=== PATIENT | male | born 1950 | race Caucasian/White ===

== ENCOUNTER 2024-05-26 15:54 | Inpatient (IN) | payer OTHER, MEDICARE, SELFPAY ==
[2024-05-26] VITALS (13 sets, daily range): BP systolic 56–168; BP diastolic 46–93; BMI 25.7; BMI 25.4
--- NOTE | 2024-05-26 10:53 | ED.GENMED ---
History of Present Illness
General
Chief Complaint: Catheter/Tube Problem
Source: patient
Exam Limitations: none
Time Seen by Provider: 05/26/24 10:39
Nursing documentation reviewed up to this point in time: agreed with
History of Present Illness
History of Present Illness:
The patient is a 73-year-old man with a past medical history of end-stage renal disease who receives hemodialysis on Wednesdays and Fridays. Patient was sent by ambulance directly from dialysis today after his left upper extremity dialysis
fistula did not give blood properly. Patient reports that when they tried to stick a needle into the fistula, the blood seemed really dark and clotted. Patient reports that 2 days ago while doing dialysis, they did have some difficulty but were
able to access the fistula. Patient has no other complaints. He denies any increased pain in his left arm or fever.
Past History
Past History
ED Past Medical History: GERD, HTN, Hypercholesterolemia, Renal failure and Other (Gout, kidney transplant, ADHD, neuropathy, diverticulitis, colon polyps, alcohol abuse, cognitive deficiency, kidney stones)
ED Past Surgical History: Orthopedic and Other (AV shunt)
Social History
Tobacco: Former smoker
Alcohol: Occasional
Drug: None
Personal:
Living: with family
Employment: Retired
Family History
Family History: Other (Noncontributory)
Review of Systems
Review of Systems
Allergies reviewed?: Yes
All Other Systems: ROS reviewed and negative except as documented in HPI and ROS
Constitutional: Reports no symptoms
EENT: Reports no symptoms
Respiratory: Reports no symptoms
Cardiac: Reports no symptoms
ABD/GI: Reports no symptoms
: Reports no symptoms
Musculoskeletal: Reports edema
Skin: Reports no symptoms
Neurological: Reports no symptoms
Endocrine: Reports no symptoms
Hematologic/Lymphatic: Reports no symptoms
Psychiatric: Reports no symptoms
Phy Exam
Physical Exam
Physical Exam:
Physical Exam
General: no apparent distress, not acutely ill
Neck: supple. no meningeal signs. normal psoterior pharynx
Heart: s1/s2 regular rate and rhythm,
Lungs: no acute respiratory distress. clear bilaterally
Abdomen: Soft, nontender
Neuro: alert and oriented. no focal neurological deficits
Skin: no rash
Psychiatric: well kept. interactive and cooperative
Extremities: 2+ pitting edema bilateral lower extremities. Edematous left upper extremity with strong thrill of left upper arm fistula.
Course
Orders/Labs/Results
Orders:
Orders
05/26/24 10:50
US Hemodialysis Graft Urgent
Comment:
Reason For Exam: MALFUNCTIONED LEFT UPPER ARM HD FISTULA
05/26/24 12:43
Vascular Surgery Consult Urgent
Consulting Provider: Aditya Lowery
Was physician already notified: Yes
Reason for consult: malfunctioned left arm dialysis fistula
05/26/24 14:29
Complete Blood Count/With Diff Urgent
Comprehensive Metabolic Panel Urgent
Vital Signs
Initial and Last Documented VS:
Initial Vital Signs
Temp Pulse Resp BP Pulse Ox
98.5 F 57 16 149/62 98
05/26/24 10:37 05/26/24 10:37 05/26/24 10:37 05/26/24 10:37 05/26/24 10:37
Last Documented Vital Signs
Temp Pulse Resp BP Pulse Ox
98.5 F 50 16 120/54 98
05/26/24 10:37 05/26/24 13:45 05/26/24 13:45 05/26/24 13:03 05/26/24 10:45
MDM/Problems Addressed
Differential Diagnosis Includes:
Venous thrombosis of left upper extremity, arterial thrombosis of left upper extremity, pseudoaneurysm of fistula
MDM/Problems Addressed:
Patient presents with acute malfunction of left upper extremity fistula
Chronic conditions affecting care:
End-stage renal disease
Acute Exacerbation and/or Progression of Chronic Illness:
Patient may have acute fluid overload due to progression of end-stage renal disease and not getting dialysis today
*Radiology
Radiology exam reviewed: radiology read reviewed
*Pulse Oximetry
Patient hypoxic: no
*EKG
Interpreted by ED Provider?: NA
*Chocolate Maker Interpretation
Rate: Chocolate Maker- N/A
*Critical Care Note
Total Time (30-74mins, 75-104mins- exclusive of procedures): Not Applicable
Data Reviewed
Review of Other/Old Records Reveals: Operative Reports (Left upper extremity fistula surgery performed by Dr. Lowery in 2020. Operative note reviewed by me)
Source: patient
Patient Management
Discussion with other providers: Hospitalist and Other (Case discussed with vascular surgery who recommended starting with a hemodialysis ultrasound, nephrology and interventional radiology also notified)
Update Note
Update Note:
2:20 PM patient evaluated by Dr. Lowery. He will follow-up with the patient in the next few weeks. In the meantime, he suggested that interventional radiology should place a short-term access for dialysis
ED Attending Note
-
Portions of this chart may have been created with voice recognition software.� Occasional wrong word or��sound alike� substitutions may have occurred due to the inherent limitations of voice recognition software.
Discharge Plan
Departure
Patient Disposition: Admit
Date of Disposition: 05/26/24
Time of Disposition: 14:18
Admit to: Med/Surg
Presentation/result/management discussed w/ accepting MD/DO: Hospitalist
Patient with high blood pressure during this ER visit?: No
Condition: Good
Covid-19: Not Applicable
Discharge Problem:
Thrombosis of arteriovenous dialysis fistula
Prescriptions:
No Action
atorvastatin 40 MG tablet
40 mg PO HS
febuxostat 40 MG tablet
40 mg PO DAILY
magnesium oxide 400 mg magnesium Tablet
400 mg PO BID
epoetin erika 2,000 unit/mL Solution
1,000 unit SC MOWEFR
acetaminophen [Tylenol] 325 mg Tablet
650 mg PO Q6HPRN PRN (Reason: mild pain)
melatonin 3 mg Tablet
3 mg PO HS
aspirin 81 mg Tablet,Delayed Release (Dr/Ec)
81 mg PO DAILY
magnesium hydroxide [Milk of Magnesia] 400 mg/5 mL Suspension
2,400 mg PO DAILYPRN PRN (Reason: if no bm by 3rd day)
bisacodyl [Dulcolax (bisacodyl)] 10 mg Suppository
10 mg VA DAILYPRN PRN (Reason: if no bm aftr mom)
Fleet Enema 19-7 gram/118 mL Enema
118 ml VA DAILYPRN PRN (Reason: if bm aftr dulcalax)
gabapentin 100 mg Capsule
100 mg PO HS
tacrolimus [Prograf] 1 mg Capsule
2 mg PO DAILY
metoprolol tartrate 25 mg Tablet
25 mg PO BID
prednisone 20 mg Tablet
20 mg PO DAILY
Referrals:
Forrest Mora DO [Family Provider] -
Interventions
Interventions:
*Risk Screen - Suicide Last Done: 05/26/24 10:37
*General Assessment Last Done: 05/26/24 10:37
*Neglect/Abuse Screening Last Done: 05/26/24 10:37
*ED- Fall Risk Assessment Last Done: 05/26/24 10:37
*ED COVID-19 Vaccine History Last Done: 05/26/24 10:37
LC-Aejidk-Cyfrbjlyix Assessment Last Done: 05/26/24 10:51
ED-Male Genitourinary Assessment Last Done: 05/26/24 10:51
Discharge Date and Time
Print Language: SRI LANKAN
--- NOTE | 2024-05-26 14:19 | CON.VAS ---
Consultation
Consultation Request
Date/Time Consultation Requested: 05/26/24
Date/Time Consultation Performed: 05/26/24
Requesting Provider: ER
Performing Provider: Sebastián
Reason for Consultation: LUE AV fistula issues
Medical History
-
Chief Complaint: Unable to access fistula/complete dialysis.
History of Present Illness:
73-year-old male known to me status post left upper extremity brachiobasilic arteriovenous fistula creation with single-stage basilic vein transposition performed 02/07/2021. Presents to the emergency room with issues on dialysis. [place] were
used to access the fistula and the dark blood or clot was returned. Patient notes that they had some difficulty the last couple times before as well but were able to complete dialysis. Today were unable to complete dialysis. Therefore he was
referred to the emergency room. He is on Friday/Friday/Friday hemodialysis patient.
Past Medical History
Past Medical History: GERD, HTN and Renal Failure
Past Surgical History: Orthopedic and Other (Hernia, AV fistua/basilic vein transposition (see HPI). Renal transplantation ([facility]))
Social History
Tobacco: Former Smoker
Allergies / Home Medications
Allergy/AdvReac Type Severity Reaction Status Date / Time
allopurinol Allergy Anaphylaxis Verified 12/17/22 11:26
- DRESS
syndrome
pollen extracts Allergy Sneezing, Verified 12/17/22 11:26
watery
eyes -
seasonal
�Medication �Instructions �Recorded �Confirmed �Type
gabapentin 300 mg capsule 300 mg PO DAILY Neurological 06/26/17 12/18/22 History
Condition
atorvastatin 40 mg tablet 40 mg PO QPM High cholesterol 10/03/17 12/17/22 History
febuxostat 40 mg tablet 40 mg PO DAILY Gout 02/01/21 12/17/22 History
atovaquone 750 mg/5 mL oral 1,500 mg PO DAILY Prophylaxis 12/17/22 12/17/22 History
suspension
leflunomide 10 mg tablet 10 mg PO DAILY Autoimmune Disorder 12/17/22 12/17/22 History
magnesium oxide 400 mg PO BID Electrolyte Repletion 12/17/22 12/17/22 History
tacrolimus 1 mg capsule, 3 mg PO DAILY Transplant 12/17/22 12/17/22 History
immediate-release
sildenafil 25 mg tablet (Viagra) 25 mg PO DAILY PRN erectile 12/18/22 12/18/22 History
disfunction
valganciclovir 450 mg tablet 900 mg PO DAILY prophylaxis 12/18/22 12/18/22 History
amlodipine 5 mg tablet 5 mg PO HS Blood pressure #0 tabs 12/22/22 Rx
cyanocobalamin (vitamin B-12) 1,000 mcg PO DAILY Supplement #0 12/22/22 Rx
1,000 mcg tablet tabs
dextroamphetamine-amphetamine 15 15 mg PO BID PRN add #0 tabs 12/22/22 Rx
mg tablet (Adderall)
hydrocortisone 1 % topical cream 1 applic topical BID PRN rash to 12/22/22 Rx
back /chest #28.35 grams
labetalol 100 mg tablet 100 mg PO BID Blood pressure #0 12/22/22 Rx
tabs
tacrolimus 1 mg capsule, 3 mg (3 x 1 mg) PO QPM Transplant 12/22/22 Rx
immediate-release #0 caps
Physical Exam
Vital Signs
Temp Pulse Resp BP Pulse Ox
98.5 F 50 16 120/54 98
05/26/24 10:37 05/26/24 13:45 05/26/24 13:45 05/26/24 13:03 05/26/24 10:45
Physical Exam
General: Well Developed, Well Nourished, No Apparent Distress and Comfortable; Negative Respiratory Distress
HEENT: Normocephalic, Anicteric and Atraumatic
Respiratory: Non Labored Respirations
Musculoskeletal: Edema (Left upper extremity fistula with good thrill, however there is hematoma subcutaneous as palpable. Infiltration of the fistula site from recent needle attempt. Mildly pulsatile fullness in the hematoma, but no overtly large
pseudoaneurysm. No tenderness. No skin changes. Hand is pink and warm.)
Skin: Warm
Assessment / Plan
-
End-stage renal disease on hemodialysis.
� His fistula is functional. I reviewed his ultrasound that demonstrates good flow volumes. There is a pseudoaneurysmal component with mostly thrombosed pseudoaneurysm. This is consistent with his exam and that I can palpate hematoma/infiltration
of the fistula. Based on this, there is not much I can do acutely for this fistula as the site is infiltrated. Need to rest that site to allow hematoma to reabsorb and then we can reassess fistula for possible fistulogram if needed. The
ultrasound demonstrates a potential outflow stenosis based on velocity but based on color/grayscale imaging it does not appear to be severely stenotic. Regardless may benefit from fistulogram eventually, but not at this time with infiltration of
the site. I would recommend resting of the fistula for few weeks. Tunneled dialysis catheter placement for now. Discussed with emergency room staff.
Data Reviewed
-
Ultrasound: Image Personally Visualized and interpreted and Report Reviewed by me
Total Time Spent with Patient (in minutes): 25
--- NOTE | 2024-05-26 14:48 | HPS.HSE ---
Addendum entered and electronically signed by Lilian Montaño MD 05/26/24 16:09:
HPI: 73-year-old male with PMH of GERD, HTN, HLD, ESRD on dialysis, ADHD, neuropathy; presented 2/2 AV fistula dysfunction, hence unable to continue with outpatient hemodialysis.
A/P:
# Thrombosis/pseudoaneurysm of left upper arm AV fistula
Vascular recommended not to use fistula for 2 weeks to allow hematoma to reabsorb
IR consulted for Tunneled dialysis
# ESRD on dialysis MWF
Nephrology consult for HD
Prograf and prednisone continued
# Hypertension
metoprolol
# Insomnia
melatonin
# Hyperlipidemia
continue statin
# Gout
continue Febuxostat
# neuropathy
Cont gabapentin
FULL CODE
DVT ppx: SC heparin
Original Note:
Family Physician
-
Family Physician: Forrest Mora, DO
Chief Complaint
-
`unable to access fistular
History of Present Illness
73-year-old male with PMH for GERD, HTN, HLD, ESRD on dialysis, ADHD neuropathy presented to us with fistula dysfunction. the breeder service technician were getting dark blood or clots in return. patient has left upper extremity brachiobasilic arteriovenous
fistula creation with single-stage basilic vein transposition performed 02/07/2021. patient stated left UE swelling for past one month. Patient denied any fever, chills, redness at the site. Patient denied any congestion or cough. Patient denied
any headache, dizziness syncope. Patient denied chest pain or short of breath. Patient denied any abdominal pain, nausea, vomiting or diarrhea. Patient denied dysuria hematuria. Patient has chronic lower extremities edema. Patient was not able
to get full dialysis session today.
Admitted for further management
Medical History
Past Medical History
Past Medical History: Reports Other
Additional Past Medical History:
Alcohol abuse
CKD
Hyperlipidemia
Osteoarthritis
Hyperparathyroidism
Gout
Anemia
Hypertension
Anxiety
Iron deficiency anemia
ADHD
Past Surgical History: Reports Other
Additional Past Surgical History:
Left hip ORIF
Left inguinal hernia
Left knee meniscal surgery
Septoplasty
Cataract surgery
Colonic polypectomy
Left TKA
Right cells, silk sling cancer
Social History
Tobacco: Non-smoker
Alcohol: Former
Drug: None
Personal: Single
Living: Alone
Family History
Family History: Not pertinent
Allergies / Home Medications
Allergies reflects when Allergies were last updated in [facility].
Home Medications with original date entered in [facility]
Allergy/Medication List:
Allergies
Allergy/AdvReac Type Severity Reaction Status Date / Time
allopurinol Allergy Anaphylaxis Verified 12/17/22 11:26
- DRESS
syndrome
pollen extracts Allergy Sneezing, Verified 12/17/22 11:26
watery
eyes -
seasonal
Home Medications
atorvastatin 40 mg tablet 40 mg PO HS High cholesterol 10/03/17
febuxostat 40 mg tablet 40 mg PO DAILY Gout 02/01/21
magnesium oxide 400 mg PO BID Electrolyte Repletion 12/17/22
acetaminophen 325 mg tablet (Tylenol) 650 mg PO Q6HPRN PRN mild pain 05/26/24
aspirin 81 mg tablet,delayed release 81 mg PO DAILY 05/26/24
bisacodyl 10 mg rectal suppository (Dulcolax (bisacodyl)) 10 mg SC DAILYPRN PRN if no bm aftr mom 05/26/24
epoetin erika 2,000 unit/mL injection solution 1,000 unit SC MOWEFR during dialysis 05/26/24
gabapentin 100 mg capsule 100 mg PO HS 05/26/24
magnesium hydroxide 400 mg/5 mL oral suspension (Milk of Magnesia) 2,400 mg PO DAILYPRN PRN if no bm by 3rd day 05/26/24
melatonin 3 mg tablet 3 mg PO HS 05/26/24
metoprolol tartrate 25 mg tablet 25 mg PO BID 05/26/24
prednisone 20 mg tablet 20 mg PO DAILY 05/26/24
sodium phosphates 19 gram-7 gram/118 mL enema (Fleet Enema) 118 ml SC DAILYPRN PRN if bm aftr dulcalax 05/26/24
tacrolimus 1 mg capsule, immediate-release (Prograf) 2 mg PO DAILY daily 05/26/24
Review of Systems
-
Constitutional: Reports No Symptoms
EENT: Reports No Symptoms
Respiratory: Reports No Symptoms
Cardiac: Reports No Symptoms
Abdomen/GI: Reports No Symptoms
: Reports No Symptoms
Musculoskeletal: Reports Edema (Bilateral lower extremities edema, left upper extremity edema)
Skin: Reports No Symptoms
Neurological: Reports No Symptoms
Endocrine: Reports No Symptoms
Hematologic/Lymphatic: Reports No Symptoms
Psych: Reports No Symptoms
Physical Exam
Vital Signs
Vital Signs
Temp Pulse Resp BP Pulse Ox
98.5 F 50 16 120/54 98
05/26/24 10:37 05/26/24 13:45 05/26/24 13:45 05/26/24 13:03 05/26/24 10:45
Physical Exam
General: Well Developed, Well Nourished and No Apparent Distress
HEENT: NormoCephalic, Moist mucous membranes and Atraumatic
Respiratory: Clear
Cardiac: S1/S2 and Regular Rhythm; No Murmur or Rub
GI: Soft, Non Tender, Non Distended and Normal Bowel Sounds; No Organomegaly
Rectal: Deferred by Provider
Musculoskeletal: No Clubbing, No Cyanosis, No Edema and Other (Upper extremity edema, lower extremities edema)
Skin: No Rash
Neuro: AO x 3 and Nonfocal/grossly intact
Psych: Calm
Data Reviewed
-
Diagnostic Radiology: Report Reviewed by me
Lab Data: Labs Reviewed by me
Impression/Plan
-
# Thrombosis/pseudoaneurysm of left upper arm fistula
-Vascular recommended not to use fistula for 2 weeks for that site to allow hematoma to reabsorb
-IR consulted for Tunneled dialysis
-hemodialysis US with upper extremity arteriovenous fistula with velocities and flow volumes as above. Distal outflow vein stenosis with velocity up to 575 cm/s. There is associated somewhat greater than expected pulsatility of the outflow vein
waveforms.
2. Pseudoaneurysm arising from the proximal outflow vein as above, up to 3.7 cm in diameter. This shows only a small amount of color Doppler flow immediately adjacent to the outflow vein, with clot within the majority of the pseudoaneurysm sac.
#ESRD on dialysis
-MWF
-epoetin on dialysis daily
-nephrology consulted
-Prograf and prednisone continued
#Hypertension
-metoprolol continued
#Insomnia
-melatonin
#Hyperlipidemia-continue statin
#Gout-continue Febuxostat
#neuropathy-gabapentin continued
#Diverticulosis
FULL CODE
SC heparin
--- NOTE | 2024-05-26 15:01 | W.CON.NEPH ---
Consultation
-
Date/Time Consultation Requested: 05/26/2024 2:45 PM
Date/Time Consultation Performed: 05/26/2024 3:00
Requesting Provider: Dr. De Santiago
Performing Provider: Dr. De La Vega
Reason for Consultation: End-stage renal disease
Medical History
-
Chief Complaint: End-stage renal disease
History of Present Illness:
The patient is a 73-year-old male with a past medical history of end-stage renal disease who dialyzes Wednesdays and Fridays via his left upper extremity AV fistula. He is a former renal transplant and is maintained chronically on prednisone
and tacrolimus in October of 2021 with now failed transplant. He is maintained on SONJA for his anemia of chronic kidney disease and metoprolol for his history of hypertension. He presented to the hospital with infiltration and hematoma of his
access in his left upper extremity AV fistula. Follow-up arterial duplex of the fistula revealed pseudoaneurysm. He is now going to be admitted as he missed his regularly scheduled dialysis today and currently has no access. He was seen by
vascular surgery who wishes to pursue resting the fistula at this time.
Past Medical History
ESRD Friday
Failed renal transplant from 2021
Hypertension
BK viremia
ADD-takes Adderall
Hyperlipidemia
Gout
GERD
Diverticulosis
Cognitive dysfunction per chart
ED
spinal stenosis
OA
post op Afib 10/2021
PAST SURGICAL HISTORY:
1. Left hip ORIF.
2. Left inguinal hernia.
3. Left knee meniscal surgery.
4. Septoplasty.
5. Cataract surgery.
6. Shoulder arthroscopy.
7. Kidney biopsy 2017.
8. Colonic polypectomy.
9. Left total knee replacement 2018.
10. Reports kidney biopsy arteriogram with coil embolization June
2017.
11. Right leg squamous cell skin cancer.
12. Left upper extremity AV fistula creation January 2021.
13. Kidney transplant October 2021.
14. History of transplant kidney biopsies November 2021April
2022.
15. Transplant original stents removed October 2021.
Social History
Tobacco: Former Smoker
Alcohol: Former
Family History
No CKD
Allergies / Home Medications
Allergy/AdvReac Type Severity Reaction Status Date / Time
allopurinol Allergy Anaphylaxis Verified 12/17/22 11:26
- DRESS
syndrome
pollen extracts Allergy Sneezing, Verified 12/17/22 11:
watery
eyes -
seasonal
�Medication �Instructions �Recorded �Confirmed �Type
atorvastatin 40 mg tablet 40 mg PO HS High cholesterol 10/03/17 05/26/24 History
febuxostat 40 mg tablet 40 mg PO DAILY Gout 02/01/21 05/26/24 History
magnesium oxide 400 mg PO BID Electrolyte Repletion 12/17/22 05/26/24 History
acetaminophen 325 mg tablet 650 mg PO Q6HPRN PRN mild pain 05/26/24 05/26/24 History
(Tylenol)
aspirin 81 mg tablet,delayed 81 mg PO DAILY 05/26/24 05/26/24 History
release
bisacodyl 10 mg rectal suppository 10 mg HI DAILYPRN PRN if no bm 05/26/24 05/26/24 History
(Dulcolax (bisacodyl)) aftr mom
epoetin erika 2,000 unit/mL 1,000 unit SC MOWEFR during 05/26/24 05/26/24 History
injection solution dialysis
gabapentin 100 mg capsule 100 mg PO HS 05/26/24 05/26/24 History
magnesium hydroxide 400 mg/5 mL 2,400 mg PO DAILYPRN PRN if no bm 05/26/24 05/26/24 History
oral suspension (Milk of Magnesia) by 3rd day
melatonin 3 mg tablet 3 mg PO HS 05/26/24 05/26/24 History
metoprolol tartrate 25 mg tablet 25 mg PO BID 05/26/24 05/26/24 History
prednisone 20 mg tablet 20 mg PO DAILY 05/26/24 05/26/24 History
sodium phosphates 19 gram-7 118 ml HI DAILYPRN PRN if bm aftr 05/26/24 05/26/24 History
gram/118 mL enema (Fleet Enema) dulcalax
tacrolimus 1 mg capsule, 2 mg PO DAILY daily 05/26/24 05/26/24 History
immediate-release (Prograf)
Review of Systems
-
History Source: Patient
All other systems: Negative unless noted
Cardiac: No Symptoms
Abdomen/GI: No Symptoms
: Other (Essentially an uric)
Musculoskeletal: Edema and Other (Gait dysfunction weakness in lower extremities)
Physical Exam
Vital Signs
Vital Signs
Temp Pulse Resp BP Pulse Ox
98.5 F 50 16 120/54 98
05/26/24 10:37 05/26/24 13:45 05/26/24 13:45 05/26/24 13:03 05/26/24 10:45
Physical Exam
General: AOx2, Nontoxic , NAD, obese, patient is confused was unable to give me consistent answers
HEENT: PERRL, EOMI, Anicteric, Conjunctivae Clear, Ear/Nose Intact, Hearing Normal, Oropharynx Clear/Moist, Dentition Intact, Facial Symmetry, Neck Supple, Neck: Trachea Midline, No JVD and No Thyromegaly, no Bruits
Respiratory: Coarse to auscultation decreased breath sounds towards the bases and with with normal lung exersion
Cardiac: S1/S2 and Regular Rate/Rhythm
Breast: Deferred by me
Abdomen: Soft, Nontender, Nondistended, Normal Bowel Sounds and No Hepatosplenomegaly
Rectal: Deferred by Provider
Genito-urinary: No Costovertebral Tenderness
Extremities: No Clubbing, No Cyanosis and 2+ pitting edema of all 4 extremities
Skin: No Rash or open lesions
Neuro: Nonfocal/Grossly Intact, CN II-XII (Intact) and Strength (Musculoskeletal exam 5 out of 5 both upper and lower extremities)
Hematologic/Lymphatic: No Cervical Lymphadenopathy, No Submandibular Lymphadenopathy and No Supraclavicular Lymphadenopathy
Psych: Mood/afflect pleasant, Insight/judgement good and Appropriate
Vascular: plus 1 pedal and radial pulses
Vascular Access: AVF (Left upper extremity with thrill and bruit)
Data Reviewed
-
Ultrasound: Report Reviewed by me (Reviewed AV fistula duplex performed today with noted pseudoaneurysm formation by report) and Other
Labs: Labs Reviewed by me (BMP CBC)
Old Records: Reviewed (Reviewed previous nephrology consult from date 12/20/2022 for acute renal failure)
Assessment/Plan
-
Impression:
ESRD MWF ([facility])
Left upper extremity AV fistula with infiltration and pseudoaneurysm
Hypertension
History of failed renal transplant from 2021
Plan:
Patient will require tunneled catheter to let AV fistula heal
IR has been consulted
Dialysis will be provided tomorrow
Orders provided
Appropriate dietary and fluid guidelines to be placed
Patient is massively volume overloaded but does not require acute dialysis today he is not hypoxic
[2024-05-26 15:33] LABS: % Basophils 0.1 % (0-2); % Immature Granulocytes 0.4 % (0-0.5); % Lymphocytes 14.4 % (20.5-51.1); % Monocytes 2.1 % (1.7-9.3); Absolute Lymphocytes 1.2 10^3/uL (1.2-3.4); Absolute Monocytes 0.2 10^3/uL (0.1-0.6); Absolute Neutrophils 6.7 10^3/uL (1.4-6.5); Hematocrit 30.7 % (39.0-52.0); Hemoglobin 9.7 g/dL (13.0-18.0); Mean Corp Hgb Conc. 31.6 g/dL (33.0-37.0); Mean Corpuscular Hgb 31.6 pg (27.0-31.0); Nucleated Red Blood Cells % 0 % (-); Platelet Count 230 10^3/uL (130-400); Red Blood Cell Count 3.07 10^6/uL (4.70-6.10); Red Cell Dist. Width 17.2 % (11.5-14.5); White Blood Cell Count 8.1 10^3/uL (4.8-10.8)
[2024-05-26 15:47] LABS: ALT (SGPT) 40 U/L (0-50); AST (SGOT) 43 U/L (17-59); Albumin 2.2 g/dl (3.5-5.0); Alkaline Phosphatase 115 U/L (38-126); Blood Urea Nitrogen 70 mg/dl (9-20); Calcium 7.7 mg/dl (8.4-10.2); Carbon Dioxide 30 mmol/L (22-30); Chloride 97 mmol/L (98-107); Estimated Creatinine Clearance 10 ml/min; Glucose 107 mg/dl (70-99); Potassium 5.6 mmol/L (3.5-5.1); Sodium 132 mmol/L (135-145); Total Bilirubin 0.4 mg/dl (0.2-1.3); Total Protein 4.6 g/dl (6.3-8.2); eGFR 7.73
[2024-05-26] MEDS: ANCEF 10 IV (16:28)
[2024-05-26] MEDS: LOPRESSOR PO (20:36)
[2024-05-26] MEDS: HEPARIN 5000 UNITS SC (20:39)
[2024-05-26] MEDS: MAG-TAB SR 84 MG PO (20:39)
[2024-05-26] MEDS: LIPITOR 40 MG PO (22:07)
[2024-05-26] MEDS: MELATONIN 3 MG PO (22:07)
[2024-05-26] MEDS: NEURONTIN 100 MG PO (22:07)
[2024-05-27] MEDS: TYLENOL 650 MG PO (05:31)
[2024-05-27 05:41] VITALS: BMI 25.4
[2024-05-27 07:55] VITALS: BP 148/54
[2024-05-27] MEDS: DELTASONE 20 MG PO (07:57)
[2024-05-27] MEDS: MAG-TAB SR 84 MG PO ×2 (07:58→21:45)
[2024-05-27] MEDS: SENOKOT-S 1 TABLET PO (07:58)
[2024-05-27] MEDS: ASPIR LOW (ENTERIC COATED) 81 MG PO (07:58)
[2024-05-27] MEDS: LOPRESSOR PO (07:58)
[2024-05-27] MEDS: HEPARIN SC ×2 (07:59→21:53)
[2024-05-27] MEDS: FLEXBUMIN 25% FOR HEMODIALYSIS 12.5 GRAMS IV ×2 (08:35→10:50)
[2024-05-27] MEDS: MANNITOL 25% 12.5 GRAMS IV ×2 (08:40→10:51)
[2024-05-27 08:51] LABS: Hematocrit 31.1 % (39.0-52.0); Hemoglobin 9.6 g/dL (13.0-18.0)
[2024-05-27 09:09] LABS: Blood Urea Nitrogen 77 mg/dl (9-20); Calcium 7.5 mg/dl (8.4-10.2); Carbon Dioxide 29 mmol/L (22-30); Chloride 96 mmol/L (98-107); Estimated Creatinine Clearance 9 ml/min; Glucose 125 mg/dl (70-99); Potassium 4.8 mmol/L (3.5-5.1); Sodium 132 mmol/L (135-145); eGFR 6.38
[2024-05-27] MEDS: RETACRIT 6000 UNITS IV (09:37)
--- NOTE | 2024-05-27 10:09 | W.PN.HOSP.TC ---
Today's Communication/Plan
-
see A/P
Assessment / Plan
Assessment / Plan
HPI: 73-year-old male with PMH of GERD, HTN, HLD, ESRD on dialysis, ADHD, neuropathy; presented 2/2 AV fistula dysfunction, hence unable to continue with outpatient hemodialysis.
A/P:
# Thrombosis/pseudoaneurysm of left upper arm AV fistula
Vascular recommended to not use fistula for 2 weeks to allow hematoma to reabsorb
s/p Tunneled dialysis placement by IR 05/26/2024
# ESRD on dialysis MWF
Nephrology on board for HD
Prograf and prednisone continued
# Hypertension
metoprolol
# Insomnia
melatonin
# Hyperlipidemia
continue statin
# Gout
continue Febuxostat
# neuropathy
Cont gabapentin
FULL CODE
DVT ppx: SC heparin
Dispo: Pt requesting a different NH. Consulted CM to assist
Anticipated Discharge: 24 - 48 hours
Subjective/Interval History
-
Date of Service: May 27, 2024
Objective Data
-
Labs:
Laboratory Results
05/27/24
07:48
Hgb 9.6 L
Hct 31.1 L
Sodium 132 L
Potassium 4.8
Chloride 96 L
Carbon Dioxide 29
BUN 77 H
Creatinine 8.1 H*
Glucose 125 H
Calcium 7.5 L
Vital Signs:
Vital Signs
Temp Pulse Resp BP Pulse Ox
36.4 C 49 16 148/54 97
05/27/24 07:55 05/27/24 07:58 05/27/24 07:55 05/27/24 07:58 05/27/24 07:55
I&O
05/26/24 05/27/24 05/28/24
06:59 06:59 06:59
Intake Total 240 / 240
Balance 240 / 240
Review of Systems
-
All other systems: Reviewed and negative
Physical Exam
-
General: Well Developed, Well Nourished, No Apparent Distress, Comfortable and Conversant; Negative Respiratory Distress
HEENT: Normocephalic, Atraumatic, Nose Appears Normal and Ears Appear Normal; Negative Oxygen
Respiratory: Clear to Auscultation and Non Labored Respirations; Negative Accessory Resp Muscle Use
Cardiac: Regular Rhythm and S1/S2
GI: Soft, Nontender, Nondistended and Normal Bowel Sounds
Skin: Warm, Dry and IV Access / Catheter Site (R chest wall tunneled catheter )
Neuro: Awake, Alert, Oriented and AO x 3
Psych: Calm and Intact Judgement/Insight
Data Reviewed
-
Labs: Labs Reviewed by me
--- NOTE | 2024-05-27 10:21 | W.PN.NEPH.HD ---
Assessment
-
Patient seen on dialysis
No new complaint
Systolic blood pressure stable at 118 at current UF
Tunneled catheter with good function
Patient should be discharged after dialysis
Next dialysis will be at home unit tomorrow
Progress Note - Hemodialysis
-
Date of Service: May 27, 2024
Duration: 45 minutes and 3 hours
Potassium Bath: 2
Calcium Bath: 2.5
Opti-Dialyzer: 160
Ultrafiltration: Other (4 kg as hemodynamically tolerated)
Blood Flow: 400
Dialysate Flow: 600
Heparin: none
EPO: 6000
--- NOTE | 2024-05-27 11:09 | CM ---
Reviewed the chart notes and spoke with the patient and his ex- Maura at the bedside. Patient currently being dialyzed. The patient was recently at [facility] and transferred to [facility] 10 days ago for short term rehab. The
patient previously resided in a two story home with six steps to enter. The patient prior used a rolling walker with ambulation. The patient was receiving HD at [place] . The patient does not want to return to [facility]. CM explain to the
patient that being on HD is a barrier to placement. CM explained that once PT/OT sees patient referrals can be sent out to other facilities to see if able to accept a person on HD whether on site or be able to transport to original outpatient HD
site. Precert will be required. CM continues to be available to patient/family and is monitoring medical plan for needs at discharge.
Plan: Discharge to SNF/rehab that can accommodate HD. Precert will be required.
[2024-05-27] MEDS: HEPARIN 4300 UNITS INTRACATH (12:08)
[2024-05-27] MEDS: PROGRAF 2 MG PO (13:21)
[2024-05-27] MEDS: ULORIC 40 MG PO (13:21)
[2024-05-27 14:59] VITALS: BMI 25.4
[2024-05-27 15:25] VITALS: BP 138/53
--- NOTE | 2024-05-27 15:40 | WOUNDNOTE ---
[facility] RN note: Patient admitted with thrombosis. Patient lives at home.
See H&P for complete history.
PMH: ESRD on HD, failed renal transplant (prednisone, Tacrolimus), HTN, gout, cognitive dysfunction, former smoker, spinal stenosis, L hip ORIF, L TKR, R leg squamous cell skin cancer.
Wound Location and type/assessment: Patient admitted with: Coccyx/L buttocks stage 3 pressure injury vs deep dermal stage 2 with discolored skin around it. L dorsal foot dry linear abrasion. L upper arm bruises. Blanchable mild red heels.
Appetite: very good.
Pressure redistribution devices in place: [employer]. Air chair cushion. Patient can move self in bed and he lays on his side on his home bed at night.
Plan: Waffle air overlay applied after discussing with ZAFAR Mna. Silicone border foam changed on coccyx/buttocks. Instructed pressure injury prevention measures, suggested he follow up at [facility] and suggested he request VN with production planner scheduler
if goes home when discharged.
Will confirm orders with Dr. Montaño and discussed with ZAFAR Man.
Care plan to be updated and will follow as needed.
Note to case management requested for discharge: VN if goes home.
Recommend follow up at wound care center upon discharge.
[2024-05-27 19:33] LABS: Hepatitis B Surface Antigen Negative (Negative)
[2024-05-27] MEDS: NEURONTIN 100 MG PO (21:45)
[2024-05-27] MEDS: LIPITOR 40 MG PO (21:45)
[2024-05-27] MEDS: MELATONIN 3 MG PO (21:46)
[2024-05-27] MEDS: LOPRESSOR 25 MG PO (21:46)
[2024-05-27 23:01] VITALS: BP 132/53
[2024-05-28 04:49] VITALS: BMI 25.5
[2024-05-28 08:10] VITALS: BP 115/63
--- NOTE | 2024-05-28 08:18 | PN.CDI ---
CDI
- -
CDI:
Physician Documentation Request
Admit Date: 05/26/24 15:54
Dear Doctor Sabra,
Please review the following and provide your response in the progress notes.
Clinical Indicators:
- RN Skin assessments indicate Stage 3 coccyx pressure injury, POA
Physician documentation of the type and location of wounds is required for compliant documentation. Based on the above clinical findings and your assessment, please provide the following in your progress note:
1. Location of the ulcer/wound, including laterality.
2. Type (etiology) of ulcer/wound:
- Diabetic ulcer
- Arterial (ischemic) ulcer
- Venous stasis ulcer
- Pressure (decubitus) ulcer
- Other
Use of terms such as suspected, likely, concern for, or probable (associated with a specific diagnosis that is being evaluated, monitored, or treated as if it exists) are acceptable and can be coded in the inpatient setting, when documented at the
time of discharge.
Thank you,
Jordan Wahl RN
CDI Specialist
Please use your independent medical judgment in providing your response.
*Source: National Pressure Ulcer Advisory Panel (NPUAP)
[2024-05-28] MEDS: HEPARIN 5000 UNITS SC (08:54)
[2024-05-28] MEDS: DELTASONE 20 MG PO (08:55)
[2024-05-28] MEDS: ASPIR LOW (ENTERIC COATED) 81 MG PO (08:55)
[2024-05-28] MEDS: ULORIC 40 MG PO (08:55)
[2024-05-28] MEDS: MAG-TAB SR 84 MG PO ×2 (08:55→21:28)
[2024-05-28] MEDS: LOPRESSOR 25 MG PO ×2 (08:56→21:29)
[2024-05-28] MEDS: PROGRAF 2 MG PO (08:57)
[2024-05-28 11:15] VITALS: BP 127/67
[2024-05-28 11:35] VITALS: BP 129/63; PULSE 68; O2SAT 98
--- NOTE | 2024-05-28 12:11 | W.PN.HOSP.TC ---
Addendum entered and electronically signed by Lilian Montaño MD 05/28/24 12:55:
# Stage 3 coccyx pressure injury, POA
Original Note:
Today's Communication/Plan
-
see A/P
Assessment / Plan
Assessment / Plan
HPI: 73-year-old male with PMH of GERD, HTN, HLD, ESRD on dialysis, ADHD, neuropathy; presented 2/2 AV fistula dysfunction, hence unable to continue with outpatient hemodialysis.
A/P:
# Thrombosis/pseudoaneurysm of left upper arm AV fistula
Vascular recommended to not use fistula for 2 weeks to allow hematoma to reabsorb
s/p Tunneled dialysis placement by IR 05/26/2024
# ESRD on dialysis MWF
Nephrology on board for HD need
Prograf and prednisone continued
# Hypertension
metoprolol
# Insomnia
melatonin
# Hyperlipidemia
continue statin
# Gout
continue Febuxostat
# neuropathy
Cont gabapentin
FULL CODE
DVT ppx: SC heparin
Dispo: Pt requesting a different NH. CM on board to facilitate
Anticipated Discharge: > 48 hours
Subjective/Interval History
-
Date of Service: May 28, 2024
Objective Data
-
Vital Signs:
Vital Signs
Temp Pulse Resp BP Pulse Ox
36.7 C 67 17 115/63 98
05/28/24 08:10 05/28/24 08:56 05/28/24 08:10 05/28/24 08:56 05/28/24 11:16
I&O
05/27/24 05/28/24 05/29/24
06:59 06:59 06:59
Intake Total 240 / 240 960 / 960
Output Total 0 / 0
Balance 240 / 240 960 / 960
Review of Systems
-
All other systems: Reviewed and negative
Physical Exam
-
General: Well Developed, Well Nourished, No Apparent Distress, Comfortable and Conversant; Negative Respiratory Distress
HEENT: Normocephalic, Atraumatic, Nose Appears Normal and Ears Appear Normal; Negative Oxygen
Respiratory: Clear to Auscultation and Non Labored Respirations; Negative Accessory Resp Muscle Use
Cardiac: Regular Rhythm and S1/S2
GI: Soft, Nontender, Nondistended and Normal Bowel Sounds
Musculoskeletal: Edema, Right Lower Extrem and Edema, Left Lower Extrem
Skin: Warm, Dry and IV Access / Catheter Site (R chest wall tunneled catheter )
Neuro: Awake, Alert, Oriented and AO x 3
Psych: Calm and Intact Judgement/Insight
Data Reviewed
-
Labs: Labs Reviewed by me
[2024-05-28 14:02] LABS: Blood Urea Nitrogen 53 mg/dl (9-20); Calcium 7.5 mg/dl (8.4-10.2); Carbon Dioxide 30 mmol/L (22-30); Chloride 95 mmol/L (98-107); Estimated Creatinine Clearance 13 ml/min; Glucose 153 mg/dl (70-99); Potassium 4.3 mmol/L (3.5-5.1); Sodium 131 mmol/L (135-145); eGFR 9.93
[2024-05-28] MEDS: RETACRIT 4000 UNITS IV (14:11)
[2024-05-28] MEDS: MANNITOL 25% 12.5 GRAMS IV (15:03)
--- NOTE | 2024-05-28 15:05 | CM ---
Reviewed the chart notes. Patient received HD today. [facility] and [place] are looking into cost of transportation from SNF to patient's home HD center [facility]. CM continues to be available to patient/family and is
monitoring medical plan for needs at discharge.
Plan: Discharge to SNF/rehab. Precert will be required.
[2024-05-28 15:10] VITALS: BP 102/53
[2024-05-28] MEDS: FLEXBUMIN 25% FOR HEMODIALYSIS 12.5 GRAMS IV (15:10)
--- NOTE | 2024-05-28 15:21 | W.PN.NEPH.HD ---
Assessment
-
pt seen during HD
vital stable
SBP 106, decreasing, UF lowered
likely extra UF tomorrow
CVC functions well
Progress Note - Hemodialysis
-
Date of Service: May 28, 2024
Duration: 30 minutes and 3 hours
Potassium Bath: 2
Calcium Bath: 2.5
Opti-Dialyzer: 160
Ultrafiltration: Other (3-3.5kg)
Blood Flow: 400
Dialysate Flow: 600
Heparin: no
EPO: 4000
[2024-05-28 16:42] VITALS: BP 140/60
[2024-05-28] MEDS: LIPITOR 40 MG PO (21:29)
[2024-05-28] MEDS: NEURONTIN 100 MG PO (21:29)
[2024-05-28] MEDS: MELATONIN 3 MG PO (21:29)
[2024-05-28] MEDS: HEPARIN SC (21:30)
[2024-05-28 23:15] VITALS: BP 127/67
[2024-05-29 00:22] VITALS: BP 127/67
[2024-05-29 02:56] LABS: Glucose - Point of Care 95 mg/dl (70-99)
[2024-05-29 03:13] VITALS: BP 143/68
--- NOTE | 2024-05-29 03:34 | PTCARENOTE ---
Pt on the call gilmore; states he woke from a sleep 'feeling funny'. Pt is unable to elaborate on his symptoms, just reiterates he feels 'weird'. AAOx3, no confusion noted, able to tell RN why he is in the hospital and the POC discussed at the
beginning of the shift, denies feeling confused, speech is clear and precise, denies having issues finding his words. Pt denies CP/palpitations/SOB/weakness. BP 143/68, HR 58. Accuchek 95. After a few minutes without intervention, pt reports he
feels fine, offers no complaints and states the 'funny feeling' has passed. Pt states he has received extra dialysis the last few days after missing a session and was extra tired this evening, he suspects he feel into a deep sleep and woke up
unexpectedly and wasn't fully awake. Covering SPEECH TEACHER notified, no new orders at this time. Pt resting comfortably in bed, call gilmore within reach.
[2024-05-29] MEDS: TYLENOL 650 MG PO (04:47)
[2024-05-29] MEDS: SENOKOT-S 1 TABLET PO ×2 (06:04→21:32)
[2024-05-29 07:50] VITALS: BP 155/61
[2024-05-29] MEDS: ULORIC 40 MG PO (08:58)
[2024-05-29] MEDS: ASPIR LOW (ENTERIC COATED) 81 MG PO (08:58)
[2024-05-29] MEDS: DELTASONE 20 MG PO (09:01)
[2024-05-29] MEDS: LOPRESSOR PO ×2 (09:01→20:38)
[2024-05-29] MEDS: MAG-TAB SR 84 MG PO ×2 (09:02→20:40)
[2024-05-29] MEDS: PROGRAF 2 MG PO (09:02)
[2024-05-29] MEDS: HEPARIN 5000 UNITS SC (09:03)
--- NOTE | 2024-05-29 10:41 | W.PN.HOSP.TC ---
Today's Communication/Plan
-
Doing well. Continue to work on getting appropriate bed.
Assessment / Plan
Assessment / Plan
73-year-old male with PMH of:
GERD,
essential HTN,
HLD,
ESRD on dialysis,
ADHD,
neuropathy
presented 2/2 AV fistula dysfunction, hence unable to continue with outpatient hemodialysis.
A/P:
1. Thrombosis/pseudoaneurysm of left upper arm AV fistula
Vascular recommended to not use fistula for 2 weeks to allow hematoma to reabsorb
s/p Tunneled dialysis placement by IR 05/26/2024
Further Management per surgical team
Ready to be discharged when appropriate bed found
2. ESRD on dialysis MWF
Nephrology on board for HD need
Prograf and prednisone continued
Ready to be discharged when appropriate bed found
3. Essential Hypertension - stable, Continue metoprolol
4. Insomnia - chronic, continue melatonin
5. Hyperlipidemia - Chronic - continue statin
6. Gout - chronic - continue Febuxostat
7. neuropathy - chronic - Cont gabapentin
FULL CODE
DVT ppx: SC heparin
Dispo: Pt requesting a different NH. CM on board to facilitate
Anticipated Discharge: 24 - 48 hours
Subjective/Interval History
-
Date of Service: May 29, 2024
Feels tired, but otherwise ok.
Objective Data
-
Labs:
Laboratory Results
05/29/24
06:00
Sodium Pending
Potassium Pending
Chloride Pending
Carbon Dioxide Pending
BUN Pending
Creatinine Pending
Glucose Pending
Calcium Pending
Vital Signs:
Vital Signs
Temp Pulse Resp BP Pulse Ox
98.4 F 54 16 155/61 99
05/29/24 07:50 05/29/24 09:01 05/29/24 07:50 05/29/24 09:01 05/29/24 07:50
I&O
05/28/24 05/29/24 05/30/24
06:59 06:59 07:59
Intake Total 960 / 960 930 / 930
Output Total 0 / 0 300 / 300
Balance 960 / 960 630 / 630
Review of Systems
-
History Source: Patient
All other systems: Reviewed and negative
Constitutional: Reports Fatigue
Physical Exam
-
General: Well Developed, Well Nourished, No Apparent Distress, Comfortable and Conversant
HEENT: Nose Appears Normal and Ears Appear Normal
Respiratory: Clear to Auscultation
Cardiac: Regular Rhythm and S1/S2
GI: Soft, Nontender and Nondistended
Musculoskeletal: Edema, Right Lower Extrem and Edema, Left Lower Extrem
Skin: Warm and Dry
Neuro: Awake, Alert and Oriented
Psych: Calm
Data Reviewed
-
Labs: Labs Reviewed by me
[2024-05-29] MEDS: FLEXBUMIN 25% FOR HEMODIALYSIS 12.5 GRAMS IV ×2 (13:45→14:40)
[2024-05-29] MEDS: MANNITOL 25% 12.5 GRAMS IV ×2 (13:51→14:44)
[2024-05-29 13:55] LABS: Blood Urea Nitrogen 42 mg/dl (9-20); Calcium 7.6 mg/dl (8.4-10.2); Carbon Dioxide 32 mmol/L (22-30); Chloride 92 mmol/L (98-107); Estimated Creatinine Clearance 16 ml/min; Glucose 170 mg/dl (70-99); Potassium 4.2 mmol/L (3.5-5.1); Sodium 131 mmol/L (135-145); eGFR 13.26
--- NOTE | 2024-05-29 14:54 | W.PN.NEPH.HD ---
Assessment
-
pt seen during HD
vitals stable
UF as much tolerates
edema improving
AVF +thrill, resting
CVC functioning
await placecment
Progress Note - Hemodialysis
-
Date of Service: May 29, 2024
Duration: 30 minutes and 2 hours
Opti-Dialyzer: 160
Ultrafiltration: Other (3.5-4kg)
Blood Flow: 350
Dialysate Flow: 600
Heparin: no
EPO: no
[2024-05-29] MEDS: HEPARIN 4300 UNITS INTRACATH (15:26)
[2024-05-29 15:35] VITALS: BP 124/50
[2024-05-29] MEDS: HEPARIN SC (20:39)
[2024-05-29] MEDS: NEURONTIN 100 MG PO (21:30)
[2024-05-29] MEDS: MELATONIN 3 MG PO (21:30)
[2024-05-29] MEDS: LIPITOR 40 MG PO (21:30)
[2024-05-30 06:00] VITALS: BMI 23.4
[2024-05-30 07:11] LABS: Blood Urea Nitrogen 56 mg/dl (9-20); Calcium 8.2 mg/dl (8.4-10.2); Carbon Dioxide 30 mmol/L (22-30); Chloride 95 mmol/L (98-107); Estimated Creatinine Clearance 13 ml/min; Glucose 86 mg/dl (70-99); Potassium 4.4 mmol/L (3.5-5.1); Sodium 132 mmol/L (135-145); eGFR 10.15
[2024-05-30 07:40] VITALS: BP 143/57
[2024-05-30] MEDS: ASPIR LOW (ENTERIC COATED) 81 MG PO (08:13)
[2024-05-30] MEDS: PROGRAF 2 MG PO (08:13)
[2024-05-30] MEDS: MAG-TAB SR 84 MG PO ×2 (08:13→21:32)
[2024-05-30] MEDS: ULORIC 40 MG PO (08:13)
[2024-05-30] MEDS: DELTASONE 20 MG PO (08:15)
[2024-05-30] MEDS: LOPRESSOR 25 MG PO (08:15)
[2024-05-30] MEDS: HEPARIN 5000 UNITS SC (08:20)
--- NOTE | 2024-05-30 14:57 | W.PN.HOSP.TC ---
Today's Communication/Plan
-
Patient requesting more sodium and potassium in his diet. Nephrology, please review if request is possible.
Assessment / Plan
Assessment / Plan
73-year-old male with PMH of:
GERD,
essential HTN,
HLD,
ESRD on dialysis,
ADHD,
neuropathy
presented 2/2 AV fistula dysfunction, hence unable to continue with outpatient hemodialysis.
A/P:
1. Thrombosis/pseudoaneurysm of left upper arm AV fistula
Vascular recommended to not use fistula for 2 weeks to allow hematoma to reabsorb
s/p Tunneled dialysis placement by IR 05/26/2024
Further Management per surgical team
Ready to be discharged when appropriate bed found
2. ESRD on dialysis MWF
Nephrology on board for HD need
Prograf and prednisone continued
Ready to be discharged when appropriate bed found
3. Essential Hypertension - stable, Continue metoprolol
4. Insomnia - chronic, continue melatonin
5. Hyperlipidemia - Chronic - continue statin
6. Gout - chronic - continue Febuxostat
7. neuropathy - chronic - Cont gabapentin
FULL CODE
DVT ppx: SC heparin
Dispo: Pt requesting a different NH. CM on board to facilitate
Anticipated Discharge: 24 - 48 hours
Subjective/Interval History
-
Date of Service: May 30, 2024
Feels well, wants sodium and potassium restrictions liberated.
Objective Data
-
Labs:
Laboratory Results
05/30/24
06:29
Sodium 132 L
Potassium 4.4
Chloride 95 L
Carbon Dioxide 30
BUN 56 H
Creatinine 5.5 H*
Glucose 86
Calcium 8.2 L
Vital Signs:
Vital Signs
Temp Pulse Resp BP Pulse Ox
98.0 F 65 16 143/57 98
05/30/24 07:40 05/30/24 08:15 05/30/24 07:40 05/30/24 08:15 05/30/24 08:11
I&O
05/29/24 05/30/24 05/31/24
05:59 06:59 06:59
Intake Total
Output Total
Balance
Review of Systems
-
History Source: Patient
All other systems: Reviewed and negative
Physical Exam
-
General: Well Developed, Well Nourished, No Apparent Distress and Comfortable
HEENT: Normocephalic, Atraumatic, Moist Mucous Membranes, Nose Appears Normal and Ears Appear Normal
Respiratory: Clear to Auscultation and Decreased Breath Sounds
Cardiac: Regular Rhythm, S1/S2 and Murmur
GI: Soft, Nontender and Nondistended
Musculoskeletal: No Clubbing and No Cyanosis
Skin: Warm and Dry
Neuro: Awake, Alert and Oriented
Psych: Calm
Data Reviewed
-
Labs: Labs Reviewed by me
[2024-05-30 15:35] VITALS: BP 150/63
--- NOTE | 2024-05-30 15:43 | W.PN.NEPH.PH ---
Today's Communication / Plan
-
HD tomorrow
Assessment/Plan
-
Impression:
ESRD MWF ([facility] ?)
Left upper extremity AV fistula with infiltration and pseudoaneurysm
Hypertension
History of failed renal transplant from 2021
Plan:
HD tomorrow
AVF still resting, CVC functioning
UF as tolerates as he still has edema
renal diet and FR
-
-
Date of Service: May 30, 2024
CC / HPI / ROS
-
Chief Complaint:
ESRD, failed KTP
History of Present Illness:
wt si down
no fever
BP stable
sodoum 132
Review of Systems:
no cp or sob at rest
no n/v
Labs
-
Labs:
WBC 8.1 10^3/uL (4.8-10.8) 05/26/24 15:10
RBC 3.07 10^6/uL (4.70-6.10) L 05/26/24 15:10
Hgb 9.6 g/dL (13.0-18.0) L 05/27/24 07:48
Hct 31.1 % (39.0-52.0) L 05/27/24 07:48
Plt Count 230 10^3/uL (130-400) 05/26/24 15:10
Sodium 132 mmol/L (135-145) L 05/30/24 06:29
Potassium 4.4 mmol/L (3.5-5.1) 05/30/24 06:29
Chloride 95 mmol/L (98-107) L 05/30/24 06:29
Carbon Dioxide 30 mmol/L (22-30) 05/30/24 06:29
BUN 56 mg/dl (9-20) H 05/30/24 06:29
Creatinine 5.5 mg/dL (0.7-1.3) H* 05/30/24 06:29
eGFR 10.15 05/30/24 06:29
Glucose 86 mg/dl (70-99) 05/30/24 06:29
Calcium 8.2 mg/dl (8.4-10.2) L 05/30/24 06:29
Albumin 2.2 g/dl (3.5-5.0) L 05/26/24 15:10
Physical Exam
-
Vital Signs:
Vital Signs
Temp Pulse Resp BP Pulse Ox
98.0 F 65 16 143/57 98
05/30/24 07:40 05/30/24 08:15 05/30/24 07:40 05/30/24 08:15 05/30/24 08:11
Cardiovascular:: Regular rate and rhythm
Respiratory:: Bilateral: CTA
Lung Excursion:: Normal
Abdomen:: Nontender and Soft
Bowel Sounds:: Normal
Extremity Edema:: +2: Bilateral:
Jacob Catheter: No
Other Findings::
left UE AVF +thrill
[2024-05-30] MEDS: HEPARIN SC (20:57)
[2024-05-30] MEDS: LOPRESSOR PO (20:57)
[2024-05-30] MEDS: LIPITOR 40 MG PO (21:32)
[2024-05-30] MEDS: MELATONIN 3 MG PO (21:32)
[2024-05-30] MEDS: NEURONTIN 100 MG PO (21:32)
[2024-05-30 23:32] VITALS: BP 139/54
[2024-05-31 06:00] VITALS: BMI 23.8
[2024-05-31 07:45] VITALS: BP 154/59
[2024-05-31] MEDS: ULORIC 40 MG PO (08:53)
[2024-05-31] MEDS: PROGRAF 2 MG PO (08:53)
[2024-05-31] MEDS: DELTASONE 20 MG PO (08:53)
[2024-05-31] MEDS: MAG-TAB SR 84 MG PO ×2 (08:53→22:40)
[2024-05-31] MEDS: ASPIR LOW (ENTERIC COATED) 81 MG PO (08:53)
[2024-05-31] MEDS: LOPRESSOR PO (08:53)
[2024-05-31] MEDS: HEPARIN 5000 UNITS SC (08:54)
[2024-05-31 13:03] LABS: Hematocrit 28.4 % (39.0-52.0); Hemoglobin 8.8 g/dL (13.0-18.0); Mean Platelet Volume 9.4 fL (7.4-10.4); Platelet Count 207 10^3/uL (130-400); Red Blood Cell Count 2.84 10^6/uL (4.70-6.10); Red Cell Dist. Width 17.2 % (11.5-14.5); White Blood Cell Count 7.2 10^3/uL (4.8-10.8)
[2024-05-31 13:20] LABS: Blood Urea Nitrogen 86 mg/dl (9-20); Calcium 7.9 mg/dl (8.4-10.2); Carbon Dioxide 29 mmol/L (22-30); Chloride 94 mmol/L (98-107); Estimated Creatinine Clearance 10 ml/min; Glucose 164 mg/dl (70-99); Potassium 4.8 mmol/L (3.5-5.1); Sodium 128 mmol/L (135-145); eGFR 8.01
--- NOTE | 2024-05-31 13:35 | W.PN.NEPH.HD ---
Assessment
-
Seen on HD. no complaints. VSS, access ok
dc planning
Progress Note - Hemodialysis
-
Date of Service: May 31, 2024
Duration: 45 minutes and 3 hours
Potassium Bath: 2
Calcium Bath: 2.5
Opti-Dialyzer: 160
Ultrafiltration: Other (4kg)
Blood Flow: 400
Dialysate Flow: 600
Heparin: no
EPO: 4000 units
[2024-05-31] MEDS: RETACRIT 4000 UNITS IV (13:59)
--- NOTE | 2024-05-31 14:50 | CM ---
Reviewed the chart notes and spoke with the patient at the bedside on HD. The patient is now adamant about discharging to home with outpatient HD at [facility]. HD worksheet and clinicals faxed to [facility]. CM questioned the patient on his
plans for transportation to HD. Per patient, his son, ex-, or [id number] will provide. CM continues to be available to patient/family and is monitoring medical plan for needs at discharge.
Plan: Discharge plans now seem home with outpatient HD pending acceptance by [facility].
--- NOTE | 2024-05-31 14:51 | W.PN.HOSP.TC ---
Today's Communication/Plan
-
Assessment / Plan
Assessment / Plan
Gen-AAOx3, NAD
HEENT-NC, AT, anicteric, clear oral mm
Neck-supple
CV-reg, no M, +S1/S2
Lungs-clear B/L
Abd-soft, NT, ND
Musculoskeletal-no edema, no deformity
Skin-warm and dry, right chest PermCath
Neuro-grossly non-focal
Psych-calm, cooperative
73-year-old male with PMH of:
GERD,
essential HTN,
HLD,
ESRD on dialysis,
ADHD,
neuropathy
presented 2/2 AV fistula dysfunction, hence unable to continue with outpatient hemodialysis.
A/P:
1. Thrombosis/pseudoaneurysm of left upper arm AV fistula
Vascular recommended to not use fistula for 2 weeks to allow hematoma to reabsorb
s/p Tunneled dialysis placement by IR 05/26/2024
Further Management per surgical team
Ready to be discharged, patient does not want SNF placement preferring home with outpatient therapy
2. ESRD on dialysis MWF
Nephrology on board for HD need
Prograf and prednisone continued
-Needs outpatient dialysis chair arranged
3. Essential Hypertension - stable, Continue metoprolol
4. Insomnia - chronic, continue melatonin
5. Hyperlipidemia - Chronic - continue statin
6. Gout - chronic - continue Febuxostat
7. neuropathy - chronic - Cont gabapentin
FULL CODE
DVT ppx: SC heparin
Dispo: Pt requesting a different NH. CM on board to facilitate
Anticipated Discharge: 24 - 48 hours
Subjective/Interval History
-
Date of Service: May 31, 2024
Patient was seen and examined at bedside this morning. Feeling well. Does not want SNF placement. Wants to go home with outpatient physical therapy. Will need outpatient dialysis chair arranged.
Objective Data
-
Labs:
Laboratory Results
05/31/24
12:38
WBC 7.2
Hgb 8.8 L
Hct 28.4 L
Plt Count 207
Sodium 128 L
Potassium 4.8
Chloride 94 L
Carbon Dioxide 29
BUN 86 H
Creatinine 6.7 H*
Glucose 164 H
Calcium 7.9 L
Vital Signs:
Vital Signs
Temp Pulse Resp BP Pulse Ox
97.7 F 51 16 154/59 99
05/31/24 07:45 05/31/24 08:53 05/31/24 07:45 05/31/24 08:53 05/31/24 07:45
I&O
05/30/24 05/31/24 06/01/24
06:59 06:59 06:59
Intake Total 1140 / 1140
Output Total 200 / 200
Balance 940 / 940
Review of Systems
-
History Source: Patient
All other systems: Reviewed and negative
Physical Exam
-
General: No Apparent Distress
[2024-05-31 15:00] VITALS: BP 118/47
[2024-05-31] MEDS: LIPITOR 40 MG PO (22:40)
[2024-05-31] MEDS: NEURONTIN 100 MG PO (22:40)
[2024-05-31] MEDS: MELATONIN 3 MG PO (22:40)
[2024-05-31] MEDS: HEPARIN SC (23:13)
[2024-05-31] MEDS: LOPRESSOR 25 MG PO (23:23)
[2024-06-01 06:33] VITALS: BMI 23.4
[2024-06-01 07:48] VITALS: BP 95/49
[2024-06-01] MEDS: DELTASONE 20 MG PO (08:40)
[2024-06-01] MEDS: ULORIC 40 MG PO (08:41)
[2024-06-01] MEDS: ASPIR LOW (ENTERIC COATED) 81 MG PO (08:41)
[2024-06-01] MEDS: LOPRESSOR PO ×2 (08:41→20:50)
[2024-06-01] MEDS: MAG-TAB SR 84 MG PO ×2 (08:41→20:49)
[2024-06-01] MEDS: PROGRAF 2 MG PO (08:42)
[2024-06-01] MEDS: HEPARIN SC (08:49)
--- NOTE | 2024-06-01 10:14 | PTCARENOTE ---
BP this AM was 95/49, Lopressor held per protocol, made aware. No new orders at this time.
--- NOTE | 2024-06-01 11:04 | CM ---
Addendum entered by Esha Hampton RN 06/01/24 16:22:
Received call from Sheryl with [employer]. Patient's chair time is @ 5:45a.m. Waiting on confirmation sheet. [facility] application provided to the patient with explanation that the earliest they start is 6:00a.m. M-F. Patient continues to
insist that he can manage transportation. When asked who will provide transportation, he states 'my younger son and his are going to have to step up and help'. CM expressed her concerns that this does not sound like a solid plan. Patient
stated 'you people need to take it down a notch'.
Plan: HD -Sat at [facility]. Awaiting confirmation form.
Addendum entered by Esha Hampton RN 06/01/24 11:10:
CM spoke with the patient at the bedside who reports family will provide transportation to HD. left voice message for patient's ex-spouse Chelsea to confirm that family will be providing transportation.
Original Note:
CM left voice message for Sheryl with [employer] ([phone], ext [phone]) regarding referral that was faxed yesterday. CM continues to be available to patient/family and is monitoring medical plan for needs at discharge.
Plan: Discharge to home with outpatient HD.
--- NOTE | 2024-06-01 12:18 | W.PN.NEPH.PH ---
Today's Communication / Plan
-
HD tomorrow
Assessment/Plan
-
Impression:
ESRD MWF ([facility] ?)
Left upper extremity AV fistula with infiltration and pseudoaneurysm
Hypertension
History of failed renal transplant from 2021
Plan:
HD tomorrow
AVF still resting, CVC functioning
renal diet and FR
I told him he could not leave until HD arrangements made. He did not care.
-
-
Date of Service: June 01, 2024
CC / HPI / ROS
-
Chief Complaint:
ESRD, failed KTP
History of Present Illness:
tolerated HD yesterday
no fever
BP stable
Review of Systems:
no cp or sob at rest
no n/v
says he is leaving tomorrow no matter what
Labs
-
Labs:
WBC 7.2 10^3/uL (4.8-10.8) 05/31/24 12:38
RBC 2.84 10^6/uL (4.70-6.10) L 05/31/24 12:38
Hgb 8.8 g/dL (13.0-18.0) L 05/31/24 12:38
Hct 28.4 % (39.0-52.0) L 05/31/24 12:38
Plt Count 207 10^3/uL (130-400) 05/31/24 12:38
Sodium 128 mmol/L (135-145) L 05/31/24 12:38
Potassium 4.8 mmol/L (3.5-5.1) 05/31/24 12:38
Chloride 94 mmol/L (98-107) L 05/31/24 12:38
Carbon Dioxide 29 mmol/L (22-30) 05/31/24 12:38
BUN 86 mg/dl (9-20) H 05/31/24 12:38
Creatinine 6.7 mg/dL (0.7-1.3) H* 05/31/24 12:38
eGFR 8.01 05/31/24 12:38
Glucose 164 mg/dl (70-99) H 05/31/24 12:38
Calcium 7.9 mg/dl (8.4-10.2) L 05/31/24 12:38
Albumin 2.2 g/dl (3.5-5.0) L 05/26/24 15:10
Physical Exam
-
Vital Signs:
Vital Signs
Temp Pulse Resp BP Pulse Ox
97.7 F 62 17 95/49 93
06/01/24 07:48 06/01/24 07:48 06/01/24 07:48 06/01/24 08:41 06/01/24 11:57
Cardiovascular:: Regular rate and rhythm
Respiratory:: Bilateral: Coarse
Lung Excursion:: Normal
Abdomen:: Nontender and Soft
Bowel Sounds:: Normal
Extremity Edema:: +3: Bilateral:
[2024-06-01 12:37] VITALS: BP 144/70; PULSE 63; O2SAT 99
--- NOTE | 2024-06-01 14:14 | W.PN.HOSP.TC ---
Today's Communication/Plan
-
Assessment / Plan
Assessment / Plan
Gen-AAOx3, NAD
HEENT-NC, AT, anicteric, clear oral mm
Neck-supple
CV-reg, no M, +S1/S2
Lungs-clear B/L
Abd-soft, NT, ND
Musculoskeletal-no edema, no deformity
Skin-warm and dry, right chest PermCath
Neuro-grossly non-focal
Psych-calm, cooperative
73-year-old male with PMH of:
GERD,
essential HTN,
HLD,
ESRD on dialysis,
ADHD,
neuropathy
presented 2/2 AV fistula dysfunction, hence unable to continue with outpatient hemodialysis.
A/P:
1. Thrombosis/pseudoaneurysm of left upper arm AV fistula
Vascular recommended to not use fistula for 2 weeks to allow hematoma to reabsorb
s/p Tunneled dialysis placement by IR 05/26/2024
Further Management per surgical team
Ready to be discharged, patient does not want SNF placement preferring home with outpatient dialysis which is being arranged
2. ESRD on dialysis MWF
Nephrology on board for HD need
Prograf and prednisone continued
-Needs outpatient dialysis chair arranged
3. Essential Hypertension - stable, Continue metoprolol
4. Insomnia - chronic, continue melatonin
5. Hyperlipidemia - Chronic - continue statin
6. Gout - chronic - continue Febuxostat
7. neuropathy - chronic - Cont gabapentin
FULL CODE
DVT ppx: SC heparin
Dispo: Pt requesting a different NH. CM on board to facilitate
Anticipated Discharge: 24 - 48 hours
Subjective/Interval History
-
Date of Service: June 01, 2024
Patient seen and examined at bedside this morning. Resting comfortably. Awaiting set up of outpatient dialysis.
Objective Data
-
Vital Signs:
Vital Signs
Temp Pulse Resp BP Pulse Ox
97.7 F 62 17 95/49 93
06/01/24 07:48 06/01/24 07:48 06/01/24 07:48 06/01/24 08:41 06/01/24 11:57
I&O
05/31/24 06/01/24 06/02/24
06:59 06:59 06:59
Intake Total 1140 / 1140 600 / 600 420 / 420
Output Total 200 / 200 0 / 0
Balance 940 / 940 600 / 600 420 / 420
Review of Systems
-
History Source: Patient
All other systems: Reviewed and negative
Physical Exam
-
General: No Apparent Distress
[2024-06-01] MEDS: TYLENOL 650 MG PO (14:42)
[2024-06-01 15:26] VITALS: BP 130/51
[2024-06-01] MEDS: HEPARIN 5000 UNITS SC (20:49)
[2024-06-01] MEDS: MIRALAX 17 GRAMS PO (20:56)
[2024-06-01] MEDS: LIPITOR 40 MG PO (21:38)
[2024-06-01] MEDS: NEURONTIN 100 MG PO (21:39)
[2024-06-01] MEDS: MELATONIN 3 MG PO (21:39)
[2024-06-01 23:19] VITALS: BP 146/56
[2024-06-02 06:00] VITALS: BMI 23.9
[2024-06-02 07:40] VITALS: BP 156/67
[2024-06-02] MEDS: DELTASONE 20 MG PO (08:28)
[2024-06-02] MEDS: PROGRAF 2 MG PO (08:28)
[2024-06-02] MEDS: MAG-TAB SR 84 MG PO ×2 (08:28→20:21)
[2024-06-02] MEDS: ULORIC 40 MG PO (08:28)
[2024-06-02] MEDS: LOPRESSOR PO (08:28)
[2024-06-02] MEDS: ASPIR LOW (ENTERIC COATED) 81 MG PO (08:28)
[2024-06-02] MEDS: HEPARIN 5000 UNITS SC (08:28)
--- NOTE | 2024-06-02 09:12 | WOUNDNOTE ---
WOC RN note: Javier Portillo Re: recommend VN if patient goes home. He has a coccyx pressure injury.
--- NOTE | 2024-06-02 11:25 | CM ---
Addendum entered by Gala Portillo 06/02/24 15:01:
Spoke with Fito at [facility] and stated they have a chair time now for [id number] at 6:45pm - CM called [facility] and left message for the confirmation of this.
CM called [facility] and they do not transport on Friday's - they cannot start until next week - they will have Anyi call CM back.
Called patient son Johnson who stated he cannot transport patient to dialysis. had let message with Chelsea ex-
Original Note:
Patient seen at bedside.
Await confirmation for OP dialysis from [facility]
CM continues to confirm transportation for patient to and from dialysis
tt from [facility] rec VN as patient with wound on coccyx
Prefers [facility] - notified liaision - referral placed in careport
PLAN: Home with [facility], HD -Sat at [facility]. Awaiting confirmation form.
[2024-06-02] MEDS: TYLENOL 650 MG PO (11:35)
--- NOTE | 2024-06-02 12:06 | VNURNOTE ---
Home Health Liaison met with patient at bedside to discuss [facility] nurse/therapy, visits, schedule and homebound status. Patient refusing to return to [facility]. He has also been to [facility]. He wants to go home to 'an empty house.' He does
not want [facility] to contact his ex Chelsea. Patient stated he no longer has a cell phone but the previous # was [phone]. He denied having a landline. Explained to patient that VN needs to be able to contact him or someone prior to visits to
set up time. He gave [facility] permission to contact his son Johnson Bhat at [phone]. Explained to patient there are concerns for him to safely be able to care for himself at home. Explained to pt that VN is short term, intermittent,
skilled care. Patient is aware that [facility] will contact them for start of care in 1-2 days after discharge from . Patient seems willing to investigate private caregivers/companions. He wanted someone at the hospital to set that up for him. This
author explained how to dial out and that pt needs to choose a few and reach out to them to ask about fees, start date, etc. Liaison explained this several times as pt expected it to be done for him. Patient is agreeable to [facility] and understands
that visits at home will be 2-3 x per week to assess and teach medical management. [facility] liaison confirmed with [facility] that PT can provide pt a RW upon DC. VN referral completed in Care Port.
[2024-06-02] MEDS: RETACRIT 4000 UNITS IV (12:57)
[2024-06-02] MEDS: SENOKOT-S 1 TABLET PO (13:05)
[2024-06-02 13:17] LABS: Hemoglobin 9.8 g/dL (13.0-18.0)
[2024-06-02 13:26] LABS: Carbon Dioxide 28 mmol/L (22-30); Chloride 92 mmol/L (98-107); Potassium 4.7 mmol/L (3.5-5.1); Sodium 128 mmol/L (135-145)
--- NOTE | 2024-06-02 14:29 | W.PN.NEPH.HD ---
Assessment
-
pt seen during HD
vitals stable
CVC functions fine
await HD unit confirmation, likely TTS at [facility]
Progress Note - Hemodialysis
-
Date of Service: June 02, 2024
Duration: 45 minutes and 3 hours
Potassium Bath: 2
Calcium Bath: 2.5
Opti-Dialyzer: 160
Ultrafiltration: Other (3.5kg)
Blood Flow: 400
Dialysate Flow: 600
Heparin: no
EPO: 4000
[2024-06-02 15:35] VITALS: BP 125/50
[2024-06-02] MEDS: HEPARIN 4000 UNITS INTRACATH (16:09)
--- NOTE | 2024-06-02 16:28 | W.PN.HOSP.TC ---
Today's Communication/Plan
-
Assessment / Plan
Assessment / Plan
Gen-AAOx3, NAD
HEENT-NC, AT, anicteric, clear oral mm
Neck-supple
CV-reg, no M, +S1/S2
Lungs-clear B/L
Abd-soft, NT, ND
Musculoskeletal-no edema, no deformity
Skin-warm and dry, right chest PermCath
Neuro-grossly non-focal
Psych-calm, cooperative
73-year-old male with PMH of:
GERD,
essential HTN,
HLD,
ESRD on dialysis,
ADHD,
neuropathy
presented 2/2 AV fistula dysfunction, hence unable to continue with outpatient hemodialysis.
A/P:
1. Thrombosis/pseudoaneurysm of left upper arm AV fistula
Vascular recommended to not use fistula for 2 weeks to allow hematoma to reabsorb
s/p Tunneled dialysis placement by IR 05/26/2024
Ready to be discharged, patient does not want SNF placement preferring home with outpatient dialysis which is being arranged
2. ESRD on dialysis MWF
Nephrology on board for HD need
Prograf and prednisone continued
-Needs outpatient dialysis chair arranged, pending confirmation of dialysis chair and transportation
3. Essential Hypertension - stable, Continue metoprolol
4. Insomnia - chronic, continue melatonin
5. Hyperlipidemia - Chronic - continue statin
6. Gout - chronic - continue Febuxostat
7. neuropathy - chronic - Cont gabapentin
FULL CODE
DVT ppx: SC heparin
Dispo: Pending finalization of outpatient dialysis chair arrangements
Anticipated Discharge: 24 - 48 hours
Subjective/Interval History
-
Date of Service: June 02, 2024
Patient was seen and examined at bedside. Receiving dialysis in his room. Awaiting finalization of outpatient dialysis arrangements. Medically stable for discharge.
Objective Data
-
Labs:
Laboratory Results
06/02/24
13:04
Hgb 9.8 L
Hct 31.0 L
Sodium 128 L
Potassium 4.7
Chloride 92 L
Carbon Dioxide 28
Vital Signs:
Vital Signs
Temp Pulse Resp BP Pulse Ox
98.3 F 59 15 125/50 98
06/02/24 15:35 06/02/24 15:35 06/02/24 15:35 06/02/24 15:35 06/02/24 15:35
I&O
06/01/24 06/02/24 06/03/24
06:59 06:59 06:59
Intake Total 600 / 600 1360 / 1360
Output Total 0 / 0 90 / 90
Balance 600 / 600 1270 / 1270
Review of Systems
-
History Source: Patient
All other systems: Reviewed and negative
Physical Exam
-
General: No Apparent Distress
[2024-06-02] MEDS: LOPRESSOR 25 MG PO (20:21)
[2024-06-02] MEDS: HEPARIN SC (20:21)
[2024-06-02] MEDS: LIPITOR 40 MG PO (21:42)
[2024-06-02] MEDS: NEURONTIN 100 MG PO (21:43)
[2024-06-02] MEDS: MELATONIN 3 MG PO (21:43)
[2024-06-02] MEDS: MIRALAX 17 GRAMS PO (21:48)
[2024-06-02 23:29] VITALS: BP 135/50
[2024-06-03 06:00] VITALS: BMI 23.5
[2024-06-03 07:45] VITALS: BP 131/57
[2024-06-03] MEDS: DELTASONE 20 MG PO (08:40)
[2024-06-03] MEDS: SENOKOT-S 1 TABLET PO ×2 (08:40→16:06)
[2024-06-03] MEDS: ASPIR LOW (ENTERIC COATED) 81 MG PO (08:40)
[2024-06-03] MEDS: ULORIC 40 MG PO (08:40)
[2024-06-03] MEDS: MAG-TAB SR 84 MG PO ×2 (08:40→19:54)
[2024-06-03] MEDS: PROGRAF 2 MG PO (08:40)
[2024-06-03] MEDS: HEPARIN 5000 UNITS SC (08:43)
[2024-06-03] MEDS: LOPRESSOR PO ×2 (08:43→19:54)
[2024-06-03] MEDS: TYLENOL 650 MG PO (08:49)
--- NOTE | 2024-06-03 13:51 | CM ---
Addendum entered by Esha Hampton RN 06/03/24 15:25:
After speaking with the patient, it was determined that the patient's son is the person who was originally with [facility] due to needing transportation to a methadone clinic. The have the same name and same date, different year. Application for
[facility] was faxed to ([phone]). They also require ID indicating date of prior to being able to complete application. Asked patient if his son would be able to take a picture and text it to him.
Original Note:
Reviewed the chart notes and spoke with the patient's spouse Chelsea via telephone. Per Chelsea, she lives [id number] and the patient's son is not able to assist with transportation due to new baby and working full-time. LIBORIO spoke with [facility]
sales representative livestock. The person (Gaye) who handles the intact is out for the day and I was instructed to call back tomorrow morning. CM provided the information on the patient for review in their system. Received confirmation that the patient's new
start time is 6:45a.m on Friday. Confirmation letter received, given to the patient, and a copy placed on the chart. LIBORIO continues to be available to patient/family and is monitoring medical plan for needs at discharge.
Plan: Discharge to home with outpatient at [facility] and with [facility] services.
[2024-06-03 15:50] VITALS: BP 147/62
--- NOTE | 2024-06-03 17:07 | W.PN.HOSP.TC ---
Today's Communication/Plan
-
Assessment / Plan
Assessment / Plan
Gen-AAOx3, NAD
HEENT-NC, AT, anicteric, clear oral mm
Neck-supple
CV-reg, no M, +S1/S2
Lungs-clear B/L
Abd-soft, NT, ND
Musculoskeletal-no edema, no deformity
Skin-warm and dry, right chest PermCath
Neuro-grossly non-focal
Psych-calm, cooperative
73-year-old male with PMH of:
GERD,
essential HTN,
HLD,
ESRD on dialysis,
ADHD,
neuropathy
presented 2/2 AV fistula dysfunction, hence unable to continue with outpatient hemodialysis.
A/P:
1. Thrombosis/pseudoaneurysm of left upper arm AV fistula
Vascular recommended to not use fistula for 2 weeks to allow hematoma to reabsorb
s/p Tunneled dialysis placement by IR 05/26/2024
Ready to be discharged, patient does not want SNF placement preferring home with outpatient dialysis which is being arranged
2. ESRD on dialysis MWF
Nephrology on board for HD need
Prograf and prednisone continued
-Needs outpatient dialysis chair arranged, pending confirmation of dialysis chair and transportation
3. Essential Hypertension - stable, Continue metoprolol
4. Insomnia - chronic, continue melatonin
5. Hyperlipidemia - Chronic - continue statin
6. Gout - chronic - continue Febuxostat
7. neuropathy - chronic - Cont gabapentin
8. Dark urine-patient reports this has been intermittent and chronic, makes very little urine but sometimes makes a small amount which is very dark, reports that it has been tested previously and noted to be benign, we discussed the importance of
monitoring this and following up in the outpatient setting considering his significant smoking history and subsequent increased risk of bladder cancer, patient agrees with the plan
FULL CODE
DVT ppx: SC heparin
Dispo: Pending finalization of outpatient dialysis chair arrangements
Anticipated Discharge: 24 - 48 hours
Subjective/Interval History
-
Date of Service: June 03, 2024
Patient was seen and examined at bedside. No discomfort. Awaiting finalization of outpatient dialysis arrangements.
Objective Data
-
Vital Signs:
Vital Signs
Temp Pulse Resp BP Pulse Ox
97.9 F 58 17 147/62 98
06/03/24 15:50 06/03/24 15:50 06/03/24 15:50 06/03/24 15:50 06/03/24 15:50
I&O
06/02/24 06/03/24 06/04/24
06:59 06:59 06:59
Intake Total 1360 / 1360 1140 / 1140
Output Total 90 / 90 0 / 0
Balance 1270 / 1270 1140 / 1140
Review of Systems
-
History Source: Patient
All other systems: Reviewed and negative
Physical Exam
-
General: No Apparent Distress
--- NOTE | 2024-06-03 17:29 | W.PN.NEPH.PH ---
Today's Communication / Plan
-
HD friday
Assessment/Plan
-
Impression:
ESRD MWF ([facility] ?)
Left upper extremity AV fistula with infiltration and pseudoaneurysm
Hypertension
History of failed renal transplant from 2021
Plan:
HD on Friday
AVF still resting, CVC functioning
renal diet and FR
he is setting up TTS at [facility]
-
-
Date of Service: June 03, 2024
CC / HPI / ROS
-
Chief Complaint:
ESRD, failed KTP
History of Present Illness:
tolerated HD yesterday
no fever
BP stable
Review of Systems:
no cp or sob at rest
no n/v
Labs
-
Labs:
WBC 7.2 10^3/uL (4.8-10.8) 05/31/24 12:38
RBC 2.84 10^6/uL (4.70-6.10) L 05/31/24 12:38
Hgb 9.8 g/dL (13.0-18.0) L 06/02/24 13:04
Hct 31.0 % (39.0-52.0) L 06/02/24 13:04
Plt Count 207 10^3/uL (130-400) 05/31/24 12:38
Sodium 128 mmol/L (135-145) L 06/02/24 13:04
Potassium 4.7 mmol/L (3.5-5.1) 06/02/24 13:04
Chloride 92 mmol/L (98-107) L 06/02/24 13:04
Carbon Dioxide 28 mmol/L (22-30) 06/02/24 13:04
BUN 86 mg/dl (9-20) H 05/31/24 12:38
Creatinine 6.7 mg/dL (0.7-1.3) H* 05/31/24 12:38
eGFR 8.01 05/31/24 12:38
Glucose 164 mg/dl (70-99) H 05/31/24 12:38
Calcium 7.9 mg/dl (8.4-10.2) L 05/31/24 12:38
Albumin 2.2 g/dl (3.5-5.0) L 05/26/24 15:10
Physical Exam
-
Vital Signs:
Vital Signs
Temp Pulse Resp BP Pulse Ox
97.9 F 58 17 147/62 98
06/03/24 15:50 06/03/24 15:50 06/03/24 15:50 06/03/24 15:50 06/03/24 15:50
Cardiovascular:: Regular rate and rhythm
Respiratory:: Bilateral: CTA
Lung Excursion:: Normal
Abdomen:: Nontender and Soft
Bowel Sounds:: Normal
Extremity Edema:: +2: Bilateral:
Jacob Catheter: No
[2024-06-03] MEDS: HEPARIN SC (19:52)
[2024-06-03] MEDS: MELATONIN 3 MG PO (22:06)
[2024-06-03] MEDS: LIPITOR 40 MG PO (22:06)
[2024-06-03] MEDS: NEURONTIN 100 MG PO (22:06)
[2024-06-03] MEDS: MIRALAX 17 GRAMS PO (22:10)
[2024-06-03 23:16] VITALS: BP 167/68
[2024-06-04 05:52] VITALS: BMI 24.0
[2024-06-04 08:10] VITALS: BP 131/61
[2024-06-04] MEDS: ULORIC 40 MG PO (08:54)
[2024-06-04] MEDS: PROGRAF 2 MG PO (08:54)
[2024-06-04] MEDS: HEPARIN 5000 UNITS SC (08:55)
[2024-06-04] MEDS: ASPIR LOW (ENTERIC COATED) 81 MG PO (08:55)
[2024-06-04] MEDS: DELTASONE 20 MG PO (08:55)
[2024-06-04] MEDS: LOPRESSOR 25 MG PO (08:56)
[2024-06-04] MEDS: MAG-TAB SR 84 MG PO ×2 (08:56→20:47)
--- NOTE | 2024-06-04 09:12 | WOUNDNOTE ---
WOC RN note: Patient's sacral/coccyx deep dermal stage 2 pressure injury improved, much smaller. Patient has a Waffle air overlay and air chair cushion. Appetite very good. He moves self in bed.
--- NOTE | 2024-06-04 09:25 | WOUNDNOTE ---
[facility] RN note: Patient's sacral/coccyx deep dermal stage 2 pressure injury improved, much smaller. Patient has a Waffle air overlay and air chair cushion. Appetite very good. He moves self in bed. +1 LE edema remains. +Palpable pedal pulses. Patient
denies calf pain. Dr. Rock approved knee high Tubigrip as tolerated, remove q hs. Care plan to be updated. t/c SPD and ordered size F Tubigrip. Will follow as needed. Plan is home with VN.
[2024-06-04] MEDS: SENOKOT-S 1 TABLET PO ×2 (10:51→20:56)
--- NOTE | 2024-06-04 12:02 | W.PN.NEPH.PH ---
Today's Communication / Plan
-
HD tomorrow
Assessment/Plan
-
Impression:
ESRD MWF ([facility] ?)
Left upper extremity AV fistula with infiltration and pseudoaneurysm
Hypertension
History of failed renal transplant from 2021
Plan:
HD on Friday
AVF still resting, CVC functioning
renal diet and FR
TTS 1st shift, [place]
-
-
Date of Service: June 04, 2024
CC / HPI / ROS
-
Chief Complaint:
ESRD, failed KTP
History of Present Illness:
tolerated HD yesterday
no fever
BP stable
Review of Systems:
no cp or sob at rest
no n/v
Labs
-
Labs:
WBC 7.2 10^3/uL (4.8-10.8) 05/31/24 12:38
RBC 2.84 10^6/uL (4.70-6.10) L 05/31/24 12:38
Hgb 9.8 g/dL (13.0-18.0) L 06/02/24 13:04
Hct 31.0 % (39.0-52.0) L 06/02/24 13:04
Plt Count 207 10^3/uL (130-400) 05/31/24 12:38
Sodium 128 mmol/L (135-145) L 06/02/24 13:04
Potassium 4.7 mmol/L (3.5-5.1) 06/02/24 13:04
Chloride 92 mmol/L (98-107) L 06/02/24 13:04
Carbon Dioxide 28 mmol/L (22-30) 06/02/24 13:04
BUN 86 mg/dl (9-20) H 05/31/24 12:38
Creatinine 6.7 mg/dL (0.7-1.3) H* 05/31/24 12:38
eGFR 8.01 05/31/24 12:38
Glucose 164 mg/dl (70-99) H 05/31/24 12:38
Calcium 7.9 mg/dl (8.4-10.2) L 05/31/24 12:38
Albumin 2.2 g/dl (3.5-5.0) L 05/26/24 15:10
Physical Exam
-
Vital Signs:
Vital Signs
Temp Pulse Resp BP Pulse Ox
97.9 F 69 18 131/61 99
06/04/24 08:10 06/04/24 08:56 06/04/24 08:10 06/04/24 08:56 06/04/24 08:10
Cardiovascular:: Regular rate and rhythm
Respiratory:: Bilateral: Coarse
Lung Excursion:: Normal
Abdomen:: Nontender and Soft
Bowel Sounds:: Normal
Extremity Edema:: None: Bilateral:
[2024-06-04 15:07] VITALS: BP 131/60; PULSE 58
--- NOTE | 2024-06-04 15:09 | CM ---
Reviewed the chart notes and spoke with the patient at the bedside. Per patient, no one has returned his calls. CM called his ex-spouse Mikala ([phone]) and left a voice message for call back regarding needing photo id for [facility]
application. CM continues to be available to patient/family and is monitoring medical plan for needs at discharge.
Plan: Discharge to home with VN and outpatient HD once transportation has been arranged. Patient will need to schedule transportation on Saturdays as transit does not operate on Saturdays.
[2024-06-04 15:22] VITALS: BP 144/71
--- NOTE | 2024-06-04 17:24 | W.PN.HOSP.TC ---
Today's Communication/Plan
-
Assessment / Plan
Assessment / Plan
Gen-AAOx3, NAD
HEENT-NC, AT, anicteric, clear oral mm
Neck-supple
CV-reg, no M, +S1/S2
Lungs-clear B/L
Abd-soft, NT, ND
Musculoskeletal-no edema, no deformity
Skin-warm and dry, right chest PermCath
Neuro-grossly non-focal
Psych-calm, cooperative
73-year-old male with PMH of:
GERD,
essential HTN,
HLD,
ESRD on dialysis,
ADHD,
neuropathy
presented 2/2 AV fistula dysfunction, hence unable to continue with outpatient hemodialysis.
A/P:
1. Thrombosis/pseudoaneurysm of left upper arm AV fistula
Vascular recommended to not use fistula for 2 weeks to allow hematoma to reabsorb
s/p Tunneled dialysis placement by IR 05/26/2024
Ready to be discharged, patient does not want SNF placement preferring home with outpatient dialysis which is being arranged
2. ESRD on dialysis MWF
Nephrology on board for HD need
Prograf and prednisone continued
-Needs outpatient dialysis chair arranged, pending confirmation of dialysis chair and transportation
3. Essential Hypertension - stable, Continue metoprolol
4. Insomnia - chronic, continue melatonin
5. Hyperlipidemia - Chronic - continue statin
6. Gout - chronic - continue Febuxostat
7. neuropathy - chronic - Cont gabapentin
8. Dark urine-patient reports this has been intermittent and chronic, makes very little urine but sometimes makes a small amount which is very dark, reports that it has been tested previously and noted to be benign, we discussed the importance of
monitoring this and following up in the outpatient setting considering his significant smoking history and subsequent increased risk of bladder cancer, patient agrees with the plan
FULL CODE
DVT ppx: SC heparin
Dispo: Pending finalization of outpatient dialysis chair arrangements
Anticipated Discharge: 24 - 48 hours
Subjective/Interval History
-
Date of Service: June 04, 2024
Patient was seen and examined at bedside. Comfortable, no complaints. Awaiting outpatient dialysis placement.
Objective Data
-
Vital Signs:
Vital Signs
Temp Pulse Resp BP Pulse Ox
98.4 F 61 18 144/71 98
06/04/24 15:22 06/04/24 15:22 06/04/24 15:22 06/04/24 15:22 06/04/24 15:22
I&O
06/03/24 06/04/24 06/05/24
06:59 06:59 06:59
Intake Total 1140 / 1140 1320 / 1320
Output Total 0 / 0 50 / 50
Balance 1140 / 1140 1270 / 1270
Review of Systems
-
History Source: Patient
All other systems: Reviewed and negative
Physical Exam
-
General: No Apparent Distress
[2024-06-04] MEDS: HEPARIN SC ×2 (20:47→20:53)
[2024-06-04] MEDS: LOPRESSOR PO (20:47)
[2024-06-04 20:49] VITALS: BP 161/65
[2024-06-04] MEDS: TYLENOL 650 MG PO (20:56)
[2024-06-04] MEDS: NEURONTIN 100 MG PO (22:06)
[2024-06-04] MEDS: MELATONIN 3 MG PO (22:08)
[2024-06-04] MEDS: LIPITOR 40 MG PO (22:08)
[2024-06-04 23:08] VITALS: BP 143/63
[2024-06-05 06:00] VITALS: BMI 24.4
[2024-06-05 08:10] VITALS: BP 139/55
[2024-06-05 08:43] LABS: Hematocrit 30.9 % (39.0-52.0)
[2024-06-05] MEDS: DELTASONE 20 MG PO (08:49)
[2024-06-05] MEDS: ASPIR LOW (ENTERIC COATED) 81 MG PO (08:49)
[2024-06-05] MEDS: LOPRESSOR 25 MG PO ×2 (08:49→19:42)
[2024-06-05] MEDS: PROGRAF 2 MG PO (08:50)
[2024-06-05] MEDS: ULORIC 40 MG PO (08:51)
[2024-06-05] MEDS: HEPARIN 5000 UNITS SC (08:52)
[2024-06-05] MEDS: MAG-TAB SR 84 MG PO ×2 (08:52→19:42)
[2024-06-05 09:25] LABS: Carbon Dioxide 25 mmol/L (22-30); Chloride 91 mmol/L (98-107); Potassium 4.7 mmol/L (3.5-5.1); Sodium 127 mmol/L (135-145)
--- NOTE | 2024-06-05 14:05 | W.PN.HOSP.TC ---
Today's Communication/Plan
-
Assessment / Plan
Assessment / Plan
Gen-AAOx3, NAD
HEENT-NC, AT, anicteric, clear oral mm
Neck-supple
CV-reg, no M, +S1/S2
Lungs-clear B/L
Abd-soft, NT, ND
Musculoskeletal-no edema, no deformity
Skin-warm and dry, right chest PermCath
Neuro-grossly non-focal
Psych-calm, cooperative
73-year-old male with PMH of:
GERD,
essential HTN,
HLD,
ESRD on dialysis,
ADHD,
neuropathy
presented 2/2 AV fistula dysfunction, hence unable to continue with outpatient hemodialysis.
A/P:
Thrombosis/pseudoaneurysm of left upper arm AV fistula
Vascular recommended to not use fistula for 2 weeks to allow hematoma to reabsorb
s/p Tunneled dialysis placement by IR 05/26/2024
Ready to be discharged, patient does not want SNF placement preferring home with outpatient dialysis which is being arranged
ESRD on dialysis MWF
Nephrology on board for HD need
Prograf and prednisone continued
-Needs outpatient dialysis chair arranged, pending confirmation of dialysis chair and transportation
Hyponatremia:
-Mild, appears chronic
-Monitor
Essential Hypertension - stable, Continue metoprolol
Insomnia - chronic, continue melatonin
Hyperlipidemia - Chronic - continue statin
Gout - chronic - continue Febuxostat
neuropathy - chronic - Cont gabapentin
Dark urine-patient reports this has been intermittent and chronic, makes very little urine but sometimes makes a small amount which is very dark, reports that it has been tested previously and noted to be benign, we discussed the importance of
monitoring this and following up in the outpatient setting considering his significant smoking history and subsequent increased risk of bladder cancer, patient agrees with the plan
FULL CODE
DVT ppx: SC heparin
Dispo: Pending finalization of outpatient dialysis chair arrangements
Anticipated Discharge: 24 - 48 hours
Subjective/Interval History
-
Date of Service: June 05, 2024
Patient was seen and examined at bedside this morning. Resting comfortably. Anxiously awaiting outpatient dialysis arrangements.
Objective Data
-
Labs:
Laboratory Results
06/05/24
08:06
Hgb 10.0 L
Hct 30.9 L
Sodium 127 L
Potassium 4.7
Chloride 91 L
Carbon Dioxide 25
Vital Signs:
Vital Signs
Temp Pulse Resp BP Pulse Ox
97.6 F 61 16 139/55 98
06/05/24 08:10 06/05/24 08:49 06/05/24 08:10 06/05/24 08:49 06/05/24 08:10
I&O
06/04/24 06/05/24 06/06/24
06:59 06:59 06:59
Intake Total 1320 / 1320 1020 / 1020
Output Total 50 / 50 250 / 250
Balance 1270 / 1270 770 / 770
Review of Systems
-
History Source: Patient
All other systems: Reviewed and negative
Physical Exam
-
General: No Apparent Distress
--- NOTE | 2024-06-05 14:09 | W.PN.NEPH.HD ---
Assessment
-
Seen on HD. no new complaints. VSS, access ok
await transportation arrangements
Progress Note - Hemodialysis
-
Date of Service: June 05, 2024
Duration: 45 minutes and 3 hours
Potassium Bath: 2
Calcium Bath: 2.5
Opti-Dialyzer: 160
Ultrafiltration: Other (3.5kg)
Blood Flow: 400
Dialysate Flow: 600
Heparin: 0
EPO: 4000 units
[2024-06-05] MEDS: RETACRIT 4000 UNITS IV (15:30)
[2024-06-05 15:45] VITALS: BP 131/68
[2024-06-05] MEDS: TYLENOL 650 MG PO (16:07)
[2024-06-05] MEDS: HEPARIN 2200 UNITS INTRACATH (17:42)
[2024-06-05] MEDS: HEPARIN SC (19:42)
[2024-06-05 20:19] VITALS: BP 132/73
[2024-06-05] MEDS: MELATONIN 3 MG PO (22:03)
[2024-06-05] MEDS: NEURONTIN 100 MG PO (22:03)
[2024-06-05] MEDS: LIPITOR 40 MG PO (22:03)
[2024-06-05 23:37] VITALS: BP 133/63
[2024-06-06 06:00] VITALS: BMI 23.8
[2024-06-06 08:05] VITALS: BP 132/52
[2024-06-06] MEDS: DELTASONE 20 MG PO (08:40)
[2024-06-06] MEDS: LOPRESSOR 25 MG PO (08:40)
[2024-06-06] MEDS: ULORIC 40 MG PO (08:41)
[2024-06-06] MEDS: ASPIR LOW (ENTERIC COATED) 81 MG PO (08:41)
[2024-06-06] MEDS: MAG-TAB SR 84 MG PO ×2 (08:41→21:42)
[2024-06-06] MEDS: HEPARIN 5000 UNITS SC (08:41)
[2024-06-06] MEDS: PROGRAF 2 MG PO (08:41)
--- NOTE | 2024-06-06 09:37 | W.PN.NEPH.PH ---
Today's Communication / Plan
-
await transportation arrangements
Assessment/Plan
-
Impression:
ESRD MWF ([facility] ?)
Left upper extremity AV fistula with infiltration and pseudoaneurysm
Hypertension
History of failed renal transplant from 2021
Plan:
HD friday
AVF still resting, CVC functioning
renal diet and FR
TTS 1st shift, [place]
await transportation arrangements
-
-
Date of Service: June 06, 2024
CC / HPI / ROS
-
Chief Complaint:
ESRD, failed KTP
History of Present Illness:
tolerated HD yesterday
no fever
BP stable
Review of Systems:
no cp or sob at rest
no n/v
Labs
-
Labs:
WBC 7.2 10^3/uL (4.8-10.8) 05/31/24 12:38
RBC 2.84 10^6/uL (4.70-6.10) L 05/31/24 12:38
Hgb 10.0 g/dL (13.0-18.0) L 06/05/24 08:06
Hct 30.9 % (39.0-52.0) L 06/05/24 08:06
Plt Count 207 10^3/uL (130-400) 05/31/24 12:38
Sodium 127 mmol/L (135-145) L 06/05/24 08:06
Potassium 4.7 mmol/L (3.5-5.1) 06/05/24 08:06
Chloride 91 mmol/L (98-107) L 06/05/24 08:06
Carbon Dioxide 25 mmol/L (22-30) 06/05/24 08:06
BUN 86 mg/dl (9-20) H 05/31/24 12:38
Creatinine 6.7 mg/dL (0.7-1.3) H* 05/31/24 12:38
eGFR 8.01 05/31/24 12:38
Glucose 164 mg/dl (70-99) H 05/31/24 12:38
Calcium 7.9 mg/dl (8.4-10.2) L 05/31/24 12:38
Albumin 2.2 g/dl (3.5-5.0) L 05/26/24 15:10
Physical Exam
-
Vital Signs:
Vital Signs
Temp Pulse Resp BP Pulse Ox
98.3 F 61 18 132/52 99
06/06/24 08:05 06/06/24 08:40 06/06/24 08:05 06/06/24 08:40 06/06/24 08:05
Cardiovascular:: Regular rate and rhythm
Respiratory:: Bilateral: Coarse
Lung Excursion:: Normal
Abdomen:: Nontender and Soft
Bowel Sounds:: Normal
Extremity Edema:: +2: Bilateral:
[2024-06-06 15:53] VITALS: BP 136/58
--- NOTE | 2024-06-06 16:02 | CM ---
Reviewed the chart notes and spoke with the patient at the bedside. IMM reviewed. Per patient, his spouse (Chelsea) is to bring photo ID tomorrow evening and have unit aide tech fax to [facility]. Fax sheet completed and application form
attached in patient's room. Per patient, Chelsea will take him this week to HD with hopes of BCT being activated for next week. Per patient, Chelsea will take patient on Saturdays to HD until a chair time can be changed to MWF at [facility]
[place]. continues to be available to patient/family and is monitoring medical plan for needs at discharge.
Plan: Discharge to home with outpatient HD set. Initial start date is 08 June 2024, at 645am.
--- NOTE | 2024-06-06 18:57 | W.PN.HOSP.TC ---
Today's Communication/Plan
-
Assessment / Plan
Assessment / Plan
Gen-AAOx3, NAD
HEENT-NC, AT, anicteric, clear oral mm
Neck-supple
CV-reg, no M, +S1/S2
Lungs-clear B/L
Abd-soft, NT, ND
Musculoskeletal-no edema, no deformity
Skin-warm and dry, right chest PermCath
Neuro-grossly non-focal
Psych-calm, cooperative
73-year-old male with PMH of:
GERD,
essential HTN,
HLD,
ESRD on dialysis,
ADHD,
neuropathy
presented 2/2 AV fistula dysfunction, hence unable to continue with outpatient hemodialysis.
A/P:
Thrombosis/pseudoaneurysm of left upper arm AV fistula
Vascular recommended to not use fistula for 2 weeks to allow hematoma to reabsorb
s/p Tunneled dialysis placement by IR 05/26/2024
Ready to be discharged, patient does not want SNF placement preferring home with outpatient dialysis which is being arranged
ESRD on dialysis MWF
Nephrology on board for HD need
Prograf and prednisone continued
-Needs outpatient dialysis chair arranged, pending confirmation of dialysis chair and transportation, hopeful for DC 06/07
Hyponatremia:
-Mild, appears chronic
-Monitor
Essential Hypertension - stable, Continue metoprolol
Insomnia - chronic, continue melatonin
Hyperlipidemia - Chronic - continue statin
Gout - chronic - continue Febuxostat
neuropathy - chronic - Cont gabapentin
Dark urine-patient reports this has been intermittent and chronic, makes very little urine but sometimes makes a small amount which is very dark, reports that it has been tested previously and noted to be benign, we discussed the importance of
monitoring this and following up in the outpatient setting considering his significant smoking history and subsequent increased risk of bladder cancer, patient agrees with the plan
FULL CODE
DVT ppx: SC heparin
Dispo: Pending finalization of outpatient dialysis chair arrangements
Anticipated Discharge: 24 - 48 hours
Subjective/Interval History
-
Date of Service: June 06, 2024
Patient was seen and examined at bedside. Arrangements for outpatient dialysis are ongoing. Patient currently comfortable with no complaints.
Objective Data
-
Vital Signs:
Vital Signs
Temp Pulse Resp BP Pulse Ox
98.5 F 56 18 136/58 95
06/06/24 15:53 06/06/24 15:53 06/06/24 15:53 06/06/24 15:53 06/06/24 15:53
I&O
06/05/24 06/06/24 06/07/24
06:59 06:59 06:59
Intake Total 1020 / 1020 920 / 920 480 / 480
Output Total 250 / 250 135 / 135 10 / 10
Balance 770 / 770 785 / 785 470 / 470
Review of Systems
-
History Source: Patient
All other systems: Reviewed and negative
Physical Exam
-
General: No Apparent Distress
[2024-06-06] MEDS: MELATONIN 3 MG PO (21:42)
[2024-06-06] MEDS: HEPARIN SC ×2 (21:42→22:03)
[2024-06-06] MEDS: LIPITOR 40 MG PO (21:42)
[2024-06-06] MEDS: LOPRESSOR PO (21:42)
[2024-06-06] MEDS: NEURONTIN 100 MG PO (21:43)
--- NOTE | 2024-06-06 23:24 | PTCARENOTE ---
Patient refusing 2300 vitals. FINISHED GARMENT INSPECTOR notified.
--- NOTE | 2024-06-07 05:17 | W.PN.HOSP.TC ---
Today's Communication/Plan
-
Discharge
Assessment / Plan
Assessment / Plan
Physical Exam
Gen-no acute distress appears comfortable at this time.
HEENT-NC, AT, anicteric, clear oral mm
Neck-supple
CV-reg, no M, +S1/S2
Lungs-clear B/L
Abd-soft, NT, ND
Musculoskeletal-no edema, no deformity
Skin-warm and dry, right chest PermCath
Neuro: AOx3 conversant coherent
Psych-calm, cooperative
73-year-old male with PMH of:
GERD,
essential HTN,
HLD,
ESRD on dialysis,
ADHD,
neuropathy
presented 2/2 AV fistula dysfunction, hence unable to continue with outpatient hemodialysis.
A/P:
Thrombosis/pseudoaneurysm of left upper arm AV fistula
Vascular recommended to not use fistula for 2 weeks to allow hematoma to reabsorb
s/p Tunneled dialysis placement by IR 05/26/2024
Ready to be discharged, patient does not want SNF placement preferring home with outpatient dialysis which is arranged
ESRD on dialysis MWF
Nephrology on board for HD need
Prograf and prednisone continued
Outpt HD arranged, medically stable for discharge home with home services and outpatient follow up recommendations.
Mild Chronic Hyponatremia
Essential Hypertension - stable, Continue metoprolol
Insomnia - chronic, continue melatonin
Hyperlipidemia - Chronic - continue statin
Gout - chronic - continue Febuxostat
neuropathy - chronic - Cont gabapentin
Dark urine-patient reports this has been intermittent and chronic, makes very little urine but sometimes makes a small amount which is very dark, reports that it has been tested previously and noted to be benign, we discussed the importance of
monitoring this and following up in the outpatient setting considering his significant smoking history and subsequent increased risk of bladder cancer, patient agrees with the plan
FULL CODE
DVT ppx: SC heparin
Total Time Preparing Discharge ___40____ minutes including examination of the patient, summary of the hospital stay, instructions for continuing care to all relevant caregivers; and preparation of discharge records, prescriptions, and referral
forms if necessary.
Anticipated Discharge: Today
Subjective/Interval History
-
Date of Service: June 07, 2024
No acute distress. Overall patient reports feeling well. Eager to go home.
Objective Data
-
Vital Signs:
Vital Signs
Temp Pulse Resp BP Pulse Ox
98.5 F 55 18 146/62 95
06/06/24 15:53 06/06/24 21:42 06/06/24 15:53 06/06/24 21:42 06/06/24 15:53
I&O
06/05/24 06/06/24 06/07/24
06:59 06:59 06:59
Intake Total 1020 / 1020 920 / 920 480 / 480
Output Total 250 / 250 135 / 135 10 / 10
Balance 770 / 770 785 / 785 470 / 470
[2024-06-07 06:00] VITALS: BMI 24.3
[2024-06-07 07:20] VITALS: BP 157/66
[2024-06-07] MEDS: MAG-TAB SR 84 MG PO (08:41)
[2024-06-07] MEDS: DELTASONE 20 MG PO (08:41)
[2024-06-07] MEDS: ULORIC 40 MG PO (08:41)
[2024-06-07] MEDS: LOPRESSOR PO (08:41)
[2024-06-07] MEDS: ASPIR LOW (ENTERIC COATED) 81 MG PO (08:41)
[2024-06-07] MEDS: PROGRAF 2 MG PO (08:41)
[2024-06-07] MEDS: HEPARIN 5000 UNITS SC (08:43)
[2024-06-07] MEDS: SENOKOT-S 1 TABLET PO (08:48)
--- NOTE | 2024-06-07 13:12 | W.PN.NEPH.PH ---
Today's Communication / Plan
-
No acute need for dialysis today dialysis tomorrow outpatient
Assessment/Plan
-
Impression:
ESRD MWF ([facility] ?)
Left upper extremity AV fistula with infiltration and pseudoaneurysm
Hypertension
History of failed renal transplant from 2021
Plan:
HD friday
AVF still resting, CVC functioning
renal diet and FR
TTS 1st shift, [facility]
await transportation arrangements
-
-
Date of Service: June 07, 2024
CC / HPI / ROS
-
Chief Complaint:
ESRD, failed KTP
History of Present Illness:
no fever
BP stable
Review of Systems:
no cp or sob at rest
no n/v
Labs
-
Labs:
WBC 7.2 10^3/uL (4.8-10.8) 05/31/24 12:38
RBC 2.84 10^6/uL (4.70-6.10) L 05/31/24 12:38
Hgb 10.0 g/dL (13.0-18.0) L 06/05/24 08:06
Hct 30.9 % (39.0-52.0) L 06/05/24 08:06
Plt Count 207 10^3/uL (130-400) 05/31/24 12:38
Sodium 127 mmol/L (135-145) L 06/05/24 08:06
Potassium 4.7 mmol/L (3.5-5.1) 06/05/24 08:06
Chloride 91 mmol/L (98-107) L 06/05/24 08:06
Carbon Dioxide 25 mmol/L (22-30) 06/05/24 08:06
BUN 86 mg/dl (9-20) H 05/31/24 12:38
Creatinine 6.7 mg/dL (0.7-1.3) H* 05/31/24 12:38
eGFR 8.01 05/31/24 12:38
Glucose 164 mg/dl (70-99) H 05/31/24 12:38
Calcium 7.9 mg/dl (8.4-10.2) L 05/31/24 12:38
Albumin 2.2 g/dl (3.5-5.0) L 05/26/24 15:10
Physical Exam
-
Vital Signs:
Vital Signs
Temp Pulse Resp BP Pulse Ox
97.8 F 49 16 157/66 99
06/07/24 07:20 06/07/24 08:41 06/07/24 07:20 06/07/24 08:41 06/07/24 07:20
Cardiovascular:: Regular rate and rhythm
Respiratory:: Bilateral: Coarse
Lung Excursion:: Normal
Abdomen:: Nontender and Soft
Bowel Sounds:: Normal
Extremity Edema:: +2: Bilateral:
--- NOTE | 2024-06-07 15:28 | CM ---
CM reviewed pt with Dr Mares- anticipate dc today
Bedside meeting with pt
Plan for home with [facility] and new HD at [facility] starting tomorrow
His spouse will not come in until after hours and will be bringing proof of age with her
Packet bedside to be faxed by business unit manager to [facility]
Zaida/bakery sales clerk aware
Call with [facility] alerting of dc
Plan to start HD tomorrow
Plan for HD SW to follow up with pt regarding [facility] application
stock clerk self service store will fax dc packet to [facility] [phone]
Discharge Disposition- home with [facility] and new HD at [facility]
[2024-06-07 15:36] VITALS: BP 152/61
--- NOTE | 2024-06-07 16:51 | W.DCSUMMARY ---
Discharge Summary
Discharge Data
Date of Admission: 05/26/24
Date of Discharge: 06/07/24
-
Pending Results: No
Discharge Plan
-
Patient Disposition: Home with Home Care
Discharge Diagnosis/Procedures: Thrombosis/pseudoaneurysm of left upper arm AV fistula
Tunneled right Internal Jugular hemodialysis catheter placed 05/26/24
End Stage Renal Disease
Chronic Hyponatremia
Hypertension
Hyperlipidemia
Gout
Neuropathy
Condition: Fair
Diet: Low Cholesterol and 2 Gram Sodium
Additional Diets: Daily 2 gram potassium restriction, Daily Fluid Restriction 40 oz
Activity: As tolerated and With Walker
Driving Restrictions: Not until seen by your Dr
Other Services: PT and OT
Activity Restrictions/Additional Instructions:
Wound Care Instructions
Coccyx/L buttocks ulcer-clean with saline or soap and water, silicone border foam, change every 2 days and as needed for drainage.
Pressure redistributing chair cushion (i.e. Roho, air chair cushion).
Elevate heels off bed with pillow/s.
Frequent turning and repositioning.
Bilateral knee high Tubigrip as tolerated; remove at bedtime; reapply every morning.
Follow up at wound care center call for an appointment.
Please follow up with primary care provider in 1 week of discharge, continue with your routine scheduled dialysis sessions, and keep your appointment with Vascular Surgeon.
Please take your medications as prescribed/recommended and follow up with primary care provider and/or other healthcare provider involved in your care for refills and/or further adjustment to your medication regimen as necessary.
Instructions: How to care for a hemodialysis catheter
Referrals:
Lupe Camilo PA-C [Specified Professional Personl] - 06/25/24 10:30 am
Forrest Mora DO [Family Provider] - in one week
Prescriptions:
Continued
magnesium oxide 400 mg magnesium Tablet
400 mg PO BID
epoetin erika 2,000 unit/mL Solution
1,000 unit SC MOWEFR
acetaminophen [Tylenol] 325 mg Tablet
650 mg PO Q6HPRN PRN (Reason: mild pain)
magnesium hydroxide [Milk of Magnesia] 400 mg/5 mL Suspension
2,400 mg PO DAILYPRN PRN (Reason: if no bm by 3rd day)
bisacodyl [Dulcolax (bisacodyl)] 10 mg Suppository
10 mg KS DAILYPRN PRN (Reason: if no bm aftr mom)
Fleet Enema 19-7 gram/118 mL Enema
118 ml KS DAILYPRN PRN (Reason: if bm aftr dulcalax)
atorvastatin 40 MG tablet
40 mg PO HS Qty: 14 0RF
prednisone 20 mg Tablet
20 mg PO DAILY Qty: 14 0RF
melatonin 3 mg Tablet
3 mg PO HS Qty: 14 0RF
aspirin 81 mg Tablet,Delayed Release (Dr/Ec)
81 mg PO DAILY Qty: 14 0RF
gabapentin 100 mg Capsule
100 mg PO HS Qty: 14 0RF
tacrolimus [Prograf] 1 mg Capsule
2 mg PO DAILY Qty: 14 0RF
metoprolol tartrate 25 mg Tablet
25 mg PO BID Qty: 28 0RF
febuxostat 40 MG tablet
40 mg PO DAILY Qty: 14 0RF
Discharge Orders:
Discharge Patient (As Directed); Ordered 06/07/24
Ordered By: Wilman Mares
Discharge Date and Time
Print Language: TRINIDADIAN
== END 2024-06-07 19:06 | disposition home health service (06) | DRG 314 ==
LOC: 2 NORTH 15:54
PROVIDERS: Internal Medicine; Radiology Vascular & Interventional Radiology; Registered Nurse; Specialist; ADMITTING PHYSICIAN Student in an Organized Health Care Education/Training Program; ATTENDING PHYSICIAN Internal Medicine; CONSULT PHYSICIAN Specialist; EMERGENCY PHYSICIAN Emergency Medicine; FAMILY PHYSICIAN Internal Medicine; OTHER PHYSICIAN Surgery Vascular Surgery
PROC: 02H633Z Insertion of Infusion Device into Right Atrium, Percutaneous Approach (ICD-10-PCS; 2024-05-26)
PROC: 0JH63XZ Insertion of Tunneled Vascular Access Device into Chest Subcutaneous Tissue and Fascia, Percutaneous Approach (ICD-10-PCS; 2024-05-26)
PROC: 5A1D70Z Performance of Urinary Filtration, Intermittent, Less than 6 Hours Per Day (ICD-10-PCS; 2024-05-27)
DX: T82.868A Thrombosis due to vascular prosthetic devices, implants and grafts, initial encounter (principal); L89.153 Pressure ulcer of sacral region, stage 3; N18.6 End stage renal disease; T86.12 Kidney transplant failure; I12.0 Hypertensive chronic kidney disease with stage 5 chronic kidney disease or end stage renal disease; E87.1 Hypo-osmolality and hyponatremia; T82.510A Breakdown (mechanical) of surgically created arteriovenous fistula, initial encounter; D63.1 Anemia in chronic kidney disease; K21.9 Gastro-esophageal reflux disease without esophagitis; G62.9 Polyneuropathy, unspecified; G47.00 Insomnia, unspecified; M10.9 Gout, unspecified; E78.00 Pure hypercholesterolemia, unspecified; F90.9 Attention-deficit hyperactivity disorder, unspecified type; D50.9 Iron deficiency anemia, unspecified; E21.3 Hyperparathyroidism, unspecified; E87.70 Fluid overload, unspecified; Z79.82 Long term (current) use of aspirin; Z79.621 Long term (current) use of calcineurin inhibitor; Z79.52 Long term (current) use of systemic steroids; F41.9 Anxiety disorder, unspecified; Z99.2 Dependence on renal dialysis; Z96.652 Presence of left artificial knee joint; Z87.891 Personal history of nicotine dependence; Z79.899 Other long term (current) drug therapy; Y83.0 Surgical operation with transplant of whole organ as the cause of abnormal reaction of the patient, or of later complication, without mention of misadventure at the time of the procedure; Y83.2 Surgical operation with anastomosis, bypass or graft as the cause of abnormal reaction of the patient, or of later complication, without mention of misadventure at the time of the procedure
CPT/HCPCS: 36558; 76937; 77001; 80048; 80051; 80053; 82962; 85014; 85018; 85025; 85027; 87070; 87340; 90662; 93990; 97116; 97163; 97167; 97530; 99152; 99153; 99284; C1750; G0008; G0257; P9047; Q5106

== ENCOUNTER 2024-06-29 16:56 | Emergency (ER) | payer OTHER, MEDICARE, SELFPAY ==
[2024-06-29 17:06] VITALS: BP 145/80
[2024-06-29 17:27] LABS: % Basophils 3.4 % (0-2); % Eosinophils 17.9 % (0-6); % Immature Granulocytes 0.2 % (0-0.5); % Lymphocytes 24.5 % (20.5-51.1); Absolute Basophils 0.2 10^3/uL (0-0.2); Absolute Eosinophils 0.9 10^3/uL (0-0.7); Absolute Lymphocytes 1.2 10^3/uL (1.2-3.4); Absolute Monocytes 0.6 10^3/uL (0.1-0.6); Absolute Neutrophils 2.1 10^3/uL (1.4-6.5); Hemoglobin 11.3 g/dL (13.0-18.0); Mean Corp Hgb Conc. 33.2 g/dL (33.0-37.0); Mean Corpuscular Hgb 30.3 pg (27.0-31.0); Mean Corpuscular Volume 91.2 fL (80.0-94.0); Mean Platelet Volume 8.4 fL (7.4-10.4); Nucleated Red Blood Cells % 0 % (-); Platelet Count 363 10^3/uL (130-400); Red Blood Cell Count 3.73 10^6/uL (4.70-6.10); Red Cell Dist. Width 15.1 % (11.5-14.5); White Blood Cell Count 5.1 10^3/uL (4.8-10.8)
[2024-06-29 17:38] LABS: ALT (SGPT) 16 U/L (0-50); AST (SGOT) 29 U/L (17-59); Albumin 3.3 g/dl (3.5-5.0); Alkaline Phosphatase 154 U/L (38-126); Blood Urea Nitrogen 21 mg/dl (9-20); Calcium 8.9 mg/dl (8.4-10.2); Carbon Dioxide 33 mmol/L (22-30); Chloride 95 mmol/L (98-107); Glucose 136 mg/dl (70-99); Potassium 3.7 mmol/L (3.5-5.1); Sodium 137 mmol/L (135-145); Total Bilirubin 0.6 mg/dl (0.2-1.3); Total Protein 6.5 g/dl (6.3-8.2); eGFR 18.07
[2024-06-29 19:00] VITALS: BP 124/61
[2024-06-29 20:00] VITALS: BP 126/85
[2024-06-29] MEDS: ELIQUIS 5 MG PO (20:25)
--- NOTE | 2024-06-29 21:14 | ED.GENMED ---
History of Present Illness
General
Chief Complaint: Heart Rate Problem
Source: patient and spouse
Exam Limitations: none
Time Seen by Provider: 06/29/24 18:54
Nursing documentation reviewed up to this point in time: agreed with
History of Present Illness
History of Present Illness:
73-year-old male with history as noted presents to the ER for evaluation of A-fib. Patient was at his normal dialysis and apparently the nurses noted that his heart appeared to be irregular and they were concerned for A-fib. He was referred to the
emergency room. He did receive a full session of dialysis. He says that he is completely asymptomatic�denies any chest pain, dizziness, palpitations, shortness of breath or any other complaints. He denies any known history of A-fib. He says he
saw anime designer for medical screening prior to transplant in the past but does not follow with anyone regularly.
Past History
Past History
ED Past Medical History: GERD, HTN, Hypercholesterolemia, Renal failure and Other (Gout, kidney transplant, ADHD, neuropathy, diverticulitis, colon polyps, alcohol abuse, cognitive deficiency, kidney stones)
ED Past Surgical History: Orthopedic and Other (AV shunt)
Social History
Tobacco: Former smoker
Alcohol: Occasional
Drug: None
Personal:
Living: with family
Employment: Retired
Family History
Family History: Other (Noncontributory)
Review of Systems
Review of Systems
All Other Systems: ROS reviewed and negative except as documented in HPI and ROS
Respiratory: Denies trouble breathing
Cardiac: Denies chest pain or syncope
Musculoskeletal: Denies edema
Neurological: Denies dizzy
Phy Exam
Physical Exam
Physical Exam:
General: Awake, alert, oriented x3; no acute distress
Head: Normocephalic, atraumatic
Eyes: Conjunctiva normal, sclera anicteric
Throat: Airway intact, handling secretions
Neck: Trachea midline, no JVD
Lungs: Clear to auscultation bilaterally, no wheezing, rales, rhonchi
Heart: Regular rate and rhythm, faint systolic murmur
Abd: Soft, non distended, nontender
Neuro: No gross deficits
Extremities: No edema in extremities, warm and well-perfused
Scores
[id number] Score for Afib Stroke Risk
Age in Years (65=0, 65-74=1, >/=75=2): > or = 75
Sex (Female=+1): Male
Congestive Heart Failure History (Yes=+1): No
Hypertension History (Yes=+1): Yes
Stroke/TIA/Thromboembolism History (Yes=+2): No
Vascular Disease History (Yes=+1): Yes
Diabetes Mellitus (Yes=+1): No
Score: 4
Anticoagulation Recommendations: Recommend anticoagulation (as validated in nonvalvular fib)
Heart Failure Risk
Heart Failure Risk Score: Not Applicable
Heart Score for Chest Pain Patients
STEMI patient?: Not applicable
Withdrawal Assessment of Alcohol
Withdrawal Assessment Completed?: Not applicable
Course
Orders/Labs/Results
Orders:
Orders
06/29/24 17:00
EKG [Electrocardiogram (*1)] Urgent
Reason for Study: Atrial Fibrillation
EKG- Treatment ONCE
06/29/24 17:18
Complete Blood Count/With Diff Urgent
Comprehensive Metabolic Panel Urgent
06/29/24 19:47
EKG [Electrocardiogram (*1)] Urgent
Reason for Study: Atrial Fibrillation
EKG- Treatment ONCE
06/29/24 20:19
Apixaban [Eliquis] 5 mg PO ONCE ONE
Abnormal Lab Results
06/29/24
17:18
RBC 3.73 L 10^6/uL
(4.70-6.10)
Hgb 11.3 L g/dL
(13.0-18.0)
Hct 34.0 L %
(39.0-52.0)
RDW 15.1 H %
(11.5-14.5)
Absolute Eos (auto) 0.9 H 10^3/uL
(0-0.7)
Neutrophils % 42.0 L %
(42.2-75.2)
Monocytes % 12.0 H %
(1.7-9.3)
Eosinophils % 17.9 H %
(0-6)
Basophils % 3.4 H %
(0-2)
Chloride 95 L mmol/L
(98-107)
Carbon Dioxide 33 H mmol/L
(22-30)
BUN 21 H mg/dl
(9-20)
Creatinine 3.4 H mg/dL
(0.7-1.3)
Glucose 136 H mg/dl
(70-99)
Alkaline Phosphatase 154 H U/L
(38-126)
Albumin 3.3 L g/dl
(3.5-5.0)
06/29/24 17:18
06/29/24 17:18
Vital Signs
Initial and Last Documented VS:
Initial Vital Signs
Temp Pulse Resp BP Pulse Ox
36.7 C 102 16 145/80 98
06/29/24 17:06 06/29/24 17:06 06/29/24 17:06 06/29/24 17:06 06/29/24 17:06
Last Documented Vital Signs
Temp Pulse Resp BP Pulse Ox
36.7 C 87 20 126/85 96
06/29/24 17:06 06/29/24 20:15 06/29/24 20:15 06/29/24 20:00 06/29/24 20:15
MDM/Problems Addressed
Differential Diagnosis Includes:
Atrial fibrillation
MDM/Problems Addressed:
73-year-old male presents for evaluation of irregular heart rate noted by nursing at his regular dialysis today. He is asymptomatic. His EKG on arrival does confirm atrial fibrillation. By the time of my assessment he had converted back to sinus
rhythm which was confirmed on repeat EKG. Screening labs sent off including a CBC and a CMP which showed no clinically significant abnormality�he has known ESRD. I had a long discussion with patient about diagnosis. Will plan to start on Toprol
and Eliquis. I did discuss Eliquis dosing with cardiology�proceed with 5 mg twice daily. Will discharge with cardiology referral of ER chest pain hotline for expeditious follow-up. Patient very comfortable with this plan. All questions answered.
Chronic conditions affecting care:
ESRD
*Pulse Oximetry
Patient hypoxic: no
*EKG
Interpreted by ED Provider?: Yes
Heart Rate: 108
Rate: tachycardiac
Rhythm: a-fib
[place]: normal axis
Interval: normal interval
QRS Pattern: normal QRS
Ischemia: non-specific ST changes
*Critical Care Note
Total Time (30-74mins, 75-104mins- exclusive of procedures): Not Applicable
Data Reviewed
Review of Other/Old Records Reveals: Labs and Records
Source: patient and spouse
Patient Management
Discussion with other providers: Property Utilization Manager (Discussed with cardiology)
ED Attending Note
-
Portions of this chart may have been created with voice recognition software.� Occasional wrong word or��sound alike� substitutions may have occurred due to the inherent limitations of voice recognition software.
Discharge Plan
Departure
Patient Disposition: Home (Routine Discharge)
Date of Disposition: 06/29/24
Time of Disposition: 20:20
Patient with high blood pressure during this ER visit?: Yes
Discharge Problem:
Atrial fibrillation
Instructions: Atrial Fibrillation (DC)
Prescriptions:
New
metoprolol succinate [Toprol XL] 25 mg tablet extended release 24 hr
25 mg PO DAILY Qty: 30 0RF
Eliquis 5 mg tablet
5 mg PO BID Qty: 60 0RF
No Action
magnesium oxide 400 mg magnesium Tablet
400 mg PO BID
epoetin erika 2,000 unit/mL Solution
1,000 unit SC MOWEFR
acetaminophen [Tylenol] 325 mg Tablet
650 mg PO Q6HPRN PRN (Reason: mild pain)
magnesium hydroxide [Milk of Magnesia] 400 mg/5 mL Suspension
2,400 mg PO DAILYPRN PRN (Reason: if no bm by 3rd day)
bisacodyl [Dulcolax (bisacodyl)] 10 mg Suppository
10 mg [place] DAILYPRN PRN (Reason: if no bm aftr mom)
Fleet Enema 19-7 gram/118 mL Enema
118 ml MA DAILYPRN PRN (Reason: if bm aftr dulcalax)
atorvastatin 40 MG tablet
40 mg PO HS Qty: 14 0RF
prednisone 20 mg Tablet
20 mg PO DAILY Qty: 14 0RF
melatonin 3 mg Tablet
3 mg PO HS Qty: 14 0RF
aspirin 81 mg Tablet,Delayed Release (Dr/Ec)
81 mg PO DAILY Qty: 14 0RF
gabapentin 100 mg Capsule
100 mg PO HS Qty: 14 0RF
tacrolimus [Prograf] 1 mg Capsule
2 mg PO DAILY Qty: 14 0RF
metoprolol tartrate 25 mg Tablet
25 mg PO BID Qty: 28 0RF
febuxostat 40 MG tablet
40 mg PO DAILY Qty: 14 0RF
Referrals:
Ulises Yarbrough MD [Active] - Call in 1-3 days for appt (Cardiology)
Forrest Mora DO [Family Provider] -
Activity Restrictions/Additional Instructions:
Thank you for visiting the Emergency Department at [facility].
1. Please schedule a follow up appointment as directed. Call first thing tomorrow morning to make an appointment.
2. If indicated, please take your medications as instructed and indicated on discharge paperwork.
3. If any of your symptoms do not improve, or persist, or become more severe within 6-12 hours, please return to the emergency department for further care.
4. Please return to the emergency department if you develop a headache, neck pain/stiffness, fever greater than 100.4F, chest pain, shortness of breath, persistent nausea, vomiting, slurred speech, difficulty walking, numbness/tingling, weakness,
signs of infection or any other symptoms that are worrisome to you.
Please call [phone] if you have any questions.
Interventions
Interventions:
*Risk Screen - Suicide Last Done: 06/29/24 17:06
*General Assessment Last Done: 06/29/24 17:06
*Neglect/Abuse Screening Last Done: 06/29/24 17:06
*ED- Fall Risk Assessment Last Done: 06/29/24 17:06
*ED COVID-19 Vaccine History Last Done: 06/29/24 17:06
*Nursing Disposition Last Done: 06/29/24 20:28
ED- Cardiac Assessment Last Done: 06/29/24 18:35
ED- Pulmonary Assessment Last Done: 06/29/24 18:35
Discharge Date and Time
Discharge Date/Time: 06/29/24 20:38
Print Language: BULGARIAN
== END 2024-06-29 20:38 | disposition home or self-care (01) ==
LOC: EMR 16:56
PROVIDERS: Student in an Organized Health Care Education/Training Program; EMERGENCY PHYSICIAN Emergency Medicine; FAMILY PHYSICIAN Internal Medicine
DX: I48.91 Unspecified atrial fibrillation (principal); N18.6 End stage renal disease; I12.0 Hypertensive chronic kidney disease with stage 5 chronic kidney disease or end stage renal disease
CPT/HCPCS: 99284; 80053; 85025; 93005

== ENCOUNTER 2024-11-21 16:39 | Inpatient (IN) | payer MEDICARE, OTHER, SELFPAY ==
[2024-11-21] VITALS (20 sets, daily range): BP systolic 72–130; BP diastolic 21–104; BMI 20.6
--- NOTE | 2024-11-21 14:03 | ED.GENMED ---
History of Present Illness
General
Chief Complaint: Chest Pain
Time Seen by Provider: 11/21/24 14:03
History of Present Illness
History of Present Illness:
FOCUSED PAST MEDICAL HISTORY
- The patient has a history of high blood pressure, hyperlipidemia, anemia, history of alcohol abuse, CKD on HD
REVIEW OF OLD RECORDS
- The patient was seen here in June with new onset atrial fibrillation. He spontaneously converted then and was discharged on Toprol and Eliquis.
Note:
CHIEF COMPLAINT(S)
Chest pain and altered mental status.
HISTORY OF PRESENT ILLNESS
The patient is a 74-year-old male transferred from [facility] for evaluation. He reportedly had chest pain and left arm pain. Upon EMS arrival, the patient was stable and on 4 liters of oxygen. The ER physician noted concerns about a significant
wound on the patients lower back and an apparent abdominal mass. The patient was unable to recall the current month or his age, suggesting potential cognitive impairment. A consideration for a beta-debbie was made due to low blood pressure. The
patient is currently a very limited historian.
I called his ex- who is the only listed family member, Chelsea, and left a message
Paperwork from [facility] indicates that he is 'DNR/DNH'
Paperwork from [facility] does not include use of Eliquis or any other anticoagulation
I called [facility] at [phone] to obtain more information. At lunchtime, he was c/o CP 104/85 HR 136. Leaning off to right side over bed. For this past week, he was placed on oxygen NC at 3lpm. Regarding 'DNH', [facility] said patient and
ex- wanted him to be sent to ED and Dr. Arreguin authorized this.
I did speak to his ex-, Chelsea, at bedside. She identifies herself as the legal power of assistant attorney general and states that the son is no longer really in the picture. He has no other friends to help make decisions. Chelsea indicates that he should remain
DNR but would like him to be hospitalized for further management.
PHYSICAL EXAM
- General: The patient acutely and chronically ill in appearance
- HEENT: Somewhat dry oral mucosa
- Cardiovascular: 2 out of 6 systolic murmur heard diffusely, tachycardic heart rate, regular rhythm, No chest wall tenderness
- Pulmonary: No respiratory distress, breath sounds are clear and equal
- Abdomen: Palpable mass in the right lower quadrant with overlying surgical scar possibly related to a transplanted kidney
- Neurologic: Markedly decreased strength in all extremities,
- Psychiatric: The patient could not name the month or state his age, he is a very limited historian
- Extremities: Markedly decreased strength in the lower extremities
- Skin: Unstageable large sacral wound with some areas of necrosis
DIFFERENTIAL DIAGNOSIS
The Differential Diagnosis includes, in no particular order and is not limited to:
- Myocardial infarction
- Congestive heart failure
- Hypotension
- Urinary tract infection or sepsis
- Abdominal aortic aneurysm
- Cognitive impairment or dementia
- Hypoxia
- Medication side effects
- Neurological event (e.g., stroke)
- Dehydration or electrolyte imbalance
MEDICATION RECONCILIATION
Medication consideration included the potential administration of a beta-debbie for heart rate management.
MEDICAL DECISION MAKING
1. Number and Complexity of Problems Addressed:
Chronic conditions affecting care [not explicitly mentioned in the meat carrier]
- Differential Diagnosis includes:
- Myocardial infarction
- Congestive heart failure
- Hypotension
- Urinary tract infection or sepsis
- Abdominal aortic aneurysm
- Cognitive impairment or dementia
- Hypoxia
- Medication side effects
- Neurological event (e.g., stroke)
- Dehydration or electrolyte imbalance
2. Data: Amount and/or Complexity of Data Reviewed and Analyzed
Category 1:
- Tests and documents reviewed, such as ECG and potential labs were discussed.
Category 3:
- Discussion of management with a potential consideration of beta-debbie for heart rate control was mentioned.
DIAGNOSIS
- Chest Pain, unspecified (ICD-10: R07.9)
- Atrial flutter with RVR
RADIOLOGY
- Chest x-ray shows density at the right base which is new in comparison to x-ray from 2022.
EKG
- Suspect atrial flutter rate of 137
LABS
- White count 19.5, hemoglobin 10.0, 85% neutrophils, BUN 64, creatinine 5.1, troponin 0.02,
UPDATE
-SUMMARY OF ENCOUNTER
The patient, a 74-year-old male, was brought to the emergency department from [facility] with chest pain and altered mental status. The patient was unable to recall the current month or his age, indicating cognitive impairment. Initially, the
patient presented with low blood pressure, which improved slightly with fluid administration. The patient is currently on medication to increase blood pressure. The patients heart rate showed atrial flutter, and medication was administered to slow
the heart rate. Theres a significant concern for infection stemming from a large necrotic wound on the patients lower back, which has a foul odor, alongside elevated white blood cell count and heart rate, suggesting possible sepsis. A chest x-ray
indicated abnormalities, but the etiology (pleural fluid versus pneumonia) was yet to be confirmed. Due to these concerns, antibiotics were initiated. The patient had previously been on dialysis, which was cut short due to low blood pressure, and is
currently receiving oxygen therapy. Given the complexity, hospitalization is being considered.
DISPOSITION
Admit
ASSESSMENT
The patients symptoms and findings suggest possible sepsis secondary to an infected necrotic wound, atrial flutter with rate management issues, and potential pneumonia or fluid overload detected on chest x-ray. Cognitive impairment and hemodynamic
instability are also present.
EMERGENCY TREATMENTS ADMINISTERED
Antibiotics initiated for suspected infection. Medication administered to slow heart rate due to atrial flutter.
MANAGEMENT OF THE PATIENTS CARE WAS DISCUSSED WITH
Discussion about patient care and the decision for hospital admission was held with the patients power of assistant attorney generalChelsea.
INDEPENDENT REVIEW OF LABS AND INTERPRETATION OF TESTS
My independent interpretation of the chest x-ray shows abnormal findings that may indicate pleural fluid or pneumonia, pending radiology confirmation.
PLAN
The patient will be admitted to the hospital for further evaluation and management. Initiate broad-spectrum antibiotics pending culture results. Continue supportive care with oxygen therapy and monitor hemodynamic status closely. Further assessment
of the abdominal mass is necessary once the patient is stable.
FOLLOW-UP INSTRUCTIONS
Hospital admission for continued treatment and assessment.
MEDICATION RECONCILIATION
Patient was on apixaban (Eliquis) previously, but current administration status is unclear. Antibiotics were started in the emergency department.
MEDICAL DECISION MAKING
-Chronic conditions affecting care include cognitive impairment, recurrent low blood pressure, non-healing necrotic wound, and atrial flutter.
-Differential diagnosis includes:
- Myocardial infarction
- Congestive heart failure
- Hypotension
- Urinary tract infection or sepsis
- Abdominal aortic aneurysm
- Cognitive impairment or dementia
- Hypoxia
- Medication side effects
- Neurological event (e.g., stroke)
- Dehydration or electrolyte imbalance
-Data:
Category 1:
- Tests and documents reviewed: Chest x-ray with findings consistent with potential pneumonia or pleural effusion. Presence of atrial flutter confirmed through EKG.
Category 3:
- Discussion of management involved the patients power of assistant attorney general and consideration of hospital admission for further treatment and management of suspected sepsis.
DIAGNOSIS
- Sepsis due to necrotic wound, unspecified (ICD-10: A41.9)
- Atrial flutter (ICD-10: I48.92)
- Altered mental status, unspecified (ICD-10: R41.82)
- Unspecified chest pain (ICD-10: R07.9)
Past History
Past History
ED Past Medical History: GERD, HTN, Hypercholesterolemia, Renal failure and Other (Gout, kidney transplant, ADHD, neuropathy, diverticulitis, colon polyps, alcohol abuse, cognitive deficiency, kidney stones)
ED Past Surgical History: Orthopedic and Other (AV shunt)
Social History
Tobacco: Former smoker
Alcohol: Occasional
Drug: None
Personal:
Living: with family
Employment: Retired
Family History
Family History: Other (Noncontributory)
Phy Exam
Physical Exam
Physical Exam:
See HPI
Scores
Heart Score for Chest Pain Patients
STEMI patient?: Not applicable
Course
Orders/Labs/Results
Orders:
Orders
11/21/24 13:37
EKG [Electrocardiogram (*1)] Urgent
Reason for Study: Tachycardia
EKG- Treatment ONCE
11/21/24 14:05
CMP [Comprehensive Metabolic Panel] Urgent
Complete Blood Count/With Diff Urgent
Magnesium Urgent
11/21/24 14:12
TSH Reflex To Free T4 Urgent
11/21/24 14:13
Troponin I Urgent
11/21/24 14:14
0.9% Sodium Chloride 250 ml [Nss] 250 ml IV BOLUS
Diltiazem HCl [Cardizem] 5 mg IV NOW STA
11/21/24 14:15
Diltiazem 125 mg/125 ml Nss [Cardizem] 125 mg in 125 ml IV PER PROTOCOL
Initial dose in mg/hr, then titrate:: 5
Titrate to keep:: Heart rate 80-100 bpm
Titrate by mg/hr:: 5 mg/hr
Frequency of titrations (minutes):: 15
Maximum dose in mg/hr:: 15
11/21/24 14:34
Piperacillin/Tazo 3.375 Gram [Zosyn] 3.375 gram in 50 ml IV NOW
11/21/24 14:37
CR Chest Portable - 1 View Urgent
Comment:
Reason For Exam: hypoxia leukocytosis
Reason Study Needs to be Portable: Patient Unstable
11/21/24 15:20
Lactic Acid Q4H
Comment: CANCEL 2nd LACTIC ACID IF 1st LACTIC ACID IS LESS THAN 2
Blood Culture Q30M
ASHER Source: Blood/Venous
Specimen Description:
Blood Culture Q30M
ASHER Source: Blood/Venous
Specimen Description:
11/21/24 15:33
Vancomycin [Vancocin] 1,500 mg 0.9% Sodium Chloride 500 ml [Nss] 500 ml IV NOW
11/21/24 15:[address] Non Medication Order As Directed
Physician Order: please complete med rec. thanks
11/21/24 18:45
Lactic Acid Q4H
Comment: CANCEL 2nd LACTIC ACID IF 1st LACTIC ACID IS LESS THAN 2
Abnormal Lab Results
11/21/24 11/21/24
14:05 15:20
WBC 19.5 H 10^3/uL
(4.8-10.8)
RBC 3.51 L 10^6/uL
(4.70-6.10)
Hgb 10.0 L g/dL
(13.0-18.0)
Hct 32.4 L %
(39.0-52.0)
MCHC 30.9 L g/dL
(33.0-37.0)
RDW 18.4 H %
(11.5-14.5)
Plt Count 441 H 10^3/uL
(130-400)
Abs Immat Gran (auto) 0.1 H 10^3/uL
(0-0.05)
Absolute Neuts (auto) 16.5 H 10^3/uL
(1.4-6.5)
Absolute Monos (auto) 1.0 H 10^3/uL
(0.1-0.6)
Neutrophils % 85.0 H %
(42.2-75.2)
Lymphocytes % 9.2 L %
(20.5-51.1)
Sodium 132 L mmol/L
(135-145)
BUN 64 H mg/dl
(9-20)
Creatinine 5.1 H* mg/dL
(0.7-1.3)
Glucose 104 H mg/dl
(70-99)
Lactic Acid 2.2 H mmol/L
(0.7-2.0)
Calcium 8.2 L mg/dl
(8.4-10.2)
Magnesium 2.5 H mg/dl
(1.6-2.3)
Alkaline Phosphatase 180 H U/L
(38-126)
Total Protein 5.7 L g/dl
(6.3-8.2)
Albumin 2.6 L g/dl
(3.5-5.0)
11/21/24 14:05
11/21/24 14:05
Vital Signs
Initial and Last Documented VS:
Initial Vital Signs
Pulse Resp BP Pulse Ox
137 18 125/104 94
11/21/24 13:52 11/21/24 13:52 11/21/24 13:52 11/21/24 13:52
Last Documented Vital Signs
Pulse Resp BP Pulse Ox
137 18 96/69 94
11/21/24 14:00 11/21/24 13:52 11/21/24 14:00 11/21/24 14:05
*Pulse Oximetry
SaO2: 94
Nasal Cannula flow liters per minute: 4
Patient hypoxic: no
*Critical Care Note
Total Time (30-74mins, 75-104mins- exclusive of procedures): Not Applicable
ED Attending Note
-
Portions of this chart may have been created with voice recognition software.� Occasional wrong word or��sound alike� substitutions may have occurred due to the inherent limitations of voice recognition software.
Discharge Plan
Departure
Patient Disposition: Admit
Date of Disposition: 11/21/24
Time of Disposition: 15:23
Presentation/result/management discussed w/ accepting MD/DO: Hospitalist
Discharge Problem:
Sepsis
Prescriptions:
No Action
magnesium oxide 400 mg magnesium Tablet
400 mg PO BID
epoetin erika 2,000 unit/mL Solution
1,000 unit SC MOWEFR
acetaminophen [Tylenol] 325 mg Tablet
650 mg PO Q6HPRN PRN (Reason: mild pain)
magnesium hydroxide [Milk of Magnesia] 400 mg/5 mL Suspension
2,400 mg PO DAILYPRN PRN (Reason: if no bm by 3rd day)
bisacodyl [Dulcolax (bisacodyl)] 10 mg Suppository
10 mg PA DAILYPRN PRN (Reason: if no bm aftr mom)
Fleet Enema 19-7 gram/118 mL Enema
118 ml PA DAILYPRN PRN (Reason: if bm aftr dulcalax)
atorvastatin 40 MG tablet
40 mg PO HS Qty: 14 0RF
prednisone 20 mg Tablet
20 mg PO DAILY Qty: 14 0RF
melatonin 3 mg Tablet
3 mg PO HS Qty: 14 0RF
aspirin 81 mg Tablet,Delayed Release (Dr/Ec)
81 mg PO DAILY Qty: 14 0RF
gabapentin 100 mg Capsule
100 mg PO HS Qty: 14 0RF
tacrolimus [Prograf] 1 mg Capsule
2 mg PO DAILY Qty: 14 0RF
metoprolol tartrate 25 mg Tablet
25 mg PO BID Qty: 28 0RF
febuxostat 40 MG tablet
40 mg PO DAILY Qty: 14 0RF
metoprolol succinate [Toprol XL] 25 mg tablet extended release 24 hr
25 mg PO DAILY Qty: 30 0RF
Eliquis 5 mg tablet
5 mg PO BID Qty: 60 0RF
Referrals:
Tone Arreguin MD [Family Provider, Family Practice]
Interventions
Interventions:
*Risk Screen - Suicide Last Done: 11/21/24 14:00
*General Assessment Last Done: 11/21/24 14:00
*Neglect/Abuse Screening Last Done: 11/21/24 14:00
Discharge Date and Time
Print Language: OCCITAN
[2024-11-21 14:25] LABS: Hematocrit 32.4 % (39.0-52.0); Hemoglobin 10.0 g/dL (13.0-18.0); Mean Corp Hgb Conc. 30.9 g/dL (33.0-37.0); Mean Corpuscular Volume 92.3 fL (80.0-94.0); Nucleated Red Blood Cells % 0 % (-); Platelet Count 441 10^3/uL (130-400); Red Cell Dist. Width 18.4 % (11.5-14.5)
[2024-11-21] MEDS: NSS 250 IV ×3 (14:27→21:35)
[2024-11-21] MEDS: CARDIZEM 5 MG IV (14:28)
[2024-11-21] MEDS: CARDIZEM 125 IV (14:28)
[2024-11-21 14:44] LABS: ALT (SGPT) 15 U/L (0-50); AST (SGOT) 27 U/L (17-59); Albumin 2.6 g/dl (3.5-5.0); Alkaline Phosphatase 180 U/L (38-126); Blood Urea Nitrogen 64 mg/dl (9-20); Calcium 8.2 mg/dl (8.4-10.2); Carbon Dioxide 23 mmol/L (22-30); Chloride 99 mmol/L (98-107); Estimated Creatinine Clearance 12 ml/min; Glucose 104 mg/dl (70-99); Magnesium 2.5 mg/dl (1.6-2.3); Potassium 4.8 mmol/L (3.5-5.1); Sodium 132 mmol/L (135-145); Total Protein 5.7 g/dl (6.3-8.2); eGFR 11.04
[2024-11-21 14:50] LABS: Troponin I 0.024 ng/ml
[2024-11-21] MEDS: ZOSYN 50 IV ×2 (15:00→21:34)
--- NOTE | 2024-11-21 15:29 | HPS.HSE ---
Family Physician
-
Family Physician: Tone Arreguin MD
Chief Complaint
-
chest pain
History of Present Illness
74-year-old male with past medical history for end-stage renal disease on dialysis, GERD, A-fib, hypotension transferred from [facility] for evaluation for possible chest pain. for past few days, he is using oxygen 4l. a week before he was noted
hypotensive and his dialysis were held and was started on Midodrine. he was able to get his Dialysis last week. patent has chronic sacral decub which is getting worse for past few months. at present patient denied any chest pain, sob. denied CAMARA,
dizzy or syncope.denied fever, chills, cough,congestion. denied abdominal pain,n,v,d. denied dysuria or hematuria.
Upon arrival he was noted tacky, hypotensive and elevated leukocytosis. Patient initiated on Cardizem drip, IV Vanco and Zosyn. Admitted for further management.
Medical History
Past Medical History
Past Medical History: Reports Other
Additional Past Medical History:
Advanced nephrosclerosis/arteriosclerosis
Alcohol disorder
Hypertension
Hypercholesterolemia
Osteoarthritis
Insomnia
Erectile dysfunction
Spinal stenosis
Gout
ADHD
GERD
Colonic polyps
Iron deficiency
Hyperparathyroidism
Anemia
A-fib
Tremors
Past Surgical History: Reports Other
Additional Past Surgical History:
Left hip ORIF
Left inguinal hernia
Left knee meniscal surgery
Septoplasty
Polypectomy
Left cataract surgery
Right leg small squamous cell cancer
Social History
Tobacco: Non-smoker
Alcohol: None
Drug: None
Personal:
Living: Care Home
Family History
Family History: Not pertinent
Allergies / Home Medications
Allergies reflects when Allergies were last updated in [facility].
Home Medications with original date entered in [facility]
Allergy/Medication List:
Allergies
Allergy/AdvReac Type Severity Reaction Status Date / Time
allopurinol Allergy Anaphylaxis Verified 06/29/24 17:10
- DRESS
syndrome
pollen extracts Allergy Sneezing, Verified 06/29/24 17:10
watery
eyes -
seasonal
Home Medications
magnesium oxide 400 mg PO BID Electrolyte Repletion 12/17/22
acetaminophen 325 mg tablet (Tylenol) 650 mg PO Q6HPRN PRN mild pain 05/26/24
bisacodyl 10 mg rectal suppository (Dulcolax (bisacodyl)) 10 mg CA DAILYPRN PRN if no bm aftr mom 05/26/24
magnesium hydroxide 400 mg/5 mL oral suspension (Milk of Magnesia) 2,400 mg PO DAILYPRN PRN if no bm by 3rd day 05/26/24
aspirin 81 mg tablet,delayed release 81 mg PO DAILY #14 tabs 06/07/24
atorvastatin 40 mg tablet 40 mg PO HS High cholesterol #14 tabs 06/07/24
febuxostat 40 mg tablet 40 mg PO DAILY Gout #14 tabs 06/07/24
gabapentin 100 mg capsule 100 mg PO HS #14 caps 06/07/24
tacrolimus 1 mg capsule, immediate-release (Prograf) 2 mg (2 x 1 mg) PO DAILY daily #14 caps 06/07/24
metoprolol succinate 25 mg tablet,extended release 24 hr (Toprol XL) 25 mg PO DAILY #30 tabs 06/29/24
amlodipine 5 mg tablet 1 mg PO DAILY 11/21/24
famotidine 20 mg tablet 20 mg PO DAILY 11/21/24
gabapentin 100 mg tablet 100 mg PO TID 11/21/24
melatonin 3 mg tablet 6 mg PO HS 11/21/24
midodrine 5 mg tablet 5 mg PO TID 11/21/24
sevelamer HCl 800 mg tablet 800 mg PO TID 11/21/24
Review of Systems
-
Constitutional: Reports No Symptoms
EENT: Reports No Symptoms
Respiratory: Reports No Symptoms
Cardiac: Reports No Symptoms
Abdomen/GI: Reports No Symptoms
: Reports No Symptoms
Musculoskeletal: Reports No Symptoms
Skin: Reports No Symptoms
Neurological: Reports No Symptoms
Endocrine: Reports No Symptoms
Hematologic/Lymphatic: Reports No Symptoms
Psych: Reports No Symptoms
Physical Exam
Vital Signs
Vital Signs
Pulse Resp BP Pulse Ox
137 18 96/69 94
11/21/24 14:00 11/21/24 13:52 11/21/24 14:00 11/21/24 14:05
Physical Exam
General: Well Developed, Well Nourished and No Apparent Distress
HEENT: NormoCephalic, Moist mucous membranes and Atraumatic
Respiratory: Clear
Cardiac: S1/S2 and Regular Rhythm; No Murmur or Rub
GI: Soft, Non Tender, Non Distended and Normal Bowel Sounds; No Organomegaly
Rectal: Deferred by Provider
Musculoskeletal: No Clubbing, No Cyanosis and Other (Lower extremities edema)
Skin: Rash and Other (Sacral decub)
Neuro: Nonfocal/grossly intact
Psych: Confused
Laboratory Results
-
11/21/24 14:05
11/21/24 14:05
Laboratory Results
Total Bilirubin 0.8 mg/dl (0.2-1.3) 11/21/24 14:05
AST 27 U/L (17-59) 11/21/24 14:05
ALT 15 U/L (0-50) 11/21/24 14:05
Alkaline Phosphatase 180 U/L (38-126) H 11/21/24 14:05
Troponin I 0.024 ng/ml 11/21/24 14:13
Data Reviewed
-
Lab Data: Labs Reviewed by me
Impression/Plan
-
#chest pain likely from atrial flutter/atrial fib with RVR
-Cardizem drip continued
-cardiology consulted
- Chest x-ray pending
# Sepsis secondary to necrotic sacral wound
-wbc 19, lactic 2.2 and hypotension
- Zosyn and Vanco continued at
- Trend lactic
- Blood culture sent from ER
# Lower extremities edema
-Will obtain duplex
# Anemia of chronic disease
- Hemoglobin stable at 10.0, no active bleeding
- Continued to monitor
#chornic hyponatremia
#ESRD on Dialysis.
# History of kidney transplant
-na 132
-ctm
- Nephrology consulted
- Prograf, sevelamer continue
Mild Chronic Hyponatremia
# Essential Hypertension - stable, Continue metoprolol, Norvasc
#Insomnia - chronic, continue melatonin
# Hyperlipidemia - Chronic - continue statin
# Gout - chronic - continue Febuxostat
#neuropathy - chronic - Cont gabapentin
DNR
DVT ppx: SC heparin
[2024-11-21] MEDS: VANCOCIN 530 MG IV (17:35)
--- NOTE | 2024-11-21 19:01 | W.PN.CD ---
Addendum entered and electronically signed by Lázaro Kay MD 11/21/24 19:38:
-
-
Clarification: Fluter is TYPICAL FLUTTER, despite that it is slow (Atrial rate about 274 bpm/ 267 ms; and usually it is 300 bpm/200 ms
Murmur: An echo will help determine etiology of his murmur
Original Note:
Today's Communication / Plan
-
Rate control with IV Dilt as BP permits
Move to IV Amio if needed BUT NOT AT SAME time and I prefer at least 4 hours from stop IV dilt to start of IV Amio
Later move to oral meds (BB/dilt)
Later consider anticoagulation
I do not believe he is a candidate for ablation any time soon if ever
Trend trops
At a HR in 130s I do not think a shock to sinus will improve hemodynamics enough to take the risk of CVA/periph embolism
Impression / Plan
-
Presumed Sepsis
- Etiology uncertain
- He has a tunneled line for HD and has sacral decub as possible sources
Chest pain reported, denies to me
Tachycardia
- Most c/w 2:1 Flutter, duration unknown
- Sinus tachy less likely
- Had brief AFib periop from renal transplant, anticoagulation not added
- [id number] at least 3 (HTN and age2)
- Too ill to add oral anticoagulation at this time
- I don't think I favor IV heparin
ESRD
Progressive functional decline
Progressive memory decline
Long standing HTN
Hx of ETOH, heavy in past
Sacral Decub
Subjective:
Denies CP or palps to me
Physical Exam
Vital Signs/Labs
Vital Signs
Temp Pulse Resp BP Pulse Ox
97.8 F 138 17 97/69 82
11/21/24 14:00 11/21/24 18:15 11/21/24 18:15 11/21/24 18:02 11/21/24 18:30
11/20/24 11/21/24 11/22/24
06:59 06:59 06:59
Actual Weight 69.8 kg
11/21/24 14:05
11/21/24 14:05
Magnesium 2.5 mg/dl (1.6-2.3) H 11/21/24 14:05
LAB Results
11/21/24
14:13
Troponin I 0.024
Data Reviewed
-
Date of Service: November 21, 2024
--- NOTE | 2024-11-21 20:46 | PHA.VAN.IN ---
Assessment
- Assessment
Renal Function: Patient has ESRD, on chronic Hemodialysis
Maximum Temperature: 97.8
Plan
- Plan
Initial / Loading Dose: vanc 1500mg 11/21 17:35
Maintenance Regimen: dose by level with considerations on HD schedule
Monitoring: random level 9 am
Pharmacokinetics Vancomycin I
- -
Patient Age: 74
Patient Sex: Male
Vancomycin Day #: 1
Indication: Skin And Soft Tissue
Requesting Provider: Bud Rodriguez CRNP
Pertinent Antimicrobial Allergies:
no pertinent allergies
Height / Weight:
Height 6 ft
Actual Weight 69.8 kg
Pertinent Past Medical History: ESRD on HD- failed kidney transplant
- Vital Signs / Lab Results
Temp Pulse Resp BP Pulse Ox
97.8 F 128 15 105/74 82
11/21/24 14:00 11/21/24 19:39 11/21/24 19:39 11/21/24 19:39 11/21/24 18:30
Lab Results - Hematology
11/21/24
14:05
WBC 19.5 H
Lab Results - Chemistry
11/21/24
14:05
BUN 64 H
Creatinine 5.1 H*
Estimated Creat Clear 12
Albumin 2.6 L
11/21/24 11/21/24
15:20 18:53
Lactic Acid 2.2 H 2.2 H
[2024-11-21] MEDS: HEPARIN 5000 UNITS SC (21:32)
--- NOTE | 2024-11-21 21:44 | W.PN.UPDATE ---
Addendum entered and electronically signed by DELIA Boo 11/22/24 01:20:
Patient transferred up to IMU for further management. BP cuff moved from R calf due to edema to right wrist and appears to be hypertensive 180's over 110 which correlates to LLE bp. No edema noted. Levophed stopped and midodrine placed on hold.
Amiodorone infusion with bolus to start. HR continues 130s. Order previously placed for b/l lower ext US to eval for DVT.
Original Note:
Update Note
Progress Note Update
Patient noted with hypotension and diltiazem gtt stopped at 2000. NS 250 ml bolus over one hour as well as midodrine po and IV albumin. Plan per Dr. Kay is to start Amiodorone infusion at 2300 for rate control. Will begin levophed infusion for bp
support to systolic 95. If HR increases will switch to phenylephrine IV. Reviewed with art gilder Dr. Morris. Nursing poultry farm supervisor aware of possible need to transfer to ICU/IMU if pressor needs increase.
[2024-11-21] MEDS: FLEXBUMIN 50 IV (22:00)
[2024-11-21 22:44] LABS: Troponin I 0.021 ng/ml
[2024-11-21] MEDS: LEVOPHED 250 IV (23:18)
--- NOTE | 2024-11-21 23:41 | PTCARENOTE ---
Pt rec'd on IVU from ED via stretcher. Awake, and alert with stimuli. Answers name and date correct only. Lungs clear but diminished. O2 sat 94% on 3 lit n/c. B/p upon arrival 76/41. Cardizem gtt d/c'd. Dr Kay contacted via tiger text. Pt's
tele afib/flutter from 90-138. Dr Kay aware of need to stop Cardizem. Orders obtained to give Amio bolus 2 hrs after stopping Cardizem gtt then proceed with amio drip over 24 hrs.Pt's b/p 70-70's systolic. [facility] OIL EXPELLER OPERATOR contacted. 250 cc IVF
bolus plus Albumin given. B/P remains low 70-80's systolic. Order obtained from Silvia Vera to start Levo gtt and transfer pt to IMU. Pt with multiple wounds assessed including large black bed sore noted on sacrum. Inct upon arrival with smear stool.
[2024-11-21] MEDS: MELATONIN PO (23:56)
[2024-11-21] MEDS: LIPITOR PO (23:56)
[2024-11-21] MEDS: RENVELA PO (23:57)
[2024-11-21] MEDS: NEURONTIN PO (23:57)
[2024-11-22] VITALS (48 sets, daily range): BP systolic 77–192; BP diastolic 31–165; BMI 20.8
--- NOTE | 2024-11-22 00:44 | PTCARENOTE ---
Pt transferred to IMU after report given. Levo gtt increased to 3 mcq prior to transfer for sbp 79. tiger text sent to Dr Kay for update and to clarify Amio orders. Neither bolus nor drip initiated secondary to low systolic b/p. Awaiting Dr Holloway
response.
[2024-11-22] MEDS: CORDARONE 103 MG IV (01:17)
[2024-11-22] MEDS: CORDARONE 518 MG IV (01:17)
--- NOTE | 2024-11-22 01:59 | PTCARENOTE ---
patient arrived via bed from IVU, got verbal report from Mandy RN. Patient was transferred to [facility] on 3 mcg of levo. This RN checked patient bp on arrival to unit and it was 192/160, levo immediately turned off. Patient heart rate in 140s on arrival
to unit. Amnio bolus and gtt was ordered for 2300 but not given by previous RN. This RN went to hang bolus and saw amnio bolus and gtt were , both said once 00:00 11/22. Called pharmacy and they sent up new bolus and gtt. Patient also
arrived with bp cuff on right calf. Right calf on assessment had +3 edema, immediately switched to left calf. Patient has bilateral limb restrictions for fistula and midline. TT CARPENTER SUPERVISOR [employer]EN [employer]IP about whole situation and CARPENTER SUPERVISOR [employer] Silvia Vera at bedside. CARPENTER SUPERVISOR [employer]EN [employer] said
okay to using patient's right wrist for bp despite midline restriction. Patient has black sacral ulcer. on arrival abd was placed over open ulcer, replaced with boarder foam. Assessment and vitals documented. CHG bath and oral care given. call gilmore
in reach.
[2024-11-22] MEDS: ZOSYN 50 IV ×4 (02:42→20:37)
[2024-11-22] MEDS: LOPRESSOR 5 MG IV ×2 (03:33→16:59)
[2024-11-22 04:29] LABS: Blood Urea Nitrogen 65 mg/dl (9-20); Calcium 8.0 mg/dl (8.4-10.2); Carbon Dioxide 23 mmol/L (22-30); Chloride 103 mmol/L (98-107); Estimated Creatinine Clearance 11 ml/min; Glucose 98 mg/dl (70-99); Potassium 4.3 mmol/L (3.5-5.1); Sodium 133 mmol/L (135-145); eGFR 9.66
[2024-11-22 04:37] LABS: Troponin I 0.021 ng/ml
[2024-11-22 04:42] LABS: Hematocrit 25.8 % (39.0-52.0); Hemoglobin 8.0 g/dL (13.0-18.0); Mean Corp Hgb Conc. 31.0 g/dL (33.0-37.0); Mean Corpuscular Volume 92.5 fL (80.0-94.0); Platelet Count 301 10^3/uL (130-400); Red Cell Dist. Width 18.2 % (11.5-14.5)
--- NOTE | 2024-11-22 06:43 | PTCARENOTE ---
patient positive for DVT in right leg after ultrasound was done. TT DELIA Vera with results.
[2024-11-22 08:07] LABS: Hematocrit 26.3 % (39.0-52.0); Hemoglobin 8.1 g/dL (13.0-18.0); Mean Corp Hgb Conc. 30.8 g/dL (33.0-37.0); Mean Corpuscular Volume 93.9 fL (80.0-94.0); Platelet Count 308 10^3/uL (130-400); Red Cell Dist. Width 18.2 % (11.5-14.5)
[2024-11-22 08:45] LABS: APTT 43.0 Sec (23.4-35.0)
[2024-11-22] MEDS: NEURONTIN 100 MG PO ×2 (09:03→20:36)
[2024-11-22] MEDS: MAGNESIUM OXIDE 400 MG PO ×2 (09:04→20:36)
[2024-11-22] MEDS: RENVELA 800 MG PO ×3 (09:04→20:35)
[2024-11-22] MEDS: TOPROL XL 25 MG PO (09:04)
[2024-11-22] MEDS: PEPCID 20 MG PO (09:04)
--- NOTE | 2024-11-22 09:17 | W.PN.HOSP.TC ---
Today's Communication/Plan
-
Chest CT PE study
Continue with IV heparin
Continue with IV amiodarone
Continue with IV Zosyn and vancomycin for now
Assessment / Plan
Assessment / Plan
#chest pain admitting symptom
-Patient tells me it was left-sided when it started but currently asymptomatic.
-Poor historian
- Various possibilities-rapid ventricular rate, rule out PE with a newly found DVT, pneumonia
-Continue with amiodarone for rapid ventricular rate
- Check CT PE study
# Sepsis possibilities include right lung pneumonia and sacral decubitus ulcer
- Hemodynamics are stable today.
- WBCs are improving
- Wound care consult
- Continue Zosyn and vancomycin.
- Obtain right chest ultrasound to quantify pleural effusion and to have as appropriate
-Blood cultures pending
# Extensive right leg DVT
- Initiated on IV heparin
- Chest PE study pending
# Anemia of chronic disease
- Initial hemoglobin was 10 and down at 8 which has been stable since yesterday.
- Check iron studies, heme test stools and follow H&H closely
#chornic hyponatremia
#ESRD on Dialysis.
# History of kidney transplant
- Renal consulted for hemodialysis support
- Continue with his home regimen and fluid restriction.
- Per history failed renal transplant-on tacrolimus-continue tacrolimus per transplant team
# Essential Hypertension - stable, Continue metoprolol, Norvasc
#Insomnia - chronic, continue melatonin
# Hyperlipidemia - Chronic - continue statin
# Gout - chronic - continue Febuxostat
#neuropathy - chronic - Cont gabapentin
DNR
DVT ppx: SC heparin
Discussed with RN
Total time spent on today's encounter was 52 minutes which included time spent in counseling the patient/family regarding diagnosis and treatment plan as listed above, goals of care, and symptom management. Case was discussed with nursing staff,
specialists, and care coordinators/case management. All labs and imaging personally reviewed by me. Remainder the time spent in detailed review of previous records, lab data, imaging, and other medical provider documentation.
Anticipated Discharge: > 48 hours
Subjective/Interval History
-
Date of Service: November 22, 2024
Events from yesterday noted.
This morning patient is alert and oriented to self only.
Voices no specific complaints but poor historian as he seems to be cognitively impaired. He did not know where he is and why he is here.
Denying shortness of breath, chest pain or dizziness.
No nausea or vomiting.
Objective Data
-
Labs:
Laboratory Results
11/22/24 11/22/24
03:43 07:48
WBC 16.5 H 16.9 H
Hgb 8.0 L 8.1 L
Hct 25.8 L 26.3 L
Plt Count 301 D 308
APTT 43.0 H
Sodium 133 L
Potassium 4.3
Chloride 103
Carbon Dioxide 23
BUN 65 H
Creatinine 5.7 H*
Glucose 98
Calcium 8.0 L
Vital Signs:
Vital Signs
Temp Pulse Resp BP Pulse Ox
99.1 F 113 8 92/61 100
11/22/24 03:27 11/22/24 06:02 11/22/24 06:02 11/22/24 06:02 11/22/24 06:02
I&O
11/21/24 11/22/24 11/23/24
06:59 06:59 06:59
Intake Total 350 / 350
Balance 350 / 350
Physical Exam
-
General: Comfortable
Respiratory: Clear to Auscultation (Anteriorly) and Non Labored Respirations; Negative Accessory Resp Muscle Use
Cardiac: S1/S2, Irregular Rhythm, Murmur and Tachycardic
GI: Soft
Musculoskeletal: Edema, Right Lower Extrem and Edema, Left Lower Extrem
Neuro: Awake and Alert
Psych: Calm and Confused; Negative Agitated
Data Reviewed
-
Labs: Labs Reviewed by me
[2024-11-22] MEDS: HEPARIN 25000 UNITS/250 ML IV (09:28)
--- NOTE | 2024-11-22 09:48 | W.CON.NEPH ---
Consultation
-
Date/Time Consultation Requested: 11/22/2024 7:30 AM
Date/Time Consultation Performed: 11/22/2024 9:30 AM
Requesting Provider: Dr. Barton
Performing Provider: Dr. De La Vega
Reason for Consultation: End-stage renal disease
Medical History
-
Chief Complaint: End-stage renal disease
History of Present Illness:
The patient is a 73-year-old male with a past medical history of end-stage renal disease who dialyzes Wednesdays and Fridays via his left upper extremity AV fistula. He is a former renal transplant and is maintained chronically on prednisone
and tacrolimus in October of 2021 with now failed transplant. He is maintained on SONJA for his anemia of chronic kidney disease and metoprolol and amlodipine for his history of hypertension. He is also maintained on midodrine for orthostatic
hypotension . HE presented from his living facility due to chest pain. He was found to be tachycardic. Reportedly he has recently been hypoxic and hypotensive requiring low flow nasal cannula oxygen and midodrine. His ex- reports his mental
status has been declining significantly over the past few years. He is unable to care for himself.
In the ED today, he was said to be tachycardic with a heart rate in the 130s. He had a white count of 19,000. Chest imaging showed moderate right lower lobe pneumonia with component of pleural effusion. He was started on diltiazem drip for
afilutter and broad-spectrum antibiotics. He has been admitted for further evaluation and management. Nephrology was consulted for end-stage renal disease management. Due to his hypoxia chest pain and hemodynamic lability there is a strong
suspicion for pulmonary embolus. He is currently being anticoagulated with unfractionated and heparin and will go for CT with IV contrast PE protocol.
Past Medical History
ESRD Friday
Failed renal transplant from 2021
Hypertension
BK viremia
ADD-takes Adderall
Hyperlipidemia
Gout
GERD
Diverticulosis
Cognitive dysfunction per chart
ED
spinal stenosis
OA
post op Afib 10/2021
Sacral decubitus
PAST SURGICAL HISTORY:
1. Left hip ORIF.
2. Left inguinal hernia.
3. Left knee meniscal surgery.
4. Septoplasty.
5. Cataract surgery.
6. Shoulder arthroscopy.
7. Kidney biopsy 2017.
8. Colonic polypectomy.
9. Left total knee replacement 2017.
10. Reports kidney biopsy arteriogram with coil embolization June
2017.
11. Right leg squamous cell skin cancer.
12. Left upper extremity AV fistula creation January 2021.
13. Kidney transplant October 2021.
14. History of transplant kidney biopsies November 2021April
2022.
15. Transplant original stents removed October 2021.
Social History
Tobacco: Former Smoker
Alcohol: Former
Family History
No CKD
Allergies / Home Medications
Allergy/AdvReac Type Severity Reaction Status Date / Time
allopurinol Allergy Anaphylaxis Verified 06/29/24 17:10
- DRESS
syndrome
pollen extracts Allergy Sneezing, Verified 06/29/24 17:10
watery
eyes -
seasonal
�Medication �Instructions �Recorded �Confirmed �Type
magnesium oxide 400 mg PO BID Electrolyte Repletion 12/17/22 11/21/24 History
acetaminophen 325 mg tablet 650 mg PO Q6HPRN PRN mild pain 05/26/24 11/21/24 History
(Tylenol)
bisacodyl 10 mg rectal suppository 10 mg ND DAILYPRN PRN if no bm 05/26/24 11/21/24 History
(Dulcolax (bisacodyl)) aftr mom
magnesium hydroxide 400 mg/5 mL 2,400 mg PO DAILYPRN PRN if no bm 05/26/24 11/21/24 History
oral suspension (Milk of Magnesia) by 3rd day
aspirin 81 mg tablet,delayed 81 mg PO DAILY #14 tabs 06/07/24 05/26/24 Rx
release
atorvastatin 40 mg tablet 40 mg PO HS High cholesterol #14 06/07/24 11/21/24 Rx
tabs
febuxostat 40 mg tablet 40 mg PO DAILY Gout #14 tabs 06/07/24 11/21/24 Rx
gabapentin 100 mg capsule 100 mg PO HS #14 caps 06/07/24 11/21/24 Rx
tacrolimus 1 mg capsule, 2 mg (2 x 1 mg) PO DAILY daily #14 06/07/24 11/21/24 Rx
immediate-release (Prograf) caps
metoprolol succinate 25 mg 25 mg PO DAILY #30 tabs 06/29/24 11/21/24 Rx
tablet,extended release 24 hr
(Toprol XL)
amlodipine 5 mg tablet 1 mg PO DAILY 11/21/24 11/21/24 History
famotidine 20 mg tablet 20 mg PO DAILY 11/21/24 11/21/24 History
gabapentin 100 mg tablet 100 mg PO TID 11/21/24 11/21/24 History
melatonin 3 mg tablet 6 mg PO HS 11/21/24 11/21/24 History
midodrine 5 mg tablet 5 mg PO TID 11/21/24 11/21/24 History
sevelamer HCl 800 mg tablet 800 mg PO TID 11/21/24 11/21/24 History
Review of Systems
-
Constitutional: Fatigue
Respiratory: Trouble Breathing
Cardiac: Chest Pain
Skin: Other (Sacral decub)
Physical Exam
Vital Signs
Vital Signs
Temp Pulse Resp BP Pulse Ox
98.0 F 113 8 92/61 100
11/22/24 08:00 11/22/24 06:02 11/22/24 06:02 11/22/24 06:02 11/22/24 06:02
Lab Results
WBC 16.9 10^3/uL (4.8-10.8) H 11/22/24 07:48
RBC 2.80 10^6/uL (4.70-6.10) L 11/22/24 07:48
Hgb 8.1 g/dL (13.0-18.0) L 11/22/24 07:48
Hct 26.3 % (39.0-52.0) L 11/22/24 07:48
Plt Count 308 10^3/uL (130-400) 11/22/24 07:48
Sodium 133 mmol/L (135-145) L 11/22/24 03:43
Potassium 4.3 mmol/L (3.5-5.1) 11/22/24 03:43
Chloride 103 mmol/L (98-107) 11/22/24 03:43
Carbon Dioxide 23 mmol/L (22-30) 11/22/24 03:43
BUN 65 mg/dl (9-20) H 11/22/24 03:43
Creatinine 5.7 mg/dL (0.7-1.3) H* 11/22/24 03:43
eGFR 9.66 11/22/24 03:43
Glucose 98 mg/dl (70-99) 11/22/24 03:43
Calcium 8.0 mg/dl (8.4-10.2) L 11/22/24 03:43
Albumin 2.6 g/dl (3.5-5.0) L 11/21/24 14:05
Physical Exam
General: AOx2, Nontoxic , NAD, chronically ill-appearing patient,
HEENT: PERRL, EOMI, Anicteric, Conjunctivae Clear, Ear/Nose Intact, Hearing Normal, Oropharynx Clear/Moist, Dentition Intact, Facial Symmetry, Neck Supple, Neck: Trachea Midline, No JVD and No Thyromegaly, no Bruits
Respiratory: Coarse to auscultation decreased breath sounds towards the right base and with with normal lung exersion
Cardiac: S1/S2 and Regular Rate/Rhythm tachycardic
Breast: Deferred by me
Abdomen: Soft, Nontender, Nondistended, Normal Bowel Sounds and No Hepatosplenomegaly
Rectal: Deferred by Provider
Genito-urinary: No Costovertebral Tenderness
Extremities: No Clubbing, No Cyanosis and +1 to +2 edema right greater than left in the lower extremities
Skin: No Rash or open lesions
Neuro: Nonfocal/Grossly Intact, CN II-XII (Intact) and Strength (Musculoskeletal exam 5 out of 5 both upper and lower extremities)
Hematologic/Lymphatic: No Cervical Lymphadenopathy, No Submandibular Lymphadenopathy and No Supraclavicular Lymphadenopathy
Psych: Mood/afflect pleasant, Insight/judgement good and Appropriate
Vascular: plus 1 pedal and radial pulses
Vascular Access: CVC
Data Reviewed
-
Radiology: Image Personally Visualized and interpreted (Chest x-ray personally reviewed on admission no overt congestive heart failure, right-sided lower lung effusion or tunneled right IJ catheter)
Labs: Labs Reviewed by me (BMP CBC)
Old Records: Reviewed (Reviewed previous nephrology consult from date 1 patient presented with clotted access 05/26/24)
Assessment/Plan
-
Impression:
Chest pain tachycardia hypoxia
Right lower leg DVT
ESRD MWF ([facility])
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
Hypertension
History of failed renal transplant from 2021 (remains on low-dose tacrolimus)
Hyperphosphatemia
Anemia
Plan:
HD for today orders provided
AVF not functional, CVC functioning
renal diet and FR
Currently maintained on unfractionated heparin for strong suspicion of pulmonary embolus
Patient to go for CT angiogram of chest for PE protocol
Maintain sevelamer for hyperphosphatemia
Cultures pending for possible infectious source, antibiotics to be renally dosed
Escalate SONJA dosage for anemia
Check tacrolimus trough level
Hold antihypertensives in setting of hypotension, midodrine has been provide
[2024-11-22] MEDS: PROGRAF 2 MG PO (10:36)
--- NOTE | 2024-11-22 11:05 | W.PN.CD ---
Today's Communication / Plan
-
Continue with amiodarone for rate control.
- Anticoagulation being directed by primary team
Impression / Plan
-
Presumed Sepsis
- Etiology uncertain
- He has a tunneled line for HD and has sacral decub as possible sources
- Monitor cultures pending
Chest pain reported,. Did not report chest pain to Dr. Kay. No chest pain today.
Atrial flutter duration unknown
- Sinus tachy less likely
- Had brief AFib periop from renal transplant, anticoagulation not added
- [id number] at least 3 (HTN and age2)
- Currently on heparin under the direction of the primary team
- Continue with amiodarone for rate control. Blood pressure limits treatment options
ESRD
Progressive functional decline
Progressive memory decline
Long standing HTN
Hx of ETOH, heavy in past
Sacral Decub
Subjective:
No palpitations or heart racing. No complaints of shortness of breath.
Physical Exam
Vital Signs/Labs
Vital Signs
Temp Pulse Resp BP Pulse Ox
98.0 F 113 23 106/75 99
11/22/24 08:00 11/22/24 10:45 11/22/24 10:45 11/22/24 10:00 11/22/24 09:53
11/21/24 11/22/24 11/23/24
06:59 06:59 06:59
Actual Weight 69.598 kg
11/22/24 07:48
11/22/24 03:43
APTT 43.0 Sec (23.4-35.0) H 11/22/24 07:48
Magnesium 2.5 mg/dl (1.6-2.3) H 11/21/24 14:05
LAB Results
11/21/24 11/21/24 11/22/24
14:13 21:49 03:43
Troponin I 0.024 0.021 0.021
Physical Exam
Constitutional: No acute distress
Cardiovascular: Other (Tachycardic. Telemetry suggests atrial flutter)
Respiratory: Wheeze Absent and Rhonchi Absent
GI: Soft and Non tender
Neuro/Psych: Alert
Data Reviewed
-
Date of Service: November 22, 2024
Medical Decision Making: Reviewed Test Results
EKG: Report Reviewed by me
Medical Tests (PFT, Pathology etc): Report Reviewed by me
Labs: Labs Reviewed by me
--- NOTE | 2024-11-22 11:09 | PTOTSP ---
Speech Pathology
74M with admission for chest pain, dx with sepsis 2/2 infected sacral wound vs PNA. Presents with s/s concerning for a mild to moderate oropharyngeal dysphagia, likely acute, characterized by intermittent coughing with thin liquids and regular
textures and impaired mastication of regular solids. Aspiration risk is increased 2/2 AMS; lethargy; concern for current PNA; GERD hx; current need for feeding assistance; and tenuous respiratory status.
Recommend:
1. Downgrade to minced and moist solids (IDDSI 5), thin liquids
2. Meds crushed vs whole in puree
3. Safe swallowing strategies - partial supervision and feeding assistance; ensure clearance of oral cavity prior to each bite/sip; HOB elevated; only feed when awake and alert
4. Reflux precautions
5. HALF BACKER service to follow up re: to assess diet level tolerance and provide dysphagia tx at the acute care level
--- NOTE | 2024-11-22 12:27 | PTCARENOTE ---
IV Amiodarone infusing per orders at 16.7ml/hr, initiated IV Heparin gtt per orders infusing at 1300units/hr. IV Zosyn given as well . Limited BP access taking on right wrist, mostly 90s-100s/ 40-50s. Maps 63-68. Midodrine administered this am-
will give another dose prior to HD. Escorted to CT scan- completed, US completed at bedside. Multiple DTIs on lower extremities- measured and foams placed. Foul smelling unstagable decub on sacrum with moderate drainage cleansed and foam
replaced. Turning q 2. Appetite good. Diet mod noted.
[2024-11-22] MEDS: ULORIC 40 MG PO (12:46)
[2024-11-22] MEDS: TYLENOL 650 MG PO (12:47)
--- NOTE | 2024-11-22 13:53 | W.PN.NEPH.HD ---
Assessment
-
Patient seen on dialysis
Poorly responsive
Systolic blood pressure around 89
Levophed pressor support available if needed to keep MAP above 65
Will titrate back UF if blood pressure falls further
CT of chest reviewed noted pulmonary embolism within posterior right lower lobe segmental pulmonary artery without evidence of right heart strain
Progress Note - Hemodialysis
-
Date of Service: November 22, 2024
Duration: 30 minutes and 3 hours
Potassium Bath: 3
Calcium Bath: 2.5
Opti-Dialyzer: 160
Ultrafiltration: Other (1 kg is hemodynamically tolerated)
Blood Flow: 400
Dialysate Flow: 600
Heparin: None: on heparin gtt
EPO: 10K
[2024-11-22] MEDS: MANNITOL 25% 12.5 GRAMS IV (13:58)
[2024-11-22] MEDS: RETACRIT 10000 UNITS IV (13:58)
--- NOTE | 2024-11-22 15:32 | PHA.VAN.FU ---
Vancomycin Assessment / Plan
- Assessment
Hemodialysis Schedule: MWF
WBC's are: Trending Down
- Assessment - Therapeutic Drug Monitoring
Random Level: 17.6- drawn approx 10 hr after vanc 1500mg
- Dosing Plan
Dosing by Level: Re-dose today (vanco 500mg after HD)
- Monitoring Plan
No level(s) ordered at this time: Will repeat random level prior to next HD session.
- Follow Up
Pharmacy will continue to follow.
Vancomycin Follow UP
- -
Patient Age: 74
Patient Sex: Male
Vancomycin Day #: 2
Indication: Skin And Soft Tissue
Requesting Provider: Bud Rodriguez CRNP
Pertinent Antimicrobial Allergies:
no pertinent allergies
Height / Weight:
Height 6 ft
Actual Weight 69.598 kg
Pertinent Past Medical History: ESRD on HD- failed kidney transplant
- Vital Signs / Lab Results
Temp Pulse Resp BP Pulse Ox
97.7 F 109 13 111/75 100
11/22/24 11:30 11/22/24 14:15 11/22/24 14:15 11/22/24 14:15 11/22/24 14:15
Lab Results - Hematology
11/21/24 11/22/24 11/22/24
14:05 03:43 07:48
WBC 19.5 H 16.5 H 16.9 H
Lab Results - Chemistry
11/21/24 11/22/24
14:05 03:43
BUN 64 H 65 H
Creatinine 5.1 H* 5.7 H*
Estimated Creat Clear 12 11
Albumin 2.6 L
11/21/24 11/21/24 11/21/24
15:20 18:53 21:53
Lactic Acid 2.2 H 2.2 H 1.5
Microbiology Results
11/21/24 15:20 Blood Culture - Preliminary
Blood/Venous No Growth in 24 hours- Final report to follow
11/21/24 15:20 Blood Culture - Preliminary
Blood/Venous No Growth in 24 hours- Final report to follow
Therapeutic Drug Monitoring
Random Vancomycin 17.6 ug/ml 11/22/24 03:43
[2024-11-22 16:21] LABS: APTT 94.6 Sec (23.4-35.0)
[2024-11-22] MEDS: VANCOCIN HCL 500 MG 100 IV (17:52)
--- NOTE | 2024-11-22 18:00 | PTCARENOTE ---
Completed HD IV antibx given, HR remains 120s PRN IV Lopressor administered rates now 110s BP 102/68. IV Amiodarone, IV Heparin infusing. Sleepy, easily arousable. O2 at 3L NC. 93%. Turning q 2.
[2024-11-22] MEDS: LIPITOR 40 MG PO (20:36)
[2024-11-22] MEDS: MELATONIN 6 MG PO (20:36)
[2024-11-22 23:04] LABS: APTT > 200 Sec (23.4-35.0)
[2024-11-23] VITALS (15 sets, daily range): BP systolic 75–164; BP diastolic 54–131; BMI 21.0
[2024-11-23] MEDS: TYLENOL 650 MG PO (02:14)
[2024-11-23] MEDS: ZOSYN 50 IV ×2 (02:14→15:04)
[2024-11-23] MEDS: LOPRESSOR 5 MG IV ×2 (02:15→16:36)
[2024-11-23] MEDS: CORDARONE 518 MG IV (02:51)
--- NOTE | 2024-11-23 03:09 | PTCARENOTE ---
2200 ptt came back greater than 200. TT CLINICAL EDUCATION SPECIALIST. gtt off for two hours and then decreased by 3. next ptt in 6 hours.
[2024-11-23 06:21] LABS: Hematocrit 24.5 % (39.0-52.0); Hemoglobin 7.7 g/dL (13.0-18.0); Mean Corp Hgb Conc. 31.4 g/dL (33.0-37.0); Mean Corpuscular Volume 93.2 fL (80.0-94.0); Platelet Count 293 10^3/uL (130-400); Red Cell Dist. Width 18.6 % (11.5-14.5)
[2024-11-23 06:36] LABS: APTT 83.9 Sec (23.4-35.0)
[2024-11-23 06:40] LABS: Blood Urea Nitrogen 32 mg/dl (9-20); Calcium 7.5 mg/dl (8.4-10.2); Carbon Dioxide 30 mmol/L (22-30); Chloride 99 mmol/L (98-107); Estimated Creatinine Clearance 22 ml/min; Glucose 94 mg/dl (70-99); Iron 49 ug/dl (49-181); Magnesium 2.2 mg/dl (1.6-2.3); Potassium 3.5 mmol/L (3.5-5.1); Sodium 131 mmol/L (135-145); eGFR 21.74
[2024-11-23 06:49] LABS: Total Iron Binding Capacity 104 ug/dl (261-462)
[2024-11-23 08:04] LABS: Ferritin 1320.0 ng/ml (17.9-464.0)
--- NOTE | 2024-11-23 08:17 | PHA.VAN.FU ---
Vancomycin Assessment / Plan
- Assessment
Hemodialysis Schedule: MWF
In the past 24 hrs, patient has been: Afebrile
Concomitant Antimicrobials: piperacillin/tazobactam
- Dosing Plan
Dosing by Level: Hold off on dosing today
- Monitoring Plan
Random Level: 11/24 prior to HD
- Follow Up
Pharmacy will continue to follow.
Vancomycin Follow UP
- -
Patient Age: 74
Patient Sex: Male
Vancomycin Day #: 3
Indication: Skin And Soft Tissue
Requesting Provider: Bud Rodriguez CRNP
Pertinent Antimicrobial Allergies:
no pertinent antibiotic allergies
Height / Weight:
Height 6 ft
Actual Weight 70.335 kg
Pertinent Past Medical History: ESRD on HD MWF- failed kidney transplant
- Vital Signs / Lab Results
Temp Pulse Resp BP Pulse Ox
98.5 F 103 9 100/58 100
11/23/24 03:06 11/23/24 06:15 11/23/24 06:15 11/23/24 06:00 11/23/24 06:15
Lab Results - Hematology
11/21/24 11/22/24 11/22/24
14:05 03:43 07:48
WBC 19.5 H 16.5 H 16.9 H
11/23/24
06:10
WBC 15.1 H
Lab Results - Chemistry
11/21/24 11/22/24 11/23/24
14:05 03:43 06:10
BUN 64 H 65 H 32 H
Creatinine 5.1 H* 5.7 H* 2.9 H
Estimated Creat Clear 12 02 12
Albumin 2.6 L
11/21/24 11/21/24 11/21/24
15:20 18:53 21:53
Lactic Acid 2.2 H 2.2 H 1.5
Microbiology Results
11/21/24 21:49 MRSA Screen - Final
Nose No Methicillin Resistant Staphylococcus aureus isolated.
11/21/24 15:20 Blood Culture - Preliminary
Blood/Venous No Growth in 24 hours- Final report to follow
11/21/24 15:20 Blood Culture - Preliminary
Blood/Venous No Growth in 24 hours- Final report to follow
Therapeutic Drug Monitoring
Random Vancomycin 17.6 ug/ml 11/22/24 03:43
--- NOTE | 2024-11-23 08:27 | W.PN.CD ---
Today's Communication / Plan
-
Cont amio and metop for now
Hopeful that as patient improves HR improves
Could consider DCCV prior to discharge pending HRs
Impression / Plan
-
Presumed Sepsis
- Etiology uncertain
- He has a tunneled line for HD and has sacral decub as possible sources
- Monitor cultures pending
Chest pain reported,. likely 2/2 to PE
Atrial flutter duration unknown
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
- Had brief AFib periop from renal transplant, anticoagulation not added
- [id number] at least 3 (HTN and age2)
- Currently on heparin will need AC 2/2 PE
- Continue with amiodarone for rate control for now started on metop 25 mg
- Given need for AC could consider DCCV prior to DC if rates are difficult to control
Acute PE with extensive right DVT
- on heparin gtt
- will need AC for this
ESRD
Progressive functional decline
Progressive memory decline
Long standing HTN
Hx of ETOH, heavy in past
Sacral Decub
Subjective:
Tired and drowsy this AM
Physical Exam
Vital Signs/Labs
Vital Signs
Temp Pulse Resp BP Pulse Ox
98.2 F 103 9 100/58 100
11/23/24 07:25 11/23/24 06:15 11/23/24 06:15 11/23/24 06:00 11/23/24 06:15
11/22/24 11/23/24 11/24/24
06:59 06:59 06:59
Actual Weight 153 lb 7 oz 155 lb 1 oz
11/23/24 06:10
11/23/24 06:10
APTT 83.9 Sec (23.4-35.0) H 11/23/24 06:10
Magnesium 2.2 mg/dl (1.6-2.3) 11/23/24 06:10
LAB Results
11/21/24 11/21/24 11/22/24
14:13 21:49 03:43
Troponin I 0.024 0.021 0.021
11/22/24
13:00
Troponin I Cancelled
Physical Exam
Constitutional: No acute distress and Other (tired)
EENT: Anicteric
Cardiovascular: Pedal edema is absent and Rhythm/rate is irregular
Respiratory: Respiratory effort normal and Other (decreased b/s on right side)
GI: Soft
Neuro/Psych: Alert and Oriented
Data Reviewed
-
Date of Service: November 23, 2024
Medical Decision Making: Reviewed Test Results
EKG: Tracing Personally Visualized and interpreted (a flutter)
Echo: Other (pending)
Labs: Labs Reviewed by me
--- NOTE | 2024-11-23 08:47 | W.PN.HOSP.TC ---
Today's Communication/Plan
-
Continue with Zosyn. Stop IV vancomycin.
Right thoracentesis today
Will consider switch from IV heparin to Eliquis after the pleural tap
Continue with IV amiodarone per cardiology
Assessment / Plan
Assessment / Plan
#chest pain admitting symptom
-Patient told me it was left-sided when it started ;remains asymptomatic today.
- Poor historian
- Various possibilities-rapid ventricular rate, PE , right pleural effusion with past pneumonia
-Continue with amiodarone for rapid ventricular rate
-Continue with IV heparin for DVT/PE
# Sepsis possibilities include right lung pneumonia and sacral decubitus ulcer
- Hemodynamics remained stable
- WBCs are improving
- Continue with wound care
- Not bacteremic and MRSA screen negative. Stop IV vancomycin. Continue with Zosyn
# Extensive right leg DVT with PE. No right ventricular strain on the CT chest. Hemodynamically stable.
- Continue with IV heparin and switch to oral Eliquis after right pleural tap.
# Large right pleural effusion-unclear if secondary to underlying pneumonia or PE. Will arrange for right thoracentesis today
# Anemia of chronic disease
- Initial hemoglobin was 10 and down at 7. 7 which has been stable from yesterday
- No obvious external bleeding. Heme test still pending.
- Iron studies suggest anemia of chronic disease
- Continue to follow H&H for now and aim to keep it more than 7.
#chornic hyponatremia
#ESRD on Dialysis.
# History of kidney transplant
- Continue with hemodialysis support
- Continue with his home regimen and fluid restriction.
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
# Essential Hypertension - stable, Continue metoprolol, Norvasc
#Insomnia - chronic, continue melatonin
# Hyperlipidemia - Chronic - continue statin
# Gout - chronic - continue Febuxostat
#neuropathy - chronic - Cont gabapentin
DNR
DVT ppx: SC heparin
Discussed with [place] ex- and current POA. Patient was listed [facility] per records and also per long-term physician who was in touch with me yesterday. [place] states that with the chest pain as a symptom she could not keep him at the long-term
and suffer so asked for hospitalization.
She understands the complex nature of his medical diseases including organ failure needing hemodialysis support. She tells me that Ul[facility] has not been out of bed now at long-term and physical therapy was stopped as he was not progressing well.
I encouraged her to really consider the goals of care-prognosis is poor with organ dysfunction and now pretty much bedbound status.
Her goals is no suffering and no pain. Remains DNR/DNI. She is not sure what to do with dialysis support.
Discussed with RN
Total time spent on today's encounter was 52 minutes which included time spent in counseling the patient/family regarding diagnosis and treatment plan as listed above, goals of care, and symptom management. Case was discussed with nursing staff,
specialists, and care coordinators/case management. All labs and imaging personally reviewed by me. Remainder the time spent in detailed review of previous records, lab data, imaging, and other medical provider documentation.
Anticipated Discharge: > 48 hours
Subjective/Interval History
-
Date of Service: November 23, 2024
Patient was sleeping when I entered the room but was easily arousable.
He is not oriented to place, day, month or the year. He is oriented to self only.
He is not cognizant of events leading to hospitalization or ongoing evaluation and treatment.
He has been having congnitive issues lately per [place] his Ex and his current POA during my discussions yesterday with her.
Some days he would not even recognize her.
Objective Data
-
Labs:
Laboratory Results
11/22/24 11/23/24 11/23/24
22:16 06:10 13:00
WBC 15.1 H
Hgb 7.7 L
Hct 24.5 L
Plt Count 293
APTT > 200 H* 83.9 H Pending
Sodium 131 L
Potassium 3.5
Chloride 99
Carbon Dioxide 30
BUN 32 H
Creatinine 2.9 H
Glucose 94
Calcium 7.5 L
Vital Signs:
Vital Signs
Temp Pulse Resp BP Pulse Ox
98.2 F 100 18 106/58 100
11/23/24 07:25 11/23/24 08:30 11/23/24 08:15 11/23/24 08:00 11/23/24 08:30
I&O
11/22/24 11/23/24 11/24/24
06:59 06:59 06:59
Intake Total 350 / 350 710 / 710
Balance 350 / 350 710 / 710
Physical Exam
-
General: No Apparent Distress
Respiratory: Clear to Auscultation (anterior auscultation) and Non Labored Respirations; Negative Accessory Resp Muscle Use
Cardiac: S1/S2 and Irregular Rhythm; Negative Tachycardic
GI: Soft and Other (Palpable transplanted kidney right lower quadrant)
Neuro: Awake and Alert; Negative Oriented
Psych: Calm and Confused; Negative Agitated
Data Reviewed
-
Labs: Labs Reviewed by me
[2024-11-23] MEDS: HEPARIN 25000 UNITS/250 ML IV (10:08)
[2024-11-23] MEDS: PROGRAF 2 MG PO (10:21)
[2024-11-23] MEDS: TOPROL XL 25 MG PO (10:22)
[2024-11-23] MEDS: RENVELA 800 MG PO ×2 (10:22→16:37)
[2024-11-23] MEDS: MAGNESIUM OXIDE 400 MG PO ×2 (10:22→21:14)
[2024-11-23] MEDS: NEURONTIN 100 MG PO ×2 (10:23→21:14)
--- NOTE | 2024-11-23 10:55 | W.PN.NEPH.PH ---
Today's Communication / Plan
-
HD tomorrow
Assessment/Plan
-
Impression:
Chest pain tachycardia hypoxia
Right lower leg DVT
ESRD MWF ([facility] ?)
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
Hypertension
History of failed renal transplant from 2021 (remains on low-dose tacrolimus)
Hyperphosphatemia
Anemia
Plan:
HD tomorrow
AVF not functional, CVC functioning
renal diet and FR
Currently maintained on unfractionated heparin for strong suspicion of pulmonary embolus
Patient to go for CT angiogram of chest for PE protocol
Maintain sevelamer for hyperphosphatemia
Cultures pending for possible infectious source, antibiotics to be renally dosed
Escalate SONJA dosage for anemia
BP soft on midodrine
-
-
Date of Service: November 23, 2024
CC / HPI / ROS
-
Chief Complaint:
ESRD, failed KTP
History of Present Illness:
WBC high 15.1k
hb low 7.7
no fever
BP soft on midodrine
Review of Systems:
no cp or sob at rest
no n/v
Labs
-
Labs:
WBC 15.1 10^3/uL (4.8-10.8) H 11/23/24 06:10
RBC 2.63 10^6/uL (4.70-6.10) L 11/23/24 06:10
Hgb 7.7 g/dL (13.0-18.0) L 11/23/24 06:10
Hct 24.5 % (39.0-52.0) L 11/23/24 06:10
Plt Count 293 10^3/uL (130-400) 11/23/24 06:10
Sodium 131 mmol/L (135-145) L 11/23/24 06:10
Potassium 3.5 mmol/L (3.5-5.1) 11/23/24 06:10
Chloride 99 mmol/L (98-107) 11/23/24 06:10
Carbon Dioxide 30 mmol/L (22-30) 11/23/24 06:10
BUN 32 mg/dl (9-20) H 11/23/24 06:10
Creatinine 2.9 mg/dL (0.7-1.3) H 11/23/24 06:10
eGFR 21.74 11/23/24 06:10
Glucose 94 mg/dl (70-99) 11/23/24 06:10
Calcium 7.5 mg/dl (8.4-10.2) L 11/23/24 06:10
Albumin 2.6 g/dl (3.5-5.0) L 11/21/24 14:05
Physical Exam
-
Vital Signs:
Vital Signs
Temp Pulse Resp BP Pulse Ox
94.8 F L 102 18 108/82 98
11/23/24 11:40 11/23/24 11:40 11/23/24 11:40 11/23/24 11:40 11/23/24 11:40
Cardiovascular:: Regular rate and rhythm
Respiratory:: Bilateral: Coarse
Lung Excursion:: Normal
Abdomen:: Nontender and Soft
Bowel Sounds:: Normal
Extremity Edema:: +1: Bilateral:
Jacob Catheter: No
[2024-11-23] MEDS: ZOSYN IV (11:27)
--- NOTE | 2024-11-23 11:33 | W.CON.PAL ---
Consultation
-
Date/Time Consultation Requested: 11/23
Date/Time Consultation Performed: 11/24
Performing Provider: Erica LIN
Reason for Consult: Goals of Care Discussion
Reason for Admission
Illness Course/HPI
74 year old M with history of ESRD 2/2 failed kidney transplant on HD, A-fib, HTN, likely undiagnosed dementia admitted from [facility] with chest pain. Upon admission he was found to be tachycardic and with reports from EMS that he had
recently been hypoxic and hypotensive requiring oxygen and midodrine at the facility. Per his ex who is involved in his care, she reports his mental status has been declining significantly over the past few years. He is bedbound and unable to
care for himself. Also has an unstageable chronic sacral decubitus ulcer which has gotten worse over the past few months.
Upon admission heart rate in the 130s, labs significant for WBC 19,000. Chest imaging showed moderate right lower lobe pneumonia with component of pleural effusion. Started on ABX for possible PNA vs wound infection vs both. Also new a flutter and
started on diltiazem drip. CT +for PE and LE DVT on ultrasound. Started on heparin gtt with plans to transition to eliquis but has R thoracentesis pending for large R effusion.
Per chart review, conversations held with [place], patients ex about poor prognosis. She is aware of his significant decline and doesnt want him to suffer but is unsure of what to do with him being on HD. Was made DNR/DNI by her, but He also has
a son listed in his chart.
Seen at bedside this AM with no family present.
Objective Data
-
Objective Data:
Vital Signs
Temp Pulse Resp BP Pulse Ox
98.2 F 100 18 106/58 100
11/23/24 07:25 11/23/24 08:30 11/23/24 08:15 11/23/24 08:00 11/23/24 08:30
Laboratory Results
11/23/24 06:10
11/23/24 06:10
APTT 83.9 Sec (23.4-35.0) H 11/23/24 06:10
Total Protein 5.7 g/dl (6.3-8.2) L 11/21/24 14:05
Albumin 2.6 g/dl (3.5-5.0) L 11/21/24 14:05
Palliative Performance Scale
Palliative Performance Scale:
PPS Level Ambulation Activity & Evidence of Disease Self Care Intake Conscious Level
100% Full Normal Activity & Work; Full Intake Full
No Evidence of Disease
90% Full Normal Activity & Work; Full Normal Full
Some Evidence of Disease
80% Full Normal Activity with Effort Full Normal or Full
Some Evidence of Disease Reduced
70% Reduced Unable Normal Job/Work Full Normal or Full
Significant Disease Reduced
60% Reduced Unable Hobby/Housework Occasional Normal or Full or Confusion
Significant Disease Assistance Reduced
50% Mainly Sit/Lie Unable to do Any Work Considerable Normal or Full or Confusion
Extensive Disease Assistance Req'd Reduced
40% Mainly in Bed Unable to do Most Activity Mainly Assistance Normal or Full or Drowsy;
Extensive Disease Reduced +/- Confusion
30% Totally Bed Unable to do Any Activity Total Care Normal or Full or Drowsy;
Bound Extensive Disease Reduced +/- Confusion
20% Totally Bed Bound Unable to do Any Activity Total Care Minimal to Full or Drowsy;
Extensive Disease Sips +/- Confusion
10% Totally Bed Bound Unable to do Any Activity Total Care Mouth Care Drowsy or Coma;
Extensive Disease Only +/- Confusion
0%
PPS Score Level:
Physical Exam
-
General: Appears Chronically Ill
HEENT: Normocephalic
Cardiac: Irregular Rhythm
GI: Soft
Skin: Warm and Decubitus Ulcers
Neuro: Awake
Psych: Confused
Assessment / Plan
-
Assessment/Plan:
74 year old M with vascular dementia, sacral ulcer, ESRD on HD. Treating for PNA vs sacral ulcer infection.
- attempted to call patients ex Chelsea, no answer. Left message for call back
- patient has no legal paperwork in his chart for medical decision maker. Has a son listed on his chart who would technically be his NOK if he is legally from [place].
- will try to reach Chelsea again tomorrow
Care Reviewed
Data Reviewed
Radiology procedure: Report Reviewed
Medical Tests: I reviewed
Reviewed with: Patient, Family and Physician
[2024-11-23] MEDS: ULORIC 40 MG PO (15:04)
--- NOTE | 2024-11-23 15:23 | WOUNDNOTE ---
LEFT 2ND TOE
--- NOTE | 2024-11-23 15:23 | WOUNDNOTE ---
LEFT LATERAL KNEE
--- NOTE | 2024-11-23 15:24 | WOUNDNOTE ---
RIGHT LATERAL KNEE
--- NOTE | 2024-11-23 15:26 | WOUNDNOTE ---
LEFT LATERAL ANKLE
--- NOTE | 2024-11-23 15:26 | WOUNDNOTE ---
LEFT LATERAL FOOT
--- NOTE | 2024-11-23 15:27 | WOUNDNOTE ---
LEFT LATERAL 3RD TOE
--- NOTE | 2024-11-23 15:27 | WOUNDNOTE ---
LEFT MEDIAL ANKLE
--- NOTE | 2024-11-23 15:29 | WOUNDNOTE ---
RIGHT LATERAL DISTAL LOWER LEG
--- NOTE | 2024-11-23 15:29 | WOUNDNOTE ---
RIGHT LATERAL ANKLE
--- NOTE | 2024-11-23 16:00 | PTCARENOTE ---
Patient back from IR. Removed 1100 mls fluid from right lung. Band aide in place. VS stable. Amio and heparin drips infusing as ordered. PICC line to be placed by VAT team. Wound care done by wound statistical clerk.
[2024-11-23 16:09] LABS: LDH 191 U/L (120-246); Total Protein 4.6 g/dl (6.3-8.2)
--- NOTE | 2024-11-23 16:17 | WOUNDNOTE ---
LEFT LATERAL 5TH TOE
--- NOTE | 2024-11-23 16:18 | WOUNDNOTE ---
RIGHT LATERAL PROXIMAL LOWER LEG
--- NOTE | 2024-11-23 16:30 | WOUNDNOTE ---
WO RN NOTE: Reviewed chart and met with patient. Patient with multiple comorbidities, pain and lethargy. LE edematous with multiple DTI of left lateral ankle and foot and right leg. Patient also has unstageable PI to sacrum. Sacral wound is 90%
covered with adherent eschar with some open areas and non-blanchable skin around wound. TT Dr. Barton to plan wound care around goals of care. Per Dr. Barton, his plan is to talk to POA sister regarding goals of care. Until a decision is made the plan
for the sacral wound will be Santyl. At this time, it is appropriate for all other wound to be covered with silicone border foam. Continue all off-loading measures including use of additional air cushion when positioning patient. Patient
demonstrates poor appetite and mobility. He is on a Centrella Max Air and turning schedule. ZAFAR Regalado given update. Will update order and follow as needed.
--- NOTE | 2024-11-23 16:43 | CM ---
Patient seen at bedside
IA completed-obtained by ex [place]
dx: chest pain
PMH: medical history of ESRD (failed kidney transplant, on HD), A-fib, hypertension, and suspected dementia
states patient went to [facility] 10/19 from [facility]
referral entered in careport
PLOF: reported max assist
PCP: Tone Arreguin
Pharmacy: [facility]
PLAN: TBD, follow hospital progress, CM to follow for needs
--- NOTE | 2024-11-23 16:57 | WOUNDNOTE ---
[facility] RN NOTE: Reviewed chart and met with patient. Patient with multiple comorbidities, pain and lethargy. Patient admitted with multiple DTI's and unstageable PI. LE edematous with multiple DTI of left lateral ankle and foot and right leg. Sacral
wound is 90% covered with adherent eschar with some open areas and non-blanchable skin around wound. TT Dr. Barton to plan wound care around goals of care. Per Dr. Barton, his plan is to talk to POA sister regarding goals of care. Until a decision is
made the plan for the sacral wound will be Santyl. At this time, it is appropriate for all other wound to be covered with silicone border foam. Due to pain of LE, fiberfilled boots not ordered for patient, as he wound not be able to tolerate. Heels
off-loaded with pillows under calves. Continue all off-loading measures including use of additional air cushion when positioning patient. Patient demonstrates poor appetite and mobility. He is on a Centrella Max Air and turning schedule. ZAFAR Regalado
given update. Will update order and follow as needed.
[2024-11-23 17:30] LABS: APTT > 200 Sec (23.4-35.0)
[2024-11-23] MEDS: LIPITOR 40 MG PO (21:14)
[2024-11-23] MEDS: MELATONIN 6 MG PO (21:14)
[2024-11-24] VITALS (65 sets, daily range): BP systolic 77–198; BP diastolic 32–163
[2024-11-24 02:25] LABS: APTT 54.9 Sec (23.4-35.0)
[2024-11-24] MEDS: ZOSYN 50 IV ×2 (03:13→14:25)
[2024-11-24] MEDS: HEPARIN 5600 UNITS IV (03:14)
[2024-11-24 04:04] LABS: Hematocrit 26.0 % (39.0-52.0); Hemoglobin 8.3 g/dL (13.0-18.0); Mean Corp Hgb Conc. 31.9 g/dL (33.0-37.0); Mean Corpuscular Volume 92.2 fL (80.0-94.0); Platelet Count 361 10^3/uL (130-400); Red Cell Dist. Width 18.7 % (11.5-14.5)
[2024-11-24 04:27] LABS: Blood Urea Nitrogen 40 mg/dl (9-20); Calcium 7.8 mg/dl (8.4-10.2); Carbon Dioxide 28 mmol/L (22-30); Chloride 98 mmol/L (98-107); Estimated Creatinine Clearance 16 ml/min; Glucose 98 mg/dl (70-99); Potassium 3.8 mmol/L (3.5-5.1); Sodium 131 mmol/L (135-145); eGFR 15.72
--- NOTE | 2024-11-24 04:34 | PTCARENOTE ---
pt aaox1-2, confused at times but able to hold reasonable conversation. remains on iv heparin and iv amio gtt. VSS, SaO2 100% on 1LNC, HR 90-110. Remains afib/aflutter on monitor. BP stable. pulses present with dopplar. Resting comfortably in bed at
this time. Care ongoing.
--- NOTE | 2024-11-24 07:49 | PTCARENOTE ---
Assumed care of patient this AM. Patient receiving HD with Tammy STEPHEN. Midodrine given this morning prior to HD. A tavon drip infusing at 16.7 mls/hr via right d/l PICC. AFIB /FLUTTER on monitor hr 90-120. Last BP 113/85 BP cuff on left leg.
--- NOTE | 2024-11-24 09:23 | W.PN.NEPH.HD ---
Assessment
-
Patient seen on dialysis
Systolic blood pressure 87 despite midodrine administration
UF around 1 kg
Progress Note - Hemodialysis
-
Date of Service: November 24, 2024
Duration: 30 minutes and 3 hours
Potassium Bath: 3
Calcium Bath: 2.5
Opti-Dialyzer: 160
Ultrafiltration: Other
Blood Flow: 400
Dialysate Flow: 600
Heparin: On heparin drip
EPO: 10,000
--- NOTE | 2024-11-24 10:04 | W.PN.CD ---
Today's Communication / Plan
-
Continue current management.
Check cortisol level.
Complete agreement with palliative care consult to assess goals of care, treatment trajectory.
Impression / Plan
-
Impression/Plan: 74 y/o male with ESRD s/p failed renal TX, now on HD, AF, HTN, dementia with profound clinical decline and a sacral decubitus ulcer admitted from [facility] with 'chest pain' but now asymptomatic, but found to meet SIRS/sepsis
criteria, subsequently diagnosed with acute PE.
#Presumed Sepsis
-Acute, threat to life.
-Etiology uncertain with multiple potential sources of infection (tunneled line, sacral decubitus ulcer, PNA with pleural effusion).
-Thoracentesis for 1100 mL of straw colored fluid (borderline positive Light's criteria: protein ratio = 0.5; LDH ratio = 0.52).
-Vancomycin discontinued. Piperacillin-tazobactam continues.
-Remains hypotensive in spite of treatment of infection and BP augmentation with midodrine.
-Check cortisol level.
-Culture data negative to date.
#Chest pain
-Currently denies.
-Troponin 0.021.
-Likely 2/2 to PE.
#PE/RLE DVT
-Acute, threat to life.
-Continue heparin gtt.
-halfway anticoagulation? This will depend on treatment trajectory.
#Atrial flutter
-Duration unknown.
-Had brief AFib periop from renal transplant, anticoagulation not added.
-Currently in slow, typical atrial flutter (atrial rate 240-250 bpm) with 2:1 conduction.
-Rate control with amiodarone gtt, IV metoprolol. Intolerant of diltiazem.
-[id number] = 3 (HTN and age x 2).
-Currently on heparin. We will need to assess for ferry terminal supervisor AC 2/2 PE.
#Cardiomyopathy
-New diagnosis.
-LVEF 29%.
-Etiology uncertain with multiple potential sources.
-No role for cardiac catheterization.
-GDMT as hemodynamics/BP will tolerate:
-Diuretics: Volume managed with CENTRIFUGAL WAX MOLDER.
-Beta debbie: Metoprolol succinate 25 mg daily.
-ACEI/ARB/ARNi: On hold due to ESRD, hypotension.
-MRA: On hold due to ESRD, hypotension.
-SGLT2i: On hold due to ESRD.
-ICD: Not currently indicated.
#ESRD
#Progressive functional decline
#Progressive memory decline
#Long standing HTN
#Hx of ETOH, heavy in past
#Sacral Decub
Subjective/Interval History:
WBC rising, now 17.3 (previously 15.1).
Palliative care consulted.
Echo now shows global hypokinesis, LVEF 29% with low flow, low gradient .
Patient able to acknowledge he is in [facility], becomes tangential after that.
DATA:
TTE, 11/23/2024:
SUMMARY
1. Severely reduced left ventricular systolic function with global hypokinesis. LVEF 29%.
2. Moderate concentric left ventricular hypertrophy.
3. Low-flow low gradient aortic stenosis (peak/mean 28/18 mmHg, EDDIE 0.9 cm², DVI 0.3 cm).
4. Mild mitral stenosis.
5. Mild mitral regurgitation.
6. No prior study available for comparison.
Physical Exam
Vital Signs/Labs
Vital Signs
Temp Pulse Resp BP Pulse Ox
37.4 C 103 18 96/71 100
11/24/24 07:05 11/24/24 06:07 11/24/24 06:07 11/24/24 06:07 11/24/24 06:07
11/22/24 11/23/24 11/24/24
11:59 11:59 11:59
Actual Weight 69.598 kg 70.335 kg
11/24/24 03:22
11/24/24 03:22
APTT 54.9 Sec (23.4-35.0) H 11/24/24 01:53
Magnesium 2.2 mg/dl (1.6-2.3) 11/23/24 06:10
LAB Results
11/21/24 11/21/24 11/22/24
14:13 21:49 03:43
Troponin I 0.024 0.021 0.021
11/22/24
13:00
Troponin I Cancelled
Physical Exam
Constitutional: No acute distress and Comfortable
EENT: Anicteric and Moist mucous membranes
Cardiovascular: Pedal edema is absent, JVD pressure is normal, S1S2 is normal and Murmur/rub/gallop absent
Respiratory: Respiratory effort normal, Lungs clear to auscul., Wheeze Absent, Crackles Absent and Rhonchi Absent
GI: Soft, Distention absent, Flat, Non tender and Normal bowel sounds
Neuro/Psych: AO x 3
Data Reviewed
-
Date of Service: November 24, 2024
Medical Decision Making: Reviewed Test Results, Independent Historian Assessment and Test Interpretation
EKG: Tracing Personally Visualized and interpreted and Report Reviewed by me
Echo: Report Reviewed by me
X-Ray/CT/US/MRI/NUC/PET: Image Personally Visualized and interpreted and Report Reviewed by me
Medical Tests (PFT, Pathology etc): Image Personally Visualized and interpreted and Report Reviewed by me
Labs: Labs Reviewed by me
Old Records: Reviewed
[2024-11-24] MEDS: CORDARONE 518 MG IV (10:59)
--- NOTE | 2024-11-24 11:08 | CM ---
Reviewed the chart notes. CM continues to be available to patient/family and is monitoring medical plan for needs at discharge.
Plan: Discharge back to [facility] when medically stable. No precert required.
[2024-11-24 11:32] LABS: APTT 143.1 Sec (23.4-35.0)
[2024-11-24] MEDS: TOPROL XL 25 MG PO (12:15)
[2024-11-24] MEDS: ULORIC 40 MG PO (12:16)
[2024-11-24] MEDS: MAGNESIUM OXIDE PO ×2 (12:16→19:29)
[2024-11-24] MEDS: NEURONTIN 100 MG PO (12:17)
[2024-11-24] MEDS: SANTYL OINTMENT 1 APPLIC TOPICAL (12:18)
[2024-11-24] MEDS: PROGRAF 2 MG PO (12:18)
[2024-11-24] MEDS: PEPCID 20 MG PO (12:18)
[2024-11-24] MEDS: RENVELA PO ×2 (12:19→17:16)
[2024-11-24] MEDS: RENVELA 800 MG PO (12:19)
[2024-11-24] MEDS: LOPRESSOR 5 MG IV (14:26)
[2024-11-24 14:40] LABS: Cortisol, Random 25.4 ug/dl
--- NOTE | 2024-11-24 14:50 | PTOTSP ---
Speech Language Pathology
VIDEOFLUOROSCOPIC SWALLOWING EXAMINATION (VSE) completed. Study was limited given pt positioning/cognition. During study, pt unable to hold up head with need for INVESTIGATOR CLAIMS to manually hold head in upright position. Not responding verbally to INVESTIGATOR CLAIMS for
approximately 1 minute with no blink to threat. Then returned to baseline. Stable vital signs. RN and MD notified.
Mod-severe oral and severe pharyngeal dysphagia noted. Silent aspiration of thin liquids and puree noted. Other consistencies deferred given severity of swallow function.
Recommend:
(1) Strict NPO
(2) Oral care 4x/day with suctioning as needed
(3) Will consider Aspiration Risk Hydration Protocol (ARHP) on next session, as intermittently responsive during study
(4) Non-oral meds
(5) GOC discussion
(6) INVESTIGATOR CLAIMS to continue to follow
--- NOTE | 2024-11-24 16:08 | PTCARENOTE ---
Patient back from VSE. It is recommended for pt to be NPO.
--- NOTE | 2024-11-24 16:12 | W.PN.HOSP.TC ---
Today's Communication/Plan
-
CW IV ABX and IV heparin
NPO
Discuss alt feeding
Assessment / Plan
Assessment / Plan
#chest pain admitting symptom
-Patient told me it was left-sided when it started ;remains asymptomatic today.
- Poor historian
- Various possibilities-rapid ventricular rate, PE , right pleural effusion with past pneumonia
-Continue with amiodarone for rapid ventricular rate
-Continue with IV heparin for DVT/PE
# Sepsis possibilities include right lung pneumonia and sacral decubitus ulcer
- Hemodynamics remained stable
- WBCs are improved ;bump up today noted
- Continue with wound care
- Not bacteremic and MRSA screen negative. Stop IV vancomycin. Continue with Zosyn
# Extensive right leg DVT with PE. No right ventricular strain on the CT chest. Hemodynamically stable.
- Continue with IV heparin and switch to oral Eliquis once oral intake is established
# Large right pleural effusion-unclear if secondary to underlying pneumonia or PE. Exudative by protein criteria . CX neg and PH doesnt suggest empyema. Follow for now
# Anemia of chronic disease
- Initial hemoglobin was 10 and down in 8s which has been stable
- No obvious external bleeding. Heme test still pending.Stool brown.
- Iron studies suggest anemia of chronic disease
- Continue to follow H&H for now and aim to keep it more than 7.
#chornic hyponatremia
#ESRD on Dialysis.
# History of kidney transplant
- Continue with hemodialysis support
- Continue with his home regimen and fluid restriction.
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
# Essential Hypertension - stable, Continue metoprolol, Norvasc
#Insomnia - chronic, continue melatonin
# Hyperlipidemia - Chronic - continue statin
# Gout - chronic - continue Febuxostat
#neuropathy - chronic - Cont gabapentin
DNR
DVT ppx: SC heparin
DW SPT - Failed VSE
EX earlier had expressed no PEG tube .Will dw ex RE: GOC
Discussed with Chelsea ex- and current POA 11/22. Patient was listed [facility] per records and also per retirement physician who was in touch with me yesterday. Chelsea states that with the chest pain as a symptom she could not keep him at the nursing
home and suffer so asked for hospitalization.
She understands the complex nature of his medical diseases including organ failure needing hemodialysis support. She tells me that Ulises has not been out of bed now at retirement and physical therapy was stopped as he was not progressing well.
I encouraged her to really consider the goals of care-prognosis is poor with organ dysfunction and now pretty much bedbound status.
Her goals is no suffering and no pain. Remains DNR/DNI. She is not sure what to do with dialysis support.
Total time spent on today's encounter was 52 minutes which included time spent in counseling the patient/family regarding diagnosis and treatment plan as listed above, goals of care, and symptom management. Case was discussed with nursing staff,
specialists, and care coordinators/case management. All labs and imaging personally reviewed by me. Remainder the time spent in detailed review of previous records, lab data, imaging, and other medical provider documentation.
Anticipated Discharge: > 48 hours
Subjective/Interval History
-
Date of Service: November 24, 2024
Pt alert but remains congnitively impaired.
Denies SOB or CP.
No N/V.
Objective Data
-
Labs:
Laboratory Results
11/24/24 11/24/24 11/24/24
03:22 11:01 19:00
APTT 143.1 H Pending
Sodium 131 L
Potassium 3.8
Chloride 98
Carbon Dioxide 28
BUN 40 H
Creatinine 3.8 H
Glucose 98
Calcium 7.8 L
Vital Signs:
Vital Signs
Temp Pulse Resp BP Pulse Ox
99.4 F 124 19 148/85 100
11/24/24 07:05 11/24/24 12:00 11/24/24 12:00 11/24/24 12:00 11/24/24 09:51
I&O
11/23/24 11/24/24 11/25/24
06:59 06:59 06:59
Intake Total 710 / 710 1160 / 1160
Balance 710 / 710 1160 / 1160
Physical Exam
-
General: No Apparent Distress
Respiratory: Non Labored Respirations
Cardiac: S1/S2, Irregular Rhythm and Tachycardic
GI: Soft
Neuro: Awake and Alert; Negative Oriented
Psych: Calm and Confused; Negative Agitated
Data Reviewed
-
Labs: Labs Reviewed by me
[2024-11-24] MEDS: MELATONIN PO (19:29)
[2024-11-24] MEDS: NEURONTIN PO (19:29)
[2024-11-24] MEDS: LIPITOR PO (19:29)
[2024-11-24] MEDS: OFIRMEV 100 IV (19:49)
[2024-11-24 19:56] LABS: APTT 82.0 Sec (23.4-35.0)
[2024-11-24] MEDS: HEPARIN 25000 UNITS/250 ML IV (20:43)
[2024-11-25] VITALS (13 sets, daily range): BP systolic 99–139; BP diastolic 28–82; BMI 20.9
[2024-11-25] MEDS: ZOSYN 50 IV ×2 (03:07→14:01)
--- NOTE | 2024-11-25 03:17 | PTCARENOTE ---
pt aaox3, much more alert and responsive than previous shift. ST on monitor. Remains on heparin and amio gtt. Leg wounds cleaned and redressed. Sacral stage 3 wound cleaned and redressed. Pt NPO, no sips or meds. Unable to give scheduled midodrine,
but BP stable throughout the night. Last BP 133/53. All other VSS. HR elevated 110-120s, unchanged from previous shifts. Pt c/o 12/01 pain in L hip. INJECTION MOLDING MACHINE TENDER notified that he has no IV pain medications ordered. Order placed for 0.25mg dilaudid IV. Care
ongoing.
[2024-11-25 03:24] LABS: Hematocrit 26.1 % (39.0-52.0); Hemoglobin 8.2 g/dL (13.0-18.0); Mean Corp Hgb Conc. 31.4 g/dL (33.0-37.0); Mean Corpuscular Volume 91.6 fL (80.0-94.0); Platelet Count 328 10^3/uL (130-400); Red Cell Dist. Width 19.3 % (11.5-14.5)
[2024-11-25 03:32] LABS: APTT 61.5 Sec (23.4-35.0)
[2024-11-25 03:43] LABS: Blood Urea Nitrogen 21 mg/dl (9-20); Calcium 7.7 mg/dl (8.4-10.2); Carbon Dioxide 29 mmol/L (22-30); Chloride 98 mmol/L (98-107); Estimated Creatinine Clearance 25 ml/min; Glucose 100 mg/dl (70-99); Potassium 3.9 mmol/L (3.5-5.1); Sodium 130 mmol/L (135-145); eGFR 25.98
[2024-11-25] MEDS: DILAUDID 0.25 MG IV (03:49)
[2024-11-25] MEDS: HEPARIN 5600 UNITS IV ×2 (03:50→20:02)
--- NOTE | 2024-11-25 07:54 | W.PN.CD ---
Today's Communication / Plan
-
Cont IV amio and metop
Pending GOC
HRs have stubbornly been around 120 and consideration for possible NUBIA DCCV if necessary pending GOC
Impression / Plan
-
Impression/Plan: 74 y/o male with ESRD s/p failed renal TX, now on HD, AF, HTN, dementia with profound clinical decline and a sacral decubitus ulcer admitted from [facility] with 'chest pain' but now asymptomatic, but found to meet SIRS/sepsis
criteria, subsequently diagnosed with acute PE.
#Presumed Sepsis
-Acute, threat to life.
-Etiology uncertain with multiple potential sources of infection (tunneled line, sacral decubitus ulcer, PNA with pleural effusion).
-Thoracentesis for 1100 mL of straw colored fluid (borderline positive Light's criteria: protein ratio = 0.5; LDH ratio = 0.52).
-Vancomycin discontinued. Piperacillin-tazobactam continues.
-Remains hypotensive in spite of treatment of infection and BP augmentation with midodrine.
-Check cortisol level.
-Culture data negative to date.
#Chest pain he was initially seen for atypical chest pain.
-Currently denies.
-Troponin 0.021.
-Likely 2/2 to PE.
#PE/RLE DVT
-Acute, threat to life.
-Continue heparin gtt.
-senior care anticoagulation? This will depend on treatment trajectory.
#Atrial flutter
-Duration unknown.
-Had brief AFib periop from renal transplant, anticoagulation not added.
-HRs have been 100-120; currently 120
-Rate control with amiodarone gtt, IV metoprolol. Intolerant of diltiazem. BPs are marginal
-[id number] = 3 (HTN and age x 2).
-Currently on heparin. We will need to assess for intermediate designer AC 2/2 PE.
- pending GOC may need NUBIA DCCV prior to dc
#Cardiomyopathy
-New diagnosis.
-LVEF 29%.
-Etiology uncertain with multiple potential sources.
-No role for cardiac catheterization.
-GDMT as hemodynamics/BP will tolerate:
-Diuretics: Volume managed with COMMERCIAL PROPERTY MANAGER.
-Beta debbie: Metoprolol succinate 25 mg daily.
-ACEI/ARB/ARNi: On hold due to ESRD, hypotension.
-MRA: On hold due to ESRD, hypotension.
-SGLT2i: On hold due to ESRD.
-ICD: Not currently indicated.
#ESRD
#Progressive functional decline
#Progressive memory decline
#Long standing HTN
#Hx of ETOH, heavy in past
#Sacral Decub
Subjective/Interval History:
Appears more awake today then previously; but confused oriented to person and place? but not year/time
DATA:
TTE, 11/23/2024:
SUMMARY
1. Severely reduced left ventricular systolic function with global hypokinesis. LVEF 29%.
2. Moderate concentric left ventricular hypertrophy.
3. Low-flow low gradient aortic stenosis (peak/mean 28/18 mmHg, EDDIE 0.9 cm², DVI 0.3 cm).
4. Mild mitral stenosis.
5. Mild mitral regurgitation.
6. No prior study available for comparison.
Physical Exam
Vital Signs/Labs
Vital Signs
Temp Pulse Resp BP Pulse Ox
96.8 F L 119 8 99/54 100
11/25/24 03:00 11/25/24 06:00 11/25/24 04:00 11/25/24 06:00 11/25/24 06:00
11/24/24 11/25/24 11/26/24
06:59 06:59 06:59
Actual Weight 153 lb 10.595 oz
11/25/24 03:06
11/25/24 03:06
APTT 61.5 Sec (23.4-35.0) H 11/25/24 03:06
Magnesium 2.2 mg/dl (1.6-2.3) 11/23/24 06:10
LAB Results
11/22/24
13:00
Troponin I Cancelled
Physical Exam
Constitutional: No acute distress and Confusion
EENT: Anicteric
Cardiovascular: Pedal edema is absent and Rhythm/rate is irregular
Respiratory: Respiratory effort normal and Lungs clear to auscul.
GI: Soft
Neuro/Psych: Alert and Oriented (to person )
Data Reviewed
-
Date of Service: November 25, 2024
Medical Decision Making: Reviewed Test Results
EKG: Tracing Personally Visualized and interpreted (a flutter)
Echo: Report Reviewed by me
Labs: Labs Reviewed by me
[2024-11-25] MEDS: TOPROL XL PO (07:58)
[2024-11-25] MEDS: MAGNESIUM OXIDE PO ×2 (07:58→19:33)
[2024-11-25] MEDS: PROGRAF PO (07:58)
[2024-11-25] MEDS: NEURONTIN PO ×2 (07:58→21:15)
[2024-11-25] MEDS: RENVELA PO ×3 (07:58→17:02)
[2024-11-25] MEDS: ULORIC PO (07:59)
[2024-11-25] MEDS: SANTYL OINTMENT TOPICAL (09:51)
--- NOTE | 2024-11-25 09:55 | W.PN.HOSP.TC ---
Today's Communication/Plan
-
Continue with IV heparin till oral intake is established
Continue with IV amiodarone
Palliative care team trying to reach family for goals of care discussion.
Assessment / Plan
Assessment / Plan
#chest pain admitting symptom
-Patient told me it was left-sided when it started ;remains asymptomatic since admission.
- Poor historian
- Various possibilities-rapid ventricular rate, PE , right pleural effusion with past pneumonia
-Continue with amiodarone for rapid ventricular rate
-Continue with IV heparin for DVT/PE
# Sepsis possibilities include right lung pneumonia and sacral decubitus ulcer
- Hemodynamics remained stable
- WBCs are improved
- Continue with wound care
- Not bacteremic and MRSA screen negative. Continue with Zosyn
# Extensive right leg DVT with PE. No right ventricular strain on the CT chest. Hemodynamically stable.
- Continue with IV heparin and switch to oral Eliquis once oral intake is established
# Large right pleural effusion-unclear if secondary to underlying pneumonia or PE. Exudative by protein criteria . CX neg and PH doesnt suggest empyema. Follow for now
#Atrial flutter with RVR-unknown duration-noted in the post renal transplant situation per cardiology note.[id number]-LDOv score is at least 3 with hypertension and age. Continue with IV amiodarone per cardiology. [place] too ill to add oral
anticoagulation but is on IV heparin for DVT/PE.
#New cardiomyopathy-patient has findings of EF of 29% which is new to him. Continue with fluid management with hemodialysis. No plans for cardiac catheterization. Etiology uncertain. GDMT medications per cardiology.
#Large sacral decubitus etspg-zpcbtdlrete-qfrmzzce with wound care till goals of care are established.
# Anemia of chronic disease
- Initial hemoglobin was 10 and down in 8s which has been stable
- No obvious external bleeding. Heme test still pending.Stool brown.
- Iron studies suggest anemia of chronic disease
- Continue to follow H&H for now and aim to keep it more than 7.
#chornic hyponatremia
#ESRD on Dialysis.
# History of kidney transplant
- Continue with hemodialysis support
- Continue with his home regimen and fluid restriction.
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
# Essential Hypertension - stable, Continue metoprolol, Norvasc
#Insomnia - chronic, continue melatonin
# Hyperlipidemia - Chronic - continue statin
# Gout - chronic - continue Febuxostat
#neuropathy - chronic - Cont gabapentin
DNR
DVT ppx: SC heparin
DW SPT - Failed VSE
EX earlier had expressed no PEG tube .
Discussed with RN today
Palliative care involved. Await goals of care discussions with ex-/family
Discussed with Chelsea ex- and current POA 11/22. Patient was listed D[facility] per records and also per intermediate physician who was in touch with me yesterday. Chelsea states that with the chest pain as a symptom she could not keep him at the nursing
home and suffer so asked for hospitalization.
She understands the complex nature of his medical diseases including organ failure needing hemodialysis support. She tells me that Ulises has not been out of bed now at intermediate and physical therapy was stopped as he was not progressing well.
I encouraged her to really consider the goals of care-prognosis is poor with organ dysfunction and now pretty much bedbound status.
Her goals is no suffering and no pain. Remains DNR/DNI. She is not sure what to do with dialysis support.
Total time spent on today's encounter was 52 minutes which included time spent in counseling the patient/family regarding diagnosis and treatment plan as listed above, goals of care, and symptom management. Case was discussed with nursing staff,
specialists, and care coordinators/case management. All labs and imaging personally reviewed by me. Remainder the time spent in detailed review of previous records, lab data, imaging, and other medical provider documentation.
Anticipated Discharge: > 48 hours
Subjective/Interval History
-
Date of Service: November 25, 2024
Patient today looks brighter. He is alert and oriented. Follows all commands.
Today he knows he is in the hospital but could not name it. Does not seems to understand why he is in the hospital.
Denies any further chest pain or shortness of breath. No nausea vomiting. States appetite is okay.
He realizes that he is on hemodialysis but cannot tell me how long.
Since admission he has displays cognitive impairment. No given diagnosis of dementia.
When questioned about Chelsea, he said she is ex- but they still acts like and and she helps with medical decisions. He also has a son and no other children.
Objective Data
-
Labs:
Laboratory Results
11/25/24 11/25/24
03:06 09:55
WBC 14.5 H
Hgb 8.2 L
Hct 26.1 L
Plt Count 328
APTT 61.5 H Pending
Sodium 130 L
Potassium 3.9
Chloride 98
Carbon Dioxide 29
BUN 21 H
Creatinine 2.5 H
Glucose 100 H
Calcium 7.7 L
Vital Signs:
Vital Signs
Temp Pulse Resp BP Pulse Ox
98.4 F 119 8 99/54 100
11/25/24 07:10 11/25/24 06:00 11/25/24 04:00 11/25/24 06:00 11/25/24 06:00
I&O
11/24/24 11/25/24 11/26/24
06:59 06:59 06:59
Intake Total 1160 / 1160 925 / 925
Balance 1160 / 1160 925 / 925
Review of Systems
-
Unable to obtain full review of systems at this time due to: Other (Cognitive impairment)
Physical Exam
-
General: No Apparent Distress
Respiratory: Clear to Auscultation (Anteriorly) and Non Labored Respirations; Negative Accessory Resp Muscle Use
Cardiac: S1/S2, Irregular Rhythm and Tachycardic
GI: Soft and Nontender
Neuro: Awake, Alert and Oriented (Self only)
Psych: Calm and Confused; Negative Agitated
Data Reviewed
-
Medical Tests (Nuc Med, Echo etc): Report Reviewed by me (Echocardiogram)
Labs: Labs Reviewed by me
[2024-11-25 10:39] LABS: APTT > 200.0 Sec (23.4-35.0)
--- NOTE | 2024-11-25 10:51 | W.PN.NEPH.PH ---
Today's Communication / Plan
-
Dialysis tomorrow
Orders provided
Assessment/Plan
-
Impression:
Chest pain tachycardia hypoxia
Right lower leg DVT
ESRD MWF ([facility])
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
Hypertension
History of failed renal transplant from 2021 (remains on low-dose tacrolimus)
Hyperphosphatemia
Anemia
Plan:
HD tomorrow,orders provided
AVF not functional, CVC functioning
renal diet and FR
Currently maintained on unfractionated heparin for strong suspicion of pulmonary embolus
Maintain sevelamer for hyperphosphatemia
Cultures negative
Escalate SONJA dosage for anemia
BP soft on midodrine
-
-
Date of Service: November 25, 2024
CC / HPI / ROS
-
Chief Complaint:
ESRD, failed KTP
History of Present Illness:
ESRD Friday
no fever
BP soft on midodrine
Remains on heparin drip
Review of Systems:
no cp or sob at rest
no n/v
Labs
-
Labs:
WBC 14.5 10^3/uL (4.8-10.8) H 11/25/24 03:06
RBC 2.85 10^6/uL (4.70-6.10) L 11/25/24 03:06
Hgb 8.2 g/dL (13.0-18.0) L 11/25/24 03:06
Hct 26.1 % (39.0-52.0) L 11/25/24 03:06
Plt Count 328 10^3/uL (130-400) 11/25/24 03:06
Sodium 130 mmol/L (135-145) L 11/25/24 03:06
Potassium 3.9 mmol/L (3.5-5.1) 11/25/24 03:06
Chloride 98 mmol/L (98-107) 11/25/24 03:06
Carbon Dioxide 29 mmol/L (22-30) 11/25/24 03:06
BUN 21 mg/dl (9-20) H 11/25/24 03:06
Creatinine 2.5 mg/dL (0.7-1.3) H 11/25/24 03:06
eGFR 25.98 11/25/24 03:06
Glucose 100 mg/dl (70-99) H 11/25/24 03:06
Calcium 7.7 mg/dl (8.4-10.2) L 11/25/24 03:06
Albumin 2.6 g/dl (3.5-5.0) L 11/21/24 14:05
Physical Exam
-
Vital Signs:
Vital Signs
Temp Pulse Resp BP Pulse Ox
98.4 F 119 8 99/54 99
11/25/24 07:10 11/25/24 06:00 11/25/24 04:00 11/25/24 06:00 11/25/24 08:11
Cardiovascular:: Regular rate and rhythm
Respiratory:: Bilateral: Coarse
Lung Excursion:: Normal
Abdomen:: Nontender and Soft
Bowel Sounds:: Normal
Extremity Edema:: +1: Bilateral:
Jacob Catheter: No
--- NOTE | 2024-11-25 11:26 | W.PN.UPDATE ---
Update Note
Progress Note Update
attempted to call patients ex Chelsea again for the third time, no answer. Again left a message for call back. Also called patients listed son Johnson, no answer. Left a message for call back.
Need to verify if Chelsea actually has POA or not before allowing her to make any end of life decisions for patient. Please obtain POA documents if she states she is POA.
--- NOTE | 2024-11-25 13:14 | CM ---
Addendum entered by Dilshad Umanzor 11/25/24 15:50:
Johnson returned call. He said he had POA until last winter when he tried to 302 his father because he was living in [facility] and in his own feces. His father revoked his POA. Johnson received a letter from an contract attorney stating so. He does not want to
be involved in decision making anymore and understands Chelsea will then make the decisions. This case supervisor requested Johnson reiterate the above to attending. He said he will be available to speak with him. notified and called Johnson
and left message, Johnson # is [phone].
Addendum entered by Dilshad Umanzor 11/25/24 13:37:
Left message for son, Johnson, requesting return call.
Addendum entered by Dilshad mUanzor 11/25/24 13:28:
POA heirarchy in [place] goes to UNLESS there is a divorce action pending. Which there evidently is. Son is from previous marriage.
Original Note:
I spoke with Chelsea. She is currently to patient but they were in the process of divorce. No decree. The son, Johnson is estranged from father. Chelsea has notified Johnson that patient is in the hospital but he has not responded to her. She
would like to be notified if he calls or visits in the hospital.
--- NOTE | 2024-11-25 14:39 | PTCARENOTE ---
Caring for pt throughout the day. Aox2-3. Slow speech, forgetful and flat. ST on tele monitor. Heparin and Amio gtts infusing as ordered, see worklist. Dressings C/D/I. Strict NPO, hydration protocol only. Pt updated on plan of care. Safe
environment maintained. Call gilmore within reach.
[2024-11-25] MEDS: CORDARONE 518 MG IV (18:04)
[2024-11-25 19:48] LABS: APTT 53.6 Sec (23.4-35.0)
[2024-11-25] MEDS: LIPITOR PO (21:15)
[2024-11-25] MEDS: MELATONIN PO (21:15)
[2024-11-25] MEDS: LOPRESSOR 5 MG IV (22:17)
[2024-11-26] VITALS (38 sets, daily range): BP systolic 75–223; BP diastolic 25–206; BMI 21.1
[2024-11-26] MEDS: HEPARIN 25000 UNITS/250 ML IV (01:21)
[2024-11-26] MEDS: ZOSYN 50 IV ×2 (02:21→16:26)
[2024-11-26] MEDS: OFIRMEV 100 IV (03:01)
[2024-11-26 03:11] LABS: APTT > 200 Sec (23.4-35.0)
--- NOTE | 2024-11-26 05:14 | PTCARENOTE ---
Amio and heparin gtts remain intact. PTT >200. TIG WELDER notified per protocol. Pt unable to take oral medications d/t NPO status. IV lopressor given per MAR for HR >120. Bed alarm in place for pt safety. Care ongoing.
[2024-11-26 06:11] LABS: Hematocrit 24.8 % (39.0-52.0); Hemoglobin 7.8 g/dL (13.0-18.0); Mean Corp Hgb Conc. 31.5 g/dL (33.0-37.0); Mean Corpuscular Volume 91.9 fL (80.0-94.0); Platelet Count 291 10^3/uL (130-400); Red Cell Dist. Width 19.6 % (11.5-14.5)
[2024-11-26 06:35] LABS: Blood Urea Nitrogen 29 mg/dl (9-20); Calcium 7.6 mg/dl (8.4-10.2); Carbon Dioxide 27 mmol/L (22-30); Chloride 97 mmol/L (98-107); Estimated Creatinine Clearance 18 ml/min; Glucose 87 mg/dl (70-99); Potassium 3.9 mmol/L (3.5-5.1); Sodium 129 mmol/L (135-145); eGFR 17.35
--- NOTE | 2024-11-26 08:12 | W.PN.CD ---
Today's Communication / Plan
-
Continue IV amiodarone and IV heparin while unable to take p.o.
Add GDMT as tolerated pending goals of care
Impression / Plan
-
Impression/Plan: 74 y/o male with ESRD s/p failed renal TX, now on HD, AF, HTN, dementia with profound clinical decline and a sacral decubitus ulcer admitted from [facility] with 'chest pain' but now asymptomatic, but found to meet SIRS/sepsis
criteria, subsequently diagnosed with acute PE.
#Atrial flutter
-Duration unknown.
-Had brief AFib periop from renal transplant, anticoagulation not added.
-HRs have been 100-120; currently 120
-Rate control with amiodarone gtt, IV metoprolol. Intolerant of diltiazem. Unable to take PO
-[id number] = 3 (HTN and age x 2).
-Currently on heparin. We will need to assess for intermediate AC 2/2 PE.
-Pending GOC may need NUBIA DCCV prior to dc
#Cardiomyopathy
-New diagnosis.
-LVEF 29%.
-Etiology uncertain with multiple potential sources.
-No role for cardiac catheterization.
-GDMT as hemodynamics/BP will tolerate:
-Diuretics: Volume managed with FIRE MANAGEMENT OFFICER.
-Beta debbie: Metoprolol succinate 25 mg daily.
-ACEI/ARB/ARNi: On hold due to ESRD, NPO
-MRA: On hold due to ESRD, NPO
-SGLT2i: On hold due to ESRD.
-ICD: Not currently indicated.
#Presumed Sepsis
-Acute, threat to life.
-Etiology uncertain with multiple potential sources of infection (tunneled line, sacral decubitus ulcer, PNA with pleural effusion).
-Thoracentesis for 1100 mL of straw colored fluid (borderline positive Light's criteria: protein ratio = 0.5; LDH ratio = 0.52).
-Abx per primary team
-Culture data negative to date.
#PE/RLE DVT
-Acute, threat to life.
-Continue heparin gtt.
-FDC anticoagulation? This will depend on treatment trajectory.
#Chest pain he was initially seen for atypical chest pain.
-Currently denies.
-Troponin 0.021.
-Likely 2/2 to PE.
#ESRD
#Progressive functional decline
#Progressive memory decline
#Long standing HTN
#Hx of ETOH, heavy in past
#Sacral Decub
Subjective/Interval History:
No pain. Asking if Eagles played.
DATA:
TTE, 11/23/2024:
SUMMARY
1. Severely reduced left ventricular systolic function with global hypokinesis. LVEF 29%.
2. Moderate concentric left ventricular hypertrophy.
3. Low-flow low gradient aortic stenosis (peak/mean 28/18 mmHg, EDDIE 0.9 cm², DVI 0.3 cm).
4. Mild mitral stenosis.
5. Mild mitral regurgitation.
6. No prior study available for comparison.
Physical Exam
Vital Signs/Labs
Vital Signs
Temp Pulse Resp BP Pulse Ox
97.5 F 118 17 112/43 96
11/26/24 07:35 11/26/24 06:00 11/26/24 06:00 11/26/24 06:00 11/26/24 06:00
11/25/24 11/26/24 11/27/24
06:59 06:59 06:59
Actual Weight 153 lb 10.595 oz 155 lb 5 oz
11/26/24 05:48
11/26/24 05:48
APTT > 200 Sec (23.4-35.0) H* 11/26/24 02:27
Magnesium 2.2 mg/dl (1.6-2.3) 11/23/24 06:10
Physical Exam
Constitutional: No acute distress and Comfortable
Cardiovascular: Rhythm & rate is regular, Pedal edema present, Systolic murmur present and S1S2 is normal
Respiratory: Respiratory effort normal and Lungs clear to auscul.
Data Reviewed
-
Date of Service: November 26, 2024
Medical Decision Making: Reviewed Test Results, Independent Historian Assessment, Test Interpretation and Review of Case with other Provider
EKG: Tracing Personally Visualized and interpreted
Echo: Report Reviewed by me
X-Ray/CT/US/MRI/NUC/PET: Report Reviewed by me
Labs: Labs Reviewed by me
[2024-11-26] MEDS: MAGNESIUM OXIDE PO (08:25)
[2024-11-26] MEDS: NEURONTIN PO (08:26)
[2024-11-26] MEDS: PEPCID PO (08:27)
[2024-11-26] MEDS: PROGRAF PO (08:30)
[2024-11-26] MEDS: RENVELA PO ×4 (08:30→18:39)
[2024-11-26] MEDS: TOPROL XL PO (08:31)
[2024-11-26] MEDS: ULORIC PO (08:31)
--- NOTE | 2024-11-26 10:22 | W.PN.HOSP.TC ---
Today's Communication/Plan
-
CW IV amio and IV heparin
VSE
Await GOC disussioncs with family
Palliative care following
Assessment / Plan
Assessment / Plan
#chest pain
Asymptomatic now
- Various possibilities-rapid ventricular rate, PE , right pleural effusion with past pneumonia
-Continue with amiodarone for rapid ventricular rate
-Continue with IV heparin for DVT/PE
# Sepsis possibilities include right lung pneumonia and sacral decubitus ulcer
- Hemodynamics remained stable
- WBCs are improved
- Continue with wound care
- Not bacteremic and MRSA screen negative. Continue with Zosyn
# Extensive right leg DVT with PE. No right ventricular strain on the CT chest. Hemodynamically stable.
- Continue with IV heparin and switch to oral Eliquis once oral intake is established
# Large right pleural effusion-unclear if secondary to underlying pneumonia or PE. Exudative by protein criteria . CX neg and PH doesnt suggest empyema. Follow for now
#Atrial flutter with RVR-unknown duration-noted in the post renal transplant situation per cardiology note.[id number] score is at least 3 with hypertension and age. Continue with IV amiodarone per cardiology. [place] too ill to add oral
anticoagulation but is on IV heparin for DVT/PE.
#New cardiomyopathy-patient has findings of EF of 29% which is new to him. Continue with fluid management with hemodialysis. No plans for cardiac catheterization. Etiology uncertain. GDMT medications per cardiology.
#Large sacral decubitus cjbcm-pmjwzlrdnfd-twwjsvky with wound care till goals of care are established.
# Anemia of chronic disease
- Initial hemoglobin was 10 and down in 8s which has been stable
- No obvious external bleeding. Heme test still pending.Stool brown.
- Iron studies suggest anemia of chronic disease
- Continue to follow H&H for now and aim to keep it more than 7.
#chornic hyponatremia
#ESRD on Dialysis.
# History of kidney transplant
- Continue with hemodialysis support
- Continue with his home regimen and fluid restriction.
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
# Essential Hypertension - stable, Continue metoprolol, Norvasc
#Insomnia - chronic, continue melatonin
# Hyperlipidemia - Chronic - continue statin
# Gout - chronic - continue Febuxostat
#neuropathy - chronic - Cont gabapentin
DNR
DVT ppx: SC heparin
Failed VSE
EX earlier had expressed no PEG tube .
Discussed with RN
DW SPT - feels stronger and that he should be reexamined for swallow function -VSE recommended
Palliative care involved. Await goals of care discussions with ex-/family-they are not able to get in touch with family
DNR/DNI
Total time spent on today's encounter was 52 minutes which included time spent in counseling the patient/family regarding diagnosis and treatment plan as listed above, goals of care, and symptom management. Case was discussed with nursing staff,
specialists, and care coordinators/case management. All labs and imaging personally reviewed by me. Remainder the time spent in detailed review of previous records, lab data, imaging, and other medical provider documentation.
Anticipated Discharge: > 48 hours
Subjective/Interval History
-
Date of Service: November 26, 2024
Patient is alert and oriented self today.
He is angry that he is not getting any food. He feels very hungry.' Want to get into my car and drive to the nearest restaurant and get some food'
Denies nausea or vomiting. Denies shortness of breath.
Not much conversive today. Does not seems that he wants to be bothered.
'i am done with all this' when asked subsequent question what he means by that i didnt get an answer.
Objective Data
-
Labs:
Laboratory Results
11/26/24 11/26/24 11/26/24
02:27 05:48 11:00
WBC 15.9 H
Hgb 7.8 L
Hct 24.8 L
Plt Count 291
APTT > 200 H* Pending
Sodium 129 L
Potassium 3.9
Chloride 97 L
Carbon Dioxide 27
BUN 29 H
Creatinine 3.5 H
Glucose 87
Calcium 7.6 L
Vital Signs:
Vital Signs
Temp Pulse Resp BP Pulse Ox
97.5 F 118 17 112/43 96
11/26/24 07:35 11/26/24 06:00 11/26/24 06:00 11/26/24 06:00 11/26/24 06:00
I&O
11/25/24 11/26/24 11/27/24
06:59 06:59 06:59
Intake Total 925 / 925
Balance 925 / 925
Review of Systems
-
Unable to obtain full review of systems at this time due to: Other (cognitive impariment)
Physical Exam
-
General: No Apparent Distress
Respiratory: Clear to Auscultation (anteriorly) and Non Labored Respirations; Negative Accessory Resp Muscle Use
Cardiac: S1/S2, Irregular Rhythm and Tachycardic
GI: Soft
Neuro: Awake and Alert
Psych: Calm and Confused; Negative Agitated
Data Reviewed
-
Labs: Labs Reviewed by me
[2024-11-26] MEDS: SANTYL OINTMENT TOPICAL (10:34)
[2024-11-26 11:51] LABS: APTT 66.2 Sec (23.4-35.0)
[2024-11-26] MEDS: HEPARIN 2800 UNITS IV (12:27)
[2024-11-26] MEDS: RETACRIT 10000 UNITS IV (13:22)
--- NOTE | 2024-11-26 13:35 | PTCARENOTE ---
Patient began staring off during video swallow. Was unresponsive to stimuli, not following commands, limp, PERRLA@3. VSS. Per KNOT TYING OPERATOR, patient did not aspirate before this happened and reportedly this same episode happened last video swallow. Came to
baseline within about 5 minutes. MD notified, patient now getting HD, head CT scan ordered. Amiodarone and heparin gtt continue to infuse per orders. Will closely monitor.
[2024-11-26] MEDS: ZOSYN IV (15:18)
--- NOTE | 2024-11-26 15:27 | W.PN.NEPH.HD ---
Assessment
-
pt seen during HD
vitals stable
BP are low, could not get midodrine earlier with NPO status , asp risk
he had RR at swallow eval test today
continuing dialysis will be challenging with ongoing issues
cont GOC discussion with family
CVC functions fine
Progress Note - Hemodialysis
-
Date of Service: November 26, 2024
Duration: 30 minutes and 3 hours
Potassium Bath: 3
Calcium Bath: 2.5
Opti-Dialyzer: 160
Ultrafiltration: Other (0.5kg)
Blood Flow: 400
Dialysate Flow: 600
Heparin: no
EPO: [id number]
[2024-11-26] MEDS: FLEXBUMIN 25% FOR HEMODIALYSIS 12.5 GRAMS IV (15:34)
[2024-11-26] MEDS: MANNITOL 25% 12.5 GRAMS IV (15:37)
[2024-11-26] MEDS: HEPARIN 4300 UNITS INTRACATH (15:38)
--- NOTE | 2024-11-26 16:08 | PTOTSP ---
Videofluoroscopic swallow study
Patient presents with mild-moderate oral and at least mild pharyngeal dysphagia, improved compared to last video swallow study 11/24/2024. Cognitive linguistic impairments elevate risk for dysphagia/aspiration. Patient required significant verbal
cueing for swallowing related tasks/initiation throughout this test. Study was discontinued when patient had an episode of staring/not responding verbally and a rapid response was called.
Recommend:
1. IDDSI Level 4 Puree, IDDSI Level 0 Thin Liquids via Cup
2. Medications crushed in puree if medically cleared to do so
3. Strategies: full supervision and assist, PO only when awake/alert, single sips/bites, verbal cues to swallow
4. Oral care 3x daily
5. Dysphagia f/u at the acute care level to determine if/when diet advancement appropriate.
[2024-11-26] MEDS: LOPRESSOR 5 MG IV (17:46)
[2024-11-26 19:17] LABS: APTT 189.9 Sec (23.4-35.0)
[2024-11-26] MEDS: TYLENOL 650 MG PO (19:38)
[2024-11-26] MEDS: MAGNESIUM OXIDE 400 MG PO (19:38)
[2024-11-26] MEDS: CORDARONE 518 MG IV (20:38)
[2024-11-26] MEDS: NEURONTIN 100 MG PO (21:40)
[2024-11-26] MEDS: MELATONIN 6 MG PO (21:40)
[2024-11-26] MEDS: LIPITOR 40 MG PO (21:44)
--- NOTE | 2024-11-26 23:26 | PTCARENOTE ---
Heparin and amio gtts remain in place, see worklist. Pt transported to CT scan and back, accompanied by this RN and a PCT. Pt inc of stool, hygiene care performed. Patient turned Q2. Remains tachycardic on CM. BP stable at this time. Remains stable
on RA. Call gilmore within reach. Bed alarm in place for pt safety. Care ongoing.
[2024-11-27] VITALS (23 sets, daily range): BP systolic 92–145; BP diastolic 32–75; BMI 20.8
[2024-11-27] MEDS: ZOSYN 50 IV ×2 (01:17→14:49)
[2024-11-27 03:52] LABS: Hematocrit 24.6 % (39.0-52.0); Hemoglobin 8.0 g/dL (13.0-18.0); Mean Corp Hgb Conc. 32.5 g/dL (33.0-37.0); Mean Corpuscular Volume 93.5 fL (80.0-94.0); Platelet Count 270 10^3/uL (130-400); Red Cell Dist. Width 20.5 % (11.5-14.5)
[2024-11-27 04:09] LABS: APTT 68.1 Sec (23.4-35.0)
[2024-11-27 04:13] LABS: Blood Urea Nitrogen 17 mg/dl (9-20); Calcium 8.0 mg/dl (8.4-10.2); Carbon Dioxide 28 mmol/L (22-30); Chloride 98 mmol/L (98-107); Estimated Creatinine Clearance 27 ml/min; Glucose 101 mg/dl (70-99); Potassium 3.7 mmol/L (3.5-5.1); Sodium 131 mmol/L (135-145); eGFR 28.71
[2024-11-27] MEDS: HEPARIN 2800 UNITS IV (04:22)
--- NOTE | 2024-11-27 08:43 | W.PN.HOSP.TC ---
Today's Communication/Plan
-
CW IV ABX
CW IV heparin
CW IV amio
GOC discussion today
Assessment / Plan
Assessment / Plan
#chest pain
Asymptomatic now
- Various possibilities-rapid ventricular rate, PE , right pleural effusion with pneumonia
-Continue with amiodarone for rapid ventricular rate
-Continue with IV heparin for DVT/PE
# Sepsis possibilities include right lung pneumonia and sacral decubitus ulcer
- Hemodynamics remained stable
- WBCs now plateaued and had spike of fever last night.
- Continue with wound care and surgical referral based on GOC
- Not bacteremic and MRSA screen negative. Continue with Zosyn
# Extensive right leg DVT with PE. No right ventricular strain on the CT chest. Hemodynamically stable.
- Continue with IV heparin and switch to oral Eliquis once oral intake is established and GOC are finalized
# Large right pleural effusion-unclear if secondary to underlying pneumonia or PE. Exudative by protein criteria . CX neg and PH doesnt suggest empyema. Follow for now
#Atrial flutter with RVR-unknown duration-noted in the post renal transplant situation per cardiology note.[id number] score is at least 3 with hypertension and age. Continue with IV amiodarone per cardiology. [place] too ill to add oral
anticoagulation but is on IV heparin for DVT/PE.
#New cardiomyopathy-patient has findings of EF of 29% which is new to him. Continue with fluid management with hemodialysis. No plans for cardiac catheterization. Etiology uncertain. GDMT medications per cardiology.
#Large sacral decubitus jhfxs-bhcuwndxpmy-uzqkolth with wound care till goals of care are established.
# Anemia of chronic disease
- Initial hemoglobin was 10 and down in 8s which has been stable
- No obvious external bleeding. Heme test still pending.Stool brown.
- Iron studies suggest anemia of chronic disease
- Continue to follow H&H for now and aim to keep it more than 7.
#chornic hyponatremia
#ESRD on Dialysis.
# History of kidney transplant
- Continue with hemodialysis support
- Continue with his home regimen and fluid restriction.
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
# Transient staring spell yesterday - CT head shows small transcortical infarct in right frontal lobe which is new from 2022. Unclear if any symptomatic currently. He has intracranial arterial atherosclerosis which is expected with his renal
disease. Continue with statins.
# Essential Hypertension - stable, Continue metoprolol, Norvasc
#Insomnia - chronic, continue melatonin
# Hyperlipidemia - Chronic - continue statin
# Gout - chronic - continue Febuxostat
#neuropathy - chronic - Cont gabapentin
DNR
DVT ppx: SC heparin
Discussed with RN
Palliative care involved. Await goals of care discussions with ex-/family-they are not able to get in touch with family
Planning to have a family meeting today at noon with Chelsea his .
DNR/DNI
Total time spent on today's encounter was 52 minutes which included time spent in counseling the patient/family regarding diagnosis and treatment plan as listed above, goals of care, and symptom management. Case was discussed with nursing staff,
specialists, and care coordinators/case management. All labs and imaging personally reviewed by me. Remainder the time spent in detailed review of previous records, lab data, imaging, and other medical provider documentation.
Anticipated Discharge: > 48 hours
Subjective/Interval History
-
Date of Service: November 27, 2024
'Where am i?'
' My left shoulder blade hurts'
When I asked him if I can check him out he said I want to go to sleep for an hour and does not interact further.
No overnight events per RN
According to Chelsea's there was not all there and could not much recognize things.
Objective Data
-
Labs:
Laboratory Results
11/27/24 11/27/24
03:44 10:30
WBC 15.1 H
Hgb 8.0 L
Hct 24.6 L
Plt Count 270
APTT 68.1 H Pending
Sodium 131 L
Potassium 3.7
Chloride 98
Carbon Dioxide 28
BUN 17
Creatinine 2.3 H
Glucose 101 H
Calcium 8.0 L
Vital Signs:
Vital Signs
Temp Pulse Resp BP Pulse Ox
98.2 F 123 12 138/36 99
11/27/24 07:44 11/27/24 06:00 11/27/24 06:00 11/27/24 06:00 11/26/24 20:12
I&O
11/26/24 11/27/24 11/28/24
06:59 06:59 06:59
Intake Total 100 / 100
Balance 100 / 100
Physical Exam
-
General: No Apparent Distress
Respiratory: Clear to Auscultation (anteriorly), Non Labored Respirations and Accessory Resp Muscle Use
Cardiac: S1/S2, Irregular Rhythm and Tachycardic
GI: Soft
Neuro: Awake and Alert; Negative Oriented
Psych: Calm and Confused; Negative Agitated
Data Reviewed
-
Labs: Labs Reviewed by me
[2024-11-27] MEDS: PROGRAF 2 MG PO (08:56)
[2024-11-27] MEDS: MAGNESIUM OXIDE 400 MG PO ×2 (08:56→20:27)
[2024-11-27] MEDS: TOPROL XL 25 MG PO (08:56)
[2024-11-27] MEDS: ULORIC 40 MG PO (08:56)
[2024-11-27] MEDS: NEURONTIN 100 MG PO ×2 (08:56→20:28)
[2024-11-27] MEDS: SANTYL OINTMENT 1 APPLIC TOPICAL (08:56)
[2024-11-27] MEDS: RENVELA PO ×3 (08:57→17:03)
[2024-11-27 11:09] LABS: APTT 86.6 Sec (23.4-35.0)
--- NOTE | 2024-11-27 11:49 | W.PN.NEPH.PH ---
Today's Communication / Plan
-
HD Friday
Assessment/Plan
-
Impression:
Chest pain tachycardia hypoxia
Right lower leg DVT
ESRD MWF ([facility] ?)
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
Hypertension
History of failed renal transplant from 2021 (remains on low-dose tacrolimus)
Hyperphosphatemia
Anemia
Plan:
Bp labile on midodrine
BP low during HD so could not get UF well
encourage po intake , asp risk
AVF not functional, CVC functioning
renal diet and FR
Currently maintained on unfractionated heparin for strong suspicion of pulmonary embolus
Maintain sevelamer for hyperphosphatemia
HD on Friday
GOC discussion
-
-
Date of Service: November 27, 2024
CC / HPI / ROS
-
Chief Complaint:
ESRD, failed KTP
History of Present Illness:
ESRD Friday
no fever
BP labile on midodrine
Remains on heparin drip
WBC up at 15.1
Review of Systems:
offers no complaints
no sob
febrile last night
Labs
-
Labs:
WBC 15.1 10^3/uL (4.8-10.8) H 11/27/24 03:44
RBC 2.63 10^6/uL (4.70-6.10) L 11/27/24 03:44
Hgb 8.0 g/dL (13.0-18.0) L 11/27/24 03:44
Hct 24.6 % (39.0-52.0) L 11/27/24 03:44
Plt Count 270 10^3/uL (130-400) 11/27/24 03:44
Sodium 131 mmol/L (135-145) L 11/27/24 03:44
Potassium 3.7 mmol/L (3.5-5.1) 11/27/24 03:44
Chloride 98 mmol/L (98-107) 11/27/24 03:44
Carbon Dioxide 28 mmol/L (22-30) 11/27/24 03:44
BUN 17 mg/dl (9-20) 11/27/24 03:44
Creatinine 2.3 mg/dL (0.7-1.3) H 11/27/24 03:44
eGFR 28.71 11/27/24 03:44
Glucose 101 mg/dl (70-99) H 11/27/24 03:44
Calcium 8.0 mg/dl (8.4-10.2) L 11/27/24 03:44
Albumin 2.6 g/dl (3.5-5.0) L 11/21/24 14:05
Physical Exam
-
Vital Signs:
Vital Signs
Temp Pulse Resp BP Pulse Ox
98.9 F 117 15 133/64 98
11/27/24 11:30 11/27/24 11:00 11/27/24 11:00 11/27/24 11:00 11/27/24 08:00
Cardiovascular:: Regular rate and rhythm
Respiratory:: Bilateral: Coarse
Lung Excursion:: Normal
Abdomen:: Nontender and Soft
Bowel Sounds:: Normal
Extremity Edema:: +2: Bilateral:
Jacob Catheter: No
[2024-11-27] MEDS: HEPARIN 25000 UNITS/250 ML IV (12:10)
--- NOTE | 2024-11-27 18:09 | PTCARENOTE ---
Patient reports very tired. Still with confusion at times. Poor appetite, flat affect. Amiodarone and heparin gtts infusing per protocols. NST on monitor. VSS. Patient c/o sacral wound discomfort, Q2T. Patient making needs known. Will closely
monitor.
--- NOTE | 2024-11-27 18:17 | W.PN.CD ---
Today's Communication / Plan
-
stop iv amiodarone
start po amiodarone 400mg bid
await GOC discussion
Impression / Plan
-
Impression/Plan: 74 y/o male with ESRD s/p failed renal TX, now on HD, AF, HTN, dementia with profound clinical decline and a sacral decubitus ulcer admitted from [facility] with 'chest pain' but now asymptomatic, but found to meet SIRS/sepsis
criteria, subsequently diagnosed with acute PE.
#Atrial flutter
-Duration unknown.
-Had brief AFib periop from renal transplant, anticoagulation not added.
-HRs have been 100-120; currently 120
-Rate control with amiodarone gtt, IV metoprolol. Intolerant of diltiazem. Now taking PO
-transition iv amiodarone to po given bp requiring midodrine support
-[id number] = 3 (HTN and age x 2).
-Currently on heparin. We will need to assess for filler leaf cutter long AC 2/2 PE.
-Pending GOC may need NUBIA DCCV prior to dc
#Cardiomyopathy
-New diagnosis.
-LVEF 29%.
-Etiology uncertain with multiple potential sources.
-No role for cardiac catheterization.
-GDMT as hemodynamics/BP will tolerate:
-Diuretics: Volume managed with ULTRASONIC HAND SOLDERER.
-Beta debbie: Metoprolol succinate 25 mg daily.
-ACEI/ARB/ARNi: On hold due to ESRD,
-MRA: On hold due to ESRD,
-SGLT2i: On hold due to ESRD.
-ICD: Not currently indicated.
#Presumed Sepsis
-Acute, threat to life.
-Etiology uncertain with multiple potential sources of infection (tunneled line, sacral decubitus ulcer, PNA with pleural effusion).
-Thoracentesis for 1100 mL of straw colored fluid (borderline positive Light's criteria: protein ratio = 0.5; LDH ratio = 0.52).
-Abx per primary team
-Culture data negative to date.
#PE/RLE DVT
-Acute, threat to life.
-Continue heparin gtt.
-FCI anticoagulation? This will depend on treatment trajectory.
#Chest pain he was initially seen for atypical chest pain.
-Currently denies.
-Troponin 0.021.
-Likely 2/2 to PE.
#ESRD
#Progressive functional decline
#Progressive memory decline
#Long standing HTN
#Hx of ETOH, heavy in past
#Sacral Decub
Subjective/Interval History:
No pain. no sob just tired
DATA:
TTE, 11/23/2024:
SUMMARY
1. Severely reduced left ventricular systolic function with global hypokinesis. LVEF 29%.
2. Moderate concentric left ventricular hypertrophy.
3. Low-flow low gradient aortic stenosis (peak/mean 28/18 mmHg, EDDIE 0.9 cm², DVI 0.3 cm).
4. Mild mitral stenosis.
5. Mild mitral regurgitation.
6. No prior study available for comparison.
Physical Exam
Vital Signs/Labs
Vital Signs
Temp Pulse Resp BP Pulse Ox
98.9 F 118 16 122/35 98
11/27/24 15:49 11/27/24 18:00 11/27/24 18:00 11/27/24 18:00 11/27/24 08:00
11/26/24 11/27/24 11/28/24
06:59 06:59 06:59
Actual Weight 155 lb 5 oz 153 lb 8 oz
11/27/24 03:44
11/27/24 03:44
APTT 86.6 Sec (23.4-35.0) H 11/27/24 10:46
Magnesium 2.2 mg/dl (1.6-2.3) 11/23/24 06:10
Physical Exam
Constitutional: No acute distress
Cardiovascular: Pedal edema is absent, JVD pressure is normal, Systolic murmur absent, Diastolic murmur absent and Rhythm/rate is irregular
Respiratory: Respiratory effort normal and Lungs clear to auscul. (anteriorly)
Neuro/Psych: Alert
Data Reviewed
-
Date of Service: November 27, 2024
EKG: Other (tele fib withrvr)
[2024-11-27 18:26] LABS: APTT 84.0 Sec (23.4-35.0)
[2024-11-27] MEDS: PACERONE 400 MG PO (20:26)
[2024-11-27] MEDS: LIPITOR 40 MG PO (20:27)
[2024-11-27] MEDS: MELATONIN 6 MG PO (20:27)
--- NOTE | 2024-11-27 22:54 | PTCARENOTE ---
pt with large loose bm this shift. Bed linens changed, CHG bath done, sacral wound cleaned and redressed. Pt remains aaox1-2, forgetful/confused at times, ST on monitor, HR 110-120. BP cuff switched to R wrist for a more accurate BP. Pressures
remain soft, most recent BP 95/75 MAP 82. Amio gtt dc, 400mg PO amio given with PM meds. Remains on heparin gtt at 8ml/hr. Next PTT due in am. Pt resting comfortably in bed at this time. Q2T. Care ongoing.
[2024-11-28] VITALS (13 sets, daily range): BP systolic 87–129; BP diastolic 60–86; BMI 21.4
[2024-11-28] MEDS: ZOSYN 50 IV ×2 (03:03→15:24)
[2024-11-28 06:28] LABS: Hematocrit 25.1 % (39.0-52.0); Hemoglobin 7.8 g/dL (13.0-18.0); Mean Corp Hgb Conc. 31.1 g/dL (33.0-37.0); Mean Corpuscular Volume 95.1 fL (80.0-94.0); Platelet Count 297 10^3/uL (130-400); Red Cell Dist. Width 21.2 % (11.5-14.5)
[2024-11-28 06:43] LABS: APTT 73.9 Sec (23.4-35.0)
[2024-11-28 06:58] LABS: Blood Urea Nitrogen 25 mg/dl (9-20); Calcium 8.1 mg/dl (8.4-10.2); Carbon Dioxide 29 mmol/L (22-30); Chloride 98 mmol/L (98-107); Estimated Creatinine Clearance 18 ml/min; Glucose 86 mg/dl (70-99); Potassium 3.8 mmol/L (3.5-5.1); Sodium 132 mmol/L (135-145); eGFR 17.35
--- NOTE | 2024-11-28 08:40 | W.PN.HOSP.TC ---
Today's Communication/Plan
-
Continue with IV heparin till goals of care established
Continue with amiodarone
Continue with Zosyn
Follow white count
Assessment / Plan
Assessment / Plan
#chest pain
Asymptomatic now
- Various possibilities-rapid ventricular rate, PE , right pleural effusion with pneumonia
-Continue with amiodarone for rapid ventricular rate
-Continue with IV heparin for DVT/PE
# Sepsis possibilities include right lung pneumonia and sacral decubitus ulcer
- Hemodynamics remained stable
- WBCs now plateaued and no fever in the last 24 hours.
- Continue with wound care and surgical referral based on GOC
- Not bacteremic and MRSA screen negative. Continue with Zosyn
# Extensive right leg DVT with PE. No right ventricular strain on the CT chest. Hemodynamically stable.
- Continue with IV heparin and switch to oral Eliquis once oral intake is established and GOC are finalized
# Large right pleural effusion-unclear if secondary to underlying pneumonia or PE. Exudative by protein criteria . CX neg and PH doesnt suggest empyema. Follow for now
#Atrial flutter with RVR-unknown duration-noted in the post renal transplant situation per cardiology note.[id number] score is at least 3 with hypertension and age. Continue with IV amiodarone per cardiology. [place] too ill to add oral
anticoagulation but is on IV heparin for DVT/PE.
#New cardiomyopathy-patient has findings of EF of 29% which is new to him. Continue with fluid management with hemodialysis. No plans for cardiac catheterization. Etiology uncertain. GDMT medications per cardiology.
#Large sacral decubitus rexpm-vzpilqgqcnh-cwacflkn with wound care till goals of care are established.
# Anemia of chronic disease
- Initial hemoglobin was 10 and down in 8s which has been stable
- No obvious external bleeding. Heme test still pending.Stool brown.
- Iron studies suggest anemia of chronic disease
- Continue to follow H&H for now and aim to keep it more than 7.
#chornic hyponatremia
#ESRD on Dialysis.
# History of kidney transplant
- Continue with hemodialysis support
- Continue with his home regimen and fluid restriction.
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
# Transient staring spell - CT head shows small transcortical infarct in right frontal lobe which is new from 2022. Unclear if any symptomatic currently. He has intracranial arterial atherosclerosis which is expected with his renal disease.
Continue with statins.
# Essential Hypertension - stable, Continue metoprolol, Norvasc
#Insomnia - chronic, continue melatonin
# Hyperlipidemia - Chronic - continue statin
# Gout - chronic - continue Febuxostat
#neuropathy - chronic - Cont gabapentin
DNR
DVT ppx: SC heparin
Discussed with RN
Palliative care involved. Await goals of care discussions with /family-they are not able to get in touch with family
Planning to have a family meeting with Chelsea his yesterday but she could not stay to meet me , will try again today.
DNR/DNI
Discussed with RN
Portions of this chart may have been created with voice recognition software. Occasional wrong word or 'sound alike' substitutions may have occurred due to the inherent limitations of voice recognition software.
Anticipated Discharge: > 48 hours
Subjective/Interval History
-
Date of Service: November 28, 2024
Patient is alert and oriented to self only. He could not tell me the name of the hospital.
He could remember and tell me about his past. He says his father was a big-time project inspector in [place], they moved from [facility] in [facility]. 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
But then he did not know why he came into the hospital and what we are treating him for.
Currently denies any specific complaints including pain.
Denies shortness of breath.
Denies nausea vomiting.
No chest pain. Denies lightheadedness.
Extended thanks to me for visiting him today
Objective Data
-
Labs:
Laboratory Results
11/28/24
06:16
WBC 16.0 H
Hgb 7.8 L
Hct 25.1 L
Plt Count 297
APTT 73.9 H
Sodium 132 L
Potassium 3.8
Chloride 98
Carbon Dioxide 29
BUN 25 H
Creatinine 3.5 H
Glucose 86
Calcium 8.1 L
Vital Signs:
Vital Signs
Temp Pulse Resp BP Pulse Ox
99.2 F 122 22 96/60 95
11/27/24 22:44 11/28/24 04:00 11/28/24 04:00 11/28/24 04:00 11/27/24 20:45
I&O
11/27/24 11/28/24 11/29/24
06:59 06:59 06:59
Intake Total 100 / 100
Balance 100 / 100
Physical Exam
-
General: Comfortable
Respiratory: Clear to Auscultation (Anteriorly) and Non Labored Respirations; Negative Accessory Resp Muscle Use
Cardiac: S1/S2, Irregular Rhythm and Tachycardic
GI: Soft and Other (Right lower quadrant transplanted kidney palpable with no tenderness)
Neuro: Awake, Alert and Oriented
Psych: Calm and Confused; Negative Agitated
Data Reviewed
-
Labs: Labs Reviewed by me
[2024-11-28] MEDS: PROGRAF 2 MG PO (09:14)
[2024-11-28] MEDS: RENVELA PO ×3 (09:14→17:40)
[2024-11-28] MEDS: ULORIC 40 MG PO (09:16)
[2024-11-28] MEDS: MAGNESIUM OXIDE 400 MG PO ×2 (09:16→20:03)
[2024-11-28] MEDS: NEURONTIN 100 MG PO ×2 (09:17→21:35)
[2024-11-28] MEDS: PACERONE 400 MG PO ×2 (09:17→20:03)
[2024-11-28] MEDS: TOPROL XL PO (09:18)
[2024-11-28] MEDS: PEPCID 20 MG PO (09:19)
[2024-11-28] MEDS: SANTYL OINTMENT 1 APPLIC TOPICAL (09:19)
--- NOTE | 2024-11-28 13:00 | W.PN.NEPH.PH ---
Today's Communication / Plan
-
cont GOC , suspect he likely will not be dialyzed appropriately with low BP
Assessment/Plan
-
Impression:
Chest pain tachycardia hypoxia
Right lower leg DVT
ESRD MWF ([facility])
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
Hypertension
History of failed renal transplant from 2021 (remains on low-dose tacrolimus)
Hyperphosphatemia
Anemia
Plan:
Bp labile on midodrine
BP low during HD so could not get UF well, also tachycardic
encourage po intake , asp risk
AVF not functional, CVC functioning
renal diet and FR
Currently maintained on unfractionated heparin for strong suspicion of pulmonary embolus
Maintain sevelamer for hyperphosphatemia
HD on Friday
GOC discussion
-
-
Date of Service: November 28, 2024
CC / HPI / ROS
-
Chief Complaint:
ESRD, failed KTP
History of Present Illness:
ESRD Friday
no fever
BP labile on midodrine
Remains on heparin drip
WBC up at 16.1
Review of Systems:
offers no complaints
no sob or cp
no fever
Labs
-
Labs:
WBC 16.0 10^3/uL (4.8-10.8) H 11/28/24 06:16
RBC 2.64 10^6/uL (4.70-6.10) L 11/28/24 06:16
Hgb 7.8 g/dL (13.0-18.0) L 11/28/24 06:16
Hct 25.1 % (39.0-52.0) L 11/28/24 06:16
Plt Count 297 10^3/uL (130-400) 11/28/24 06:16
Sodium 132 mmol/L (135-145) L 11/28/24 06:16
Potassium 3.8 mmol/L (3.5-5.1) 11/28/24 06:16
Chloride 98 mmol/L (98-107) 11/28/24 06:16
Carbon Dioxide 29 mmol/L (22-30) 11/28/24 06:16
BUN 25 mg/dl (9-20) H 11/28/24 06:16
Creatinine 3.5 mg/dL (0.7-1.3) H 11/28/24 06:16
eGFR 17.35 11/28/24 06:16
Glucose 86 mg/dl (70-99) 11/28/24 06:16
Calcium 8.1 mg/dl (8.4-10.2) L 11/28/24 06:16
Albumin 2.6 g/dl (3.5-5.0) L 11/21/24 14:05
Physical Exam
-
Vital Signs:
Vital Signs
Temp Pulse Resp BP Pulse Ox
97.5 F 122 22 96/60 95
11/28/24 11:00 11/28/24 04:00 11/28/24 04:00 11/28/24 04:00 11/27/24 20:45
Cardiovascular:: Regular rate and rhythm
Respiratory:: Bilateral: Coarse
Lung Excursion:: Normal
Abdomen:: Nontender and Soft
Bowel Sounds:: Normal
Extremity Edema:: +3: Bilateral:
Jacob Catheter: No
--- NOTE | 2024-11-28 15:37 | W.PN.CD ---
Today's Communication / Plan
-
continue current management
Await [facility] discussion
Impression / Plan
-
Impression/Plan: 74 y/o male with ESRD s/p failed renal TX, now on HD, AF, HTN, dementia with profound clinical decline and a sacral decubitus ulcer admitted from [facility] with 'chest pain' but now asymptomatic, but found to meet SIRS/sepsis
criteria, subsequently diagnosed with acute PE.
#Atrial flutter
-Duration unknown.
-Had brief AFib periop from renal transplant, anticoagulation not added.
-HRs have been 100-120; currently 100-120
-Rate control with amiodarone gtt, IV metoprolol. Intolerant of diltiazem. Now taking PO
-transition iv amiodarone to po given bp requiring midodrine support, doubt we we get very far with bb, would not use dig given renal dx
-[id number] = 3 (HTN and age x 2).
-Currently on heparin. We will need to assess for termite control technician AC 2/2 PE.
#Cardiomyopathy
-New diagnosis.
-LVEF 29%.
-Etiology uncertain with multiple potential sources.
-No role for cardiac catheterization.
-GDMT as hemodynamics/BP will tolerate:
-Diuretics: Volume managed with FILLING MIXER.
-Beta debbie: Metoprolol succinate 25 mg daily.
-ACEI/ARB/ARNi: On hold due to ESRD,
-MRA: On hold due to ESRD,
-SGLT2i: On hold due to ESRD.
-ICD: Not currently indicated.
#Presumed Sepsis
-Acute, threat to life.
-Etiology uncertain with multiple potential sources of infection (tunneled line, sacral decubitus ulcer, PNA with pleural effusion).
-Thoracentesis for 1100 mL of straw colored fluid (borderline positive Light's criteria: protein ratio = 0.5; LDH ratio = 0.52).
-Abx per primary team
-Culture data negative to date.
#PE/RLE DVT
-Acute, threat to life.
-Continue heparin gtt.
-[facility] anticoagulation? This will depend on treatment trajectory.
#Chest pain he was initially seen for atypical chest pain.
-Currently denies.
-Troponin 0.021.
-Likely 2/2 to PE.
#ESRD
#Progressive functional decline
#Progressive memory decline
#Long standing HTN
#Hx of ETOH, heavy in past
#Sacral Decub
Subjective/Interval History:
No pain. no sob just tired
DATA:
TTE, 11/23/2024:
SUMMARY
1. Severely reduced left ventricular systolic function with global hypokinesis. LVEF 29%.
2. Moderate concentric left ventricular hypertrophy.
3. Low-flow low gradient aortic stenosis (peak/mean 28/18 mmHg, EDDIE 0.9 cm², DVI 0.3 cm).
4. Mild mitral stenosis.
5. Mild mitral regurgitation.
6. No prior study available for comparison.
Physical Exam
Vital Signs/Labs
Vital Signs
Temp Pulse Resp BP Pulse Ox
97.5 F 122 22 96/60 95
11/28/24 11:00 11/28/24 04:00 11/28/24 04:00 11/28/24 04:00 11/27/24 20:45
11/27/24 11/28/24 11/29/24
06:59 06:59 06:59
Actual Weight 153 lb 8 oz 157 lb 5 oz
11/28/24 06:16
11/28/24 06:16
APTT 73.9 Sec (23.4-35.0) H 11/28/24 06:16
Magnesium 2.2 mg/dl (1.6-2.3) 11/23/24 06:10
Physical Exam
Constitutional: No acute distress and Comfortable
Cardiovascular: JVD pressure is normal, Systolic murmur absent, Diastolic murmur absent, Rhythm/rate is irregular and Pedal edema present (1-2+pitting b/l )
Respiratory: Respiratory effort normal, Lungs clear to auscul., Wheeze Absent, Crackles Absent and Rhonchi Absent
Neuro/Psych: AO x 3
Data Reviewed
-
Date of Service: November 28, 2024
[2024-11-28] MEDS: HEPARIN 25000 UNITS/250 ML IV (18:28)
[2024-11-28] MEDS: MELATONIN 6 MG PO (21:35)
[2024-11-28] MEDS: LIPITOR 40 MG PO (21:35)
[2024-11-29] VITALS (28 sets, daily range): BP systolic 81–148; BP diastolic 54–108; BMI 21.2
[2024-11-29] MEDS: ZOSYN 50 IV ×3 (00:08→20:02)
[2024-11-29] MEDS: SANTYL OINTMENT 1 APPLIC TOPICAL (03:17)
--- NOTE | 2024-11-29 04:27 | PTCARENOTE ---
Patient AAOx1-2, forgetful/confused at times. Sinus tach on the monitor HR 110-120s. Heparin gtt cont. IV abx cont. 97% on room air. Pt incontinent of bowel, pt had 2 moderate BMs. CHG bath done. Sacral wound cleaned and redressed per order. Pt
tolerating frequent turning and repositioning, call gilmore within reach.
[2024-11-29 05:10] LABS: Hematocrit 25.8 % (39.0-52.0); Hemoglobin 8.2 g/dL (13.0-18.0); Mean Corp Hgb Conc. 31.8 g/dL (33.0-37.0); Mean Corpuscular Volume 96.6 fL (80.0-94.0); Platelet Count 318 10^3/uL (130-400); Red Cell Dist. Width 21.7 % (11.5-14.5)
[2024-11-29 05:21] LABS: APTT 80.6 Sec (23.4-35.0)
[2024-11-29] MEDS: PROGRAF 2 MG PO (08:16)
[2024-11-29] MEDS: RENVELA PO ×3 (08:16→17:04)
[2024-11-29] MEDS: PACERONE 400 MG PO ×2 (08:17→20:01)
[2024-11-29] MEDS: NEURONTIN 100 MG PO ×2 (08:17→21:18)
[2024-11-29] MEDS: TOPROL XL PO (10:25)
--- NOTE | 2024-11-29 10:37 | W.PN.NEPH.HD ---
Assessment
-
Seen on HD. no complaints. BP remains labile.
while he has edema, goal is to maintain EDW rather than ander edema
Progress Note - Hemodialysis
-
Date of Service: November 29, 2024
Duration: 30 minutes and 3 hours
Potassium Bath: 3
Calcium Bath: 2.5
Opti-Dialyzer: 160
Ultrafiltration: Other (1.5kg)
Blood Flow: 350
Dialysate Flow: 600
Heparin: no
EPO: 09031 units
[2024-11-29] MEDS: ZOSYN IV (11:16)
[2024-11-29] MEDS: MAGNESIUM OXIDE 400 MG PO ×2 (11:46→20:02)
[2024-11-29] MEDS: ULORIC 40 MG PO (11:46)
--- NOTE | 2024-11-29 15:26 | W.PN.HOSP.TC ---
Addendum entered and electronically signed by Ray Lange DO 11/30/24 10:22:
Diagnosis clarification: Sepsis only
Original Note:
Today's Communication/Plan
-
Assessment / Plan
Assessment / Plan
General: No Apparent Distress, Comfortable and Conversant
HEENT: NormoCephalic, Moist mucous membranes, Atraumatic
Respiratory: Clear and Non Labored Respirations
Cardiac: Irregular rhythm, heart rate between 110-125
GI: Soft, Non Tender, Non Distended, right lower quadrant renal transplant site nontender
Musculoskeletal: No Edema, no deformity
: NO Jacob
Neuro: Awake, Alert, Nonfocal/grossly intact
Psych: Calm and cooperative
#chest pain
Asymptomatic now
- Various possibilities-rapid ventricular rate, PE , right pleural effusion with pneumonia
-Continue with amiodarone for rapid ventricular rate
-Continue with IV heparin for DVT/PE
# Sepsis possibilities include right lung pneumonia and sacral decubitus ulcer
- Hemodynamics remained stable
- WBCs now plateaued and no fever in the last 24 hours.
- Continue with wound care and surgical referral based on GOC
- Not bacteremic and MRSA screen negative. Continue with Zosyn
# Extensive right leg DVT with PE. No right ventricular strain on the CT chest. Hemodynamically stable.
- Continue with IV heparin and switch to oral Eliquis once oral intake is established and GOC are finalized
# Large right pleural effusion
-unclear if secondary to underlying pneumonia or PE. Exudative by protein criteria . CX neg and PH doesn't suggest empyema. Follow for now
#Atrial flutter with RVR
-unknown duration
-noted in the post renal transplant situation per cardiology note.
-[id number] score is at least 3 with hypertension and age.
- Mccaulley too ill to add oral anticoagulation but is on IV heparin for DVT/PE.
- I have transitioned IV amiodarone to oral 40 mg twice daily, continuing Toprol-XL 25 mg daily, although heart rate still poorly controlled
- Goals of care discussions ongoing
#New cardiomyopathy
-patient has findings of EF of 29% which is new to him.
Continue with fluid management with hemodialysis.
No plans for cardiac catheterization. Etiology uncertain. GDMT medications per cardiology.
#Large sacral decubitus ulcer
-unstageable-continue with wound care till goals of care are established.
# Anemia of chronic disease
- Initial hemoglobin was 10 and down in 8s which has been stable
- No obvious external bleeding. Heme test still pending.Stool brown.
- Iron studies suggest anemia of chronic disease
- Continue to follow H&H for now and aim to keep it more than 7.
#chronic hyponatremia
#ESRD on Dialysis.
# History of kidney transplant
- Continue with hemodialysis support
- Continue with his home regimen and fluid restriction.
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
# Transient staring spell
- CT head shows small transcortical infarct in right frontal lobe which is new from 2022.
- He has intracranial arterial atherosclerosis which is expected with his renal disease.
- Continue with statins.
# Essential Hypertension - stable, Continue metoprolol, Norvasc
#Insomnia - chronic, continue melatonin
# Hyperlipidemia - Chronic - continue statin
# Gout - chronic - continue Febuxostat
#neuropathy - chronic - Cont gabapentin
DNR
DVT ppx: IV heparin drip
Palliative care involved. Await goals of care discussions with /family
DNR/DNI
Total time spent with patient encounter 56 minutes.
Anticipated Discharge: > 48 hours
Subjective/Interval History
-
Date of Service: November 29, 2024
Patient was seen and examined at bedside this morning. Currently comfortable. Remains anticoagulated with IV heparin drip for right lower extremity DVT and right lower lobe PE.
Objective Data
-
Labs:
Laboratory Results
11/29/24
04:54
WBC 14.6 H
Hgb 8.2 L
Hct 25.8 L
Plt Count 318
APTT 80.6 H
Vital Signs:
Vital Signs
Temp Pulse Resp BP Pulse Ox
97.5 F 124 16 86/55 96
11/29/24 11:00 11/29/24 12:20 11/29/24 12:20 11/29/24 12:15 11/29/24 12:39
I&O
11/28/24 11/29/24 11/30/24
06:59 06:59 06:59
Intake Total 230 / 230
Balance 230 / 230
Review of Systems
-
History Source: Patient
All other systems: Reviewed and negative
Physical Exam
-
General: No Apparent Distress
--- NOTE | 2024-11-29 15:42 | PTCARENOTE ---
Caring for pt throughout the day. Aox2-3. Slow speech, forgetful and flat. ST on tele monitor. Heparin infusing as ordered, see worklist. Dressings C/D/I. Tolerating diet with assistance. Pt updated on plan of care. Safe environment maintained.
Call gilmore within reach.
--- NOTE | 2024-11-29 16:29 | CM ---
HR 110-125, HD, IV/AB. Discharge POC: Await therapy evaluation.
--- NOTE | 2024-11-29 17:36 | W.PN.PAL2 ---
Today's Communication
-
Called Chelsea today, she is clear regarding DNR/DNI, no feeding tubes but would like HD to continue, we discussed GOC and what she is hopeful for, I shared his clinical status and she understands he is very sick and will not be returning to baseline,
she would like to be contacted if any acute change in status ' as that could help her make decision', but for now she would just like to continue with DNR/DNI, no feeding tubes.
Objective Data
-
Objective Data:
Vital Signs
Temp Pulse Resp BP Pulse Ox
97.7 F 125 18 101/71 95
11/29/24 15:00 11/29/24 17:00 11/29/24 17:00 11/29/24 16:00 11/29/24 17:00
Laboratory Results
11/29/24 04:54
11/28/24 06:16
APTT 80.6 Sec (23.4-35.0) H 11/29/24 04:54
Total Protein Cancelled 11/23/24 09:01
Albumin 2.6 g/dl (3.5-5.0) L 11/21/24 14:05
Palliative Performance Scale
Palliative Performance Scale:
PPS Level Ambulation Activity & Evidence of Disease Self Care Intake Conscious Level
100% Full Normal Activity & Work; Full Intake Full
No Evidence of Disease
90% Full Normal Activity & Work; Full Normal Full
Some Evidence of Disease
80% Full Normal Activity with Effort Full Normal or Full
Some Evidence of Disease Reduced
70% Reduced Unable Normal Job/Work Full Normal or Full
Significant Disease Reduced
60% Reduced Unable Hobby/Housework Occasional Normal or Full or Confusion
Significant Disease Assistance Reduced
50% Mainly Sit/Lie Unable to do Any Work Considerable Normal or Full or Confusion
Extensive Disease Assistance Req'd Reduced
40% Mainly in Bed Unable to do Most Activity Mainly Assistance Normal or Full or Drowsy;
Extensive Disease Reduced +/- Confusion
30% Totally Bed Unable to do Any Activity Total Care Normal or Full or Drowsy;
Bound Extensive Disease Reduced +/- Confusion
20% Totally Bed Bound Unable to do Any Activity Total Care Minimal to Full or Drowsy;
Extensive Disease Sips +/- Confusion
10% Totally Bed Bound Unable to do Any Activity Total Care Mouth Care Drowsy or Coma;
Extensive Disease Only +/- Confusion
0%
PPS Score Level:
[2024-11-29] MEDS: MELATONIN 6 MG PO (21:18)
[2024-11-29] MEDS: TYLENOL 650 MG PO (21:18)
[2024-11-29] MEDS: LIPITOR 40 MG PO (21:19)
[2024-11-29 22:26] LABS: Glucose - Point of Care 128 mg/dl (70-99)
[2024-11-30] VITALS (13 sets, daily range): BP systolic 81–121; BP diastolic 58–98; BMI 21.2
--- NOTE | 2024-11-30 02:45 | PTCARENOTE ---
Patient AAOx1-2, forgetful and confused at times. Pt drowsy and states he feels 'very tired' tonight. ST on the monitor HR 110-120s. Heparin gtt cont. Due for PTT in AM. IV abx cont. 99% on room air. Pt experiencing discomfort to lower
back/buttocks. PRN Tylenol administered. Pt incontinent of bowels. CHG bath done. Sacral wound cleaned and redressed per order. Pt tolerating turning and repositioning. Call gilmore within reach.
[2024-11-30] MEDS: ZOSYN 50 IV ×3 (03:09→20:03)
[2024-11-30] MEDS: HEPARIN 25000 UNITS/250 ML IV (03:10)
[2024-11-30 05:14] LABS: Hematocrit 25.2 % (39.0-52.0); Hemoglobin 7.7 g/dL (13.0-18.0); Mean Corp Hgb Conc. 30.6 g/dL (33.0-37.0); Mean Corpuscular Volume 95.8 fL (80.0-94.0); Platelet Count 279 10^3/uL (130-400); Red Cell Dist. Width 21.9 % (11.5-14.5)
[2024-11-30 05:51] LABS: APTT 68.3 Sec (23.4-35.0)
[2024-11-30] MEDS: HEPARIN 2800 UNITS IV (06:33)
--- NOTE | 2024-11-30 08:30 | W.PN.CD ---
Today's Communication / Plan
-
Continue current medications
Ongoing GOC discussions
Impression / Plan
-
Impression/Plan: 74 y/o male with ESRD s/p failed renal TX, now on HD, AF, HTN, dementia with profound clinical decline and a sacral decubitus ulcer admitted from [facility] with 'chest pain' but now asymptomatic, but found to meet SIRS/sepsis
criteria, subsequently diagnosed with acute PE.
#Atrial flutter
-Duration unknown.
-Had brief AFib periop from renal transplant, anticoagulation not added.
-HRs have been 100-120; currently 100-120
-Rate control with amiodarone gtt, IV metoprolol. Intolerant of diltiazem. Now taking PO
-[id number] = 3 (HTN and age x 2).
-heparin transitioned to po Eliquis
-if plan is for discharge to facility without hospice, may be forced to consider NUBIA/DCCV, not sure this will be effective, doubt it will change clinical outcome.
#Cardiomyopathy
-New diagnosis.
-LVEF 29%.
-Etiology uncertain with multiple potential sources.
-No role for cardiac catheterization.
-GDMT as hemodynamics/BP will tolerate:
-Diuretics: Volume managed with OIL PAINT SHADER.
-Beta debbie: Metoprolol succinate 25 mg daily.
-ACEI/ARB/ARNi: On hold due to ESRD,
-MRA: On hold due to ESRD,
-SGLT2i: On hold due to ESRD.
-ICD: Not currently indicated.
#Presumed Sepsis
-Acute, threat to life.
-Etiology uncertain with multiple potential sources of infection (tunneled line, sacral decubitus ulcer, PNA with pleural effusion).
-Thoracentesis for 1100 mL of straw colored fluid (borderline positive Light's criteria: protein ratio = 0.5; LDH ratio = 0.52).
-Abx per primary team
-Culture data negative to date.
#PE/RLE DVT
-Acute, threat to life.
-Continue heparin gtt.
-skilled nursing anticoagulation? This will depend on treatment trajectory.
#Chest pain he was initially seen for atypical chest pain.
-Currently denies.
-Troponin 0.021.
-Likely 2/2 to PE.
#ESRD
#Progressive functional decline
#Progressive memory decline
#Long standing HTN
#Hx of ETOH, heavy in past
#Sacral Decub
Subjective/Interval History:
No pain. no sob just tired
DATA:
TTE, 11/23/2024:
SUMMARY
1. Severely reduced left ventricular systolic function with global hypokinesis. LVEF 29%.
2. Moderate concentric left ventricular hypertrophy.
3. Low-flow low gradient aortic stenosis (peak/mean 28/18 mmHg, EDDIE 0.9 cm², DVI 0.3 cm).
4. Mild mitral stenosis.
5. Mild mitral regurgitation.
6. No prior study available for comparison.
Physical Exam
Vital Signs/Labs
Vital Signs
Temp Pulse Resp BP Pulse Ox
97.6 F 121 13 99/71 93
11/30/24 07:00 11/30/24 06:00 11/30/24 06:00 11/30/24 06:00 11/30/24 06:00
11/29/24 11/30/24 12/01/24
06:59 06:59 06:59
Actual Weight 156 lb 1.396 oz 155 lb 13.869 oz
11/30/24 05:04
11/28/24 06:16
APTT 68.3 Sec (23.4-35.0) H 11/30/24 05:04
Magnesium 2.2 mg/dl (1.6-2.3) 11/23/24 06:10
Physical Exam
Constitutional: No acute distress and Comfortable
Cardiovascular: Rhythm/rate is irregular, Pedal edema present (2+ bl), Systolic murmur present and Diastolic murmur present
Respiratory: Respiratory effort normal, Lungs clear to auscul., Wheeze Absent and Crackles Absent
Neuro/Psych: AO x 3
Data Reviewed
-
Date of Service: November 30, 2024
Medical Decision Making: Review of Case with other Provider (Dr Rock: await goc doubt NUBIA/DCCV changes overall prognosis)
--- NOTE | 2024-11-30 09:02 | PN.CDI ---
CDI
- -
CDI:
Physician Documentation Request
Admit Date: 11/21/24 16:39
Dear Doctor Anisa,
Patient presented with chest pain. Found to have sepsis 'possibilities include right lung pneumonia and sacral decubitus ulcer'
11/21 lactic acid 2.2
Please clarify which of the following most accurately describes the status of the patient's infection:
Severe Sepsis
- Sepsis with associated acute organ dysfunction, such as renal or respiratory failure
Sepsis only
Other
Use of terms such as suspected, likely, concern for, or probable (associated with a specific diagnosis that is being evaluated, monitored, or treated as if it exists) are acceptable and can be coded in the inpatient setting, when documented at the
time of discharge.
Thank you,
Amanda Dumont RN, BSN
CDI Specialist
tiger text
Please use your independent medical judgment in providing your response.
[2024-11-30] MEDS: PACERONE 400 MG PO ×2 (09:18→19:42)
[2024-11-30] MEDS: MAGNESIUM OXIDE 400 MG PO ×2 (09:19→19:42)
[2024-11-30] MEDS: ELIQUIS 10 MG PO ×2 (09:19→19:42)
[2024-11-30] MEDS: PROGRAF 2 MG PO (09:19)
[2024-11-30] MEDS: PEPCID 20 MG PO (09:19)
[2024-11-30] MEDS: ULORIC 40 MG PO (09:20)
[2024-11-30] MEDS: NEURONTIN 100 MG PO ×2 (09:20→22:31)
[2024-11-30] MEDS: SANTYL OINTMENT 1 APPLIC TOPICAL (09:20)
[2024-11-30] MEDS: RENVELA PO ×3 (09:26→16:45)
[2024-11-30] MEDS: TOPROL XL PO (09:26)
--- NOTE | 2024-11-30 09:34 | W.PN.NEPH.PH ---
Addendum entered and electronically signed by Ray Ramirez MD 11/30/24 09:39:
now on eliquis for PE
Original Note:
Today's Communication / Plan
-
HD tomorrow
Assessment/Plan
-
Impression:
Chest pain tachycardia hypoxia
Right lower leg DVT
ESRD MWF ([facility] ?)
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
Hypertension
History of failed renal transplant from 2021 (remains on low-dose tacrolimus)
Hyperphosphatemia
Anemia
Plan:
Bp labile on midodrine
AVF not functional, CVC functioning
renal diet and FR
Currently maintained on unfractionated heparin for strong suspicion of pulmonary embolus
HD tomorrow
transfuse prn
-
-
Date of Service: November 30, 2024
CC / HPI / ROS
-
Chief Complaint:
ESRD, failed KTP
History of Present Illness:
ESRD Friday
tolerated HD yesterday
no fever
BP labile on midodrine
Remains on heparin drip
WBC down 10.6
hgb low 7.7
Review of Systems:
offers no complaints
no sob or cp
no fever
Labs
-
Labs:
WBC 10.6 10^3/uL (4.8-10.8) 11/30/24 05:04
RBC 2.63 10^6/uL (4.70-6.10) L 11/30/24 05:04
Hgb 7.7 g/dL (13.0-18.0) L 11/30/24 05:04
Hct 25.2 % (39.0-52.0) L 11/30/24 05:04
Plt Count 279 10^3/uL (130-400) 11/30/24 05:04
Sodium 132 mmol/L (135-145) L 11/28/24 06:16
Potassium 3.8 mmol/L (3.5-5.1) 11/28/24 06:16
Chloride 98 mmol/L (98-107) 11/28/24 06:16
Carbon Dioxide 29 mmol/L (22-30) 11/28/24 06:16
BUN 25 mg/dl (9-20) H 11/28/24 06:16
Creatinine 3.5 mg/dL (0.7-1.3) H 11/28/24 06:16
eGFR 17.35 11/28/24 06:16
Glucose 86 mg/dl (70-99) 11/28/24 06:16
Calcium 8.1 mg/dl (8.4-10.2) L 11/28/24 06:16
Albumin 2.6 g/dl (3.5-5.0) L 11/21/24 14:05
Physical Exam
-
Vital Signs:
Vital Signs
Temp Pulse Resp BP Pulse Ox
97.6 F 121 13 99/71 93
11/30/24 07:00 11/30/24 06:00 11/30/24 06:00 11/30/24 06:00 11/30/24 06:00
Cardiovascular:: Regular rate and rhythm
Respiratory:: Bilateral: Coarse
Lung Excursion:: Normal
Abdomen:: Nontender and Soft
Bowel Sounds:: Normal
Extremity Edema:: None: Bilateral:
--- NOTE | 2024-11-30 09:42 | PTCARENOTE ---
Heparin gtt off and eliquis administered per orders.
--- NOTE | 2024-11-30 12:44 | PTCARENOTE ---
Caring for pt throughout the day. Aox2-3. Slow speech, forgetful and flat. ST on tele monitor. Dressings C/D/I. Tolerating diet with assistance. Pt updated on plan of care. Q2T. Safe environment maintained. Call gilmore within reach.
--- NOTE | 2024-11-30 13:07 | W.PN.HOSP.TC ---
Today's Communication/Plan
-
Assessment / Plan
Assessment / Plan
General: No Apparent Distress, chronically ill-appearing
HEENT: NormoCephalic, Moist mucous membranes, Atraumatic
Respiratory: Clear and Non Labored Respirations
Cardiac: regular rhythm, heart rate between 120
GI: Soft, Non Tender, Non Distended, right lower quadrant renal transplant site nontender
Musculoskeletal: Bilateral lower extremity edema greater than left, right chest PermCath
: NO Jacob
Neuro: Awake, Alert, confused
Psych: Calm and cooperative
#chest pain
Asymptomatic now
- Various possibilities-rapid ventricular rate, PE , right pleural effusion with pneumonia
-Continue with amiodarone for rapid ventricular rate
-Continue anticoagulation with Eliquis for DVT/PE
# Sepsis possibilities include right lung pneumonia and sacral decubitus ulcer
- Remains tachycardic and borderline hypotensive
- Leukocytosis resolved, afebrile since 11/26
- Continue with wound care
- Not bacteremic and MRSA screen negative. Continue with Zosyn
# Extensive right leg DVT with PE.
- No right ventricular strain on the CT chest.
- Spoke with patient's who is aware of the seriousness of the patient's condition but not ready to pursue hospice care, goals are still restorative, CODE STATUS confirmed DNR
- Anticoagulation switched to Eliquis today 11/30
# Large right pleural effusion
-unclear if secondary to underlying pneumonia or PE. Exudative by protein criteria . CX neg and PH doesn't suggest empyema. Follow for now
#Atrial flutter with RVR
-unknown duration
-noted in the post renal transplant situation per cardiology note.
-[id number] score is at least 3 with hypertension and age.
- Currently in sinus tachycardia with heart rate 120
- Have transitioned IV amiodarone to oral 400 mg twice daily, continuing Toprol-XL 25 mg daily, although heart rate still poorly controlled
- Goals of care are currently restorative although CODE STATUS confirmed DNR
#New cardiomyopathy
-patient has findings of EF of 29% which is new to him.
- Etiology unclear
-Continue with fluid management with hemodialysis.
-No plans for cardiac catheterization. Will not change outcomes
- GDMT medications
#Large sacral decubitus ulcer
-unstageable-continue with wound care
# Anemia of chronic disease
- Initial hemoglobin was 10 and down in 8s which has been stable
- No obvious external bleeding. Heme test still pending.Stool brown.
- Iron studies suggest anemia of chronic disease
- Continue to follow H&H for now and aim to keep it more than 7.
#chronic hyponatremia
#ESRD on Dialysis.
# History of kidney transplant
- Continue with hemodialysis support
- Continue with his home regimen and fluid restriction.
- Per history failed renal transplant
--on tacrolimus, continue per renal
# Transient staring spell
- CT head shows small transcortical infarct in right frontal lobe which is new from 2022.
- He has intracranial arterial atherosclerosis which is expected with his renal disease.
- Continue with statins.
# Essential Hypertension - stable, Continue metoprolol, Norvasc
#Insomnia - chronic, continue melatonin
# Hyperlipidemia - Chronic - continue statin
# Gout - chronic - continue Febuxostat
#neuropathy - chronic - Cont gabapentin
DNR
DVT ppx: Eliquis
Palliative care involved. Patient's , Chelsea, confirms CODE STATUS is DNR, does not want to pursue feeding tubes if needed, goals of care restorative for now, not yet ready to pursue hospice care
DNR/DNI
Total time spent with patient encounter 55 minutes.
Anticipated Discharge: > 48 hours
Subjective/Interval History
-
Date of Service: November 30, 2024
Patient was seen and examined at bedside this morning. Remains tachycardic with heart rate around 120. Chronically ill-appearing. Denies any discomfort.
Objective Data
-
Labs:
Laboratory Results
11/30/24 11/30/24
05:04 12:40
WBC 10.6
Hgb 7.7 L
Hct 25.2 L
Plt Count 279
APTT 68.3 H Pending
Vital Signs:
Vital Signs
Temp Pulse Resp BP Pulse Ox
98.0 F 121 13 108/82 99
11/30/24 11:00 11/30/24 10:00 11/30/24 10:00 11/30/24 10:00 11/30/24 12:03
I&O
11/29/24 11/30/24 12/01/24
06:59 06:59 06:59
Intake Total 230 / 230 230 / 230
Balance 230 / 230 230 / 230
Review of Systems
-
History Source: Patient
All other systems: Reviewed and negative
Physical Exam
-
General: No Apparent Distress and Appears Chronically Ill
--- NOTE | 2024-11-30 17:01 | CM ---
Following up on patient. RN stated that patient is off the heparin drip today, has been off Amnio drip, and on a soft diet, but confused. The ex- is the decision maker at this time.
LIBORIO Edmondson updated Liaison Stacey with [facility], Case Management to follow.
PLAN: Return to [facility], but awaiting PT/OT evaluation
[2024-11-30] MEDS: TYLENOL 650 MG PO (17:42)
[2024-11-30] MEDS: MELATONIN 6 MG PO (22:31)
[2024-11-30] MEDS: LIPITOR 40 MG PO (22:32)
[2024-12-01] VITALS (30 sets, daily range): BP systolic 79–159; BP diastolic 29–109; BMI 21.1
[2024-12-01] MEDS: TYLENOL 650 MG PO (00:34)
[2024-12-01] MEDS: ZOSYN 50 IV ×3 (03:35→20:48)
--- NOTE | 2024-12-01 05:05 | PTCARENOTE ---
Caring for patient overnight. Pt AAOx2-3, pt forgetful and confused at times. ST on the monitor HR 110s. Pt experiencing some discomfort when turning side to side. PRN Tylenol administered. Switched to PO Eliquis and had no issues taking. Sacral
wound cleaned and redressed. Q2T. Call gilmore within reach.
[2024-12-01] MEDS: NEURONTIN 100 MG PO ×2 (08:56→23:24)
[2024-12-01] MEDS: ULORIC 40 MG PO (08:56)
[2024-12-01] MEDS: PROGRAF 2 MG PO (08:56)
[2024-12-01] MEDS: PACERONE 400 MG PO ×2 (08:56→22:01)
[2024-12-01] MEDS: ELIQUIS 10 MG PO ×2 (08:56→20:48)
[2024-12-01] MEDS: MAGNESIUM OXIDE 400 MG PO ×2 (08:57→20:48)
[2024-12-01] MEDS: RENVELA 800 MG PO ×2 (08:57→17:45)
[2024-12-01] MEDS: SANTYL OINTMENT 1 APPLIC TOPICAL (08:57)
--- NOTE | 2024-12-01 11:09 | W.PN.CD ---
Today's Communication / Plan
-
d/w family re possible leann/dccv
Impression / Plan
-
Impression/Plan: 74 y/o male with ESRD s/p failed renal TX, now on HD, AF, HTN, dementia with profound clinical decline and a sacral decubitus ulcer admitted from [facility] with 'chest pain' but now asymptomatic, but found to meet SIRS/sepsis
criteria, subsequently diagnosed with acute PE.
#Atrial flutter
-Duration unknown.
-Had brief AFib periop from renal transplant, anticoagulation not added.
-HRs have been 100-120; currently 100-120
-Rate control with amiodarone gtt, IV metoprolol. Intolerant of diltiazem. Now taking PO
-[id number] = 3 (HTN and age x 2).
-heparin transitioned to po Eliquis
-d/w Dr Ricketts --family not ready to pursue hospice, he is DNR/DNI/No feeding tube
-if plan is for discharge to facility , may be forced to consider LEANN/DCCV, not sure this will be effective, doubt it will change clinical outcome.
-Patient seems agreeable, but will discuss with family as will need to be full code for the 24 hours of procedure.
#Cardiomyopathy
-New diagnosis.
-LVEF 29%.
-Etiology uncertain with multiple potential sources.
-No role for cardiac catheterization.
-GDMT as hemodynamics/BP will tolerate:
-Diuretics: Volume managed with MAGAZINE KEEPER.
-Beta debbie: Metoprolol succinate 25 mg daily.
-ACEI/ARB/ARNi: On hold due to ESRD,
-MRA: On hold due to ESRD,
-SGLT2i: On hold due to ESRD.
-ICD: Not currently indicated.
#Presumed Sepsis
-Acute, threat to life.
-Etiology uncertain with multiple potential sources of infection (tunneled line, sacral decubitus ulcer, PNA with pleural effusion).
-Thoracentesis for 1100 mL of straw colored fluid (borderline positive Light's criteria: protein ratio = 0.5; LDH ratio = 0.52).
-Abx per primary team
-Culture data negative to date.
#PE/RLE DVT
-Acute, threat to life.
-now on Eliquis
#Chest pain he was initially seen for atypical chest pain.
-Currently denies.
-Troponin 0.021.
-Likely 2/2 to PE.
#ESRD
#Progressive functional decline
#Progressive memory decline
#Long standing HTN
#Hx of ETOH, heavy in past
#Sacral Decub
Subjective/Interval History:
No pain. no sob just tired
DATA:
TTE, 11/23/2024:
SUMMARY
1. Severely reduced left ventricular systolic function with global hypokinesis. LVEF 29%.
2. Moderate concentric left ventricular hypertrophy.
3. Low-flow low gradient aortic stenosis (peak/mean 28/18 mmHg, EDDIE 0.9 cm², DVI 0.3 cm).
4. Mild mitral stenosis.
5. Mild mitral regurgitation.
6. No prior study available for comparison.
Physical Exam
Vital Signs/Labs
Vital Signs
Temp Pulse Resp BP Pulse Ox
97.5 F 116 9 93/71 99
12/01/24 07:00 12/01/24 08:00 12/01/24 08:00 12/01/24 08:00 12/01/24 08:00
11/30/24 12/01/24 12/02/24
06:59 06:59 06:59
Actual Weight 155 lb 13.869 oz 155 lb 10.342 oz
11/30/24 05:04
APTT Cancelled 11/30/24 20:34
Magnesium 2.2 mg/dl (1.6-2.3) 11/23/24 06:10
Physical Exam
Constitutional: No acute distress
Cardiovascular: JVD pressure is normal, Systolic murmur absent and Pedal edema present (1+)
Respiratory: Respiratory effort normal, Lungs clear to auscul. and Wheeze Absent
Data Reviewed
-
Date of Service: December 01, 2024
Medical Decision Making: Review of Case with other Provider ([facility] nursing and Dr Ricketts will d/w family leann/dccv)
EKG: Other (tele fib)
--- NOTE | 2024-12-01 12:10 | PTCARENOTE ---
Patient aspiration precautions, requires a good set up of meal tray and supervision. Patient needs reminders to eat safely. INC of large loose stool. Currently receiving HD with [facility].
[2024-12-01] MEDS: FLEXBUMIN 25% FOR HEMODIALYSIS 12.5 GRAMS IV ×2 (12:15→14:10)
[2024-12-01] MEDS: MANNITOL 25% 12.5 GRAMS IV ×2 (12:20→14:26)
[2024-12-01] MEDS: RETACRIT 10000 UNITS IV (12:43)
[2024-12-01 13:21] LABS: Carbon Dioxide 30 mmol/L (22-30); Chloride 98 mmol/L (98-107); Potassium 4.0 mmol/L (3.5-5.1); Sodium 131 mmol/L (135-145)
--- NOTE | 2024-12-01 14:43 | W.PN.HOSP.TC ---
Today's Communication/Plan
-
Assessment / Plan
Assessment / Plan
General: No Apparent Distress, chronically ill-appearing
HEENT: NormoCephalic, Moist mucous membranes, Atraumatic
Respiratory: Clear and Non Labored Respirations
Cardiac: regular rhythm, heart rate between 120
GI: Soft, Non Tender, Non Distended, right lower quadrant renal transplant site nontender
Musculoskeletal: Bilateral lower extremity edema greater than left, right chest PermCath
: NO Jacob
Neuro: Awake, Alert, confused
Psych: Calm and cooperative
#chest pain
Asymptomatic now
- Likely multifactorial due to rapid ventricular rate, PE, right pleural effusion with pneumonia
-Continue with amiodarone for rapid ventricular rate
-Continue anticoagulation with Eliquis for DVT/PE
#Atrial flutter with RVR
-unknown duration
-noted in the post renal transplant situation per cardiology note.
-[id number] score is at least 3 with hypertension and age.
- Currently in sinus tachycardia with heart rate 120
- Have transitioned IV amiodarone to oral 400 mg twice daily, continuing Toprol-XL 25 mg daily, although heart rate still poorly controlled
- Goals of care are currently restorative although CODE STATUS confirmed DNR
- Tentatively planning NUBIA/cardioversion during this admission
# Sepsis possibilities include right lung pneumonia and sacral decubitus ulcer
- Remains tachycardic and borderline hypotensive
- Leukocytosis resolved, afebrile since 11/26
- Continue with wound care
- Not bacteremic and MRSA screen negative. Continue with Zosyn
# Extensive right leg DVT with PE.
- No right ventricular strain on the CT chest.
- Spoke with patient's who is aware of the seriousness of the patient's condition but not ready to pursue hospice care, goals are still restorative, CODE STATUS confirmed DNR
- Anticoagulation switched to Eliquis 11/30
# Large right pleural effusion
-unclear if secondary to underlying pneumonia or PE. Exudative by protein criteria . CX neg and PH doesn't suggest empyema. Follow for now
#New cardiomyopathy
-patient has findings of EF of 29% which is new to him.
- Etiology unclear
-Continue with fluid management with hemodialysis.
-No plans for cardiac catheterization. Will not change outcomes
- GDMT medications
#Large sacral decubitus ulcer
-unstageable-continue with wound care
# Anemia of chronic disease
- Initial hemoglobin was 10 and down in 8s which has been stable
- No obvious external bleeding. Heme test still pending.Stool brown.
- Iron studies suggest anemia of chronic disease
- Continue to follow H&H for now and aim to keep it more than 7.
#chronic hyponatremia
#ESRD on Dialysis.
# History of kidney transplant
- Continue with hemodialysis support
- Continue with his home regimen and fluid restriction.
- Per history failed renal transplant
--on tacrolimus, continue per renal
# Transient staring spell
- CT head shows small transcortical infarct in right frontal lobe which is new from 2022.
- He has intracranial arterial atherosclerosis which is expected with his renal disease.
- Continue with statins.
# Essential Hypertension - stable, Continue metoprolol, Norvasc
#Insomnia - chronic, continue melatonin
# Hyperlipidemia - Chronic - continue statin
# Gout - chronic - continue Febuxostat
#neuropathy - chronic - Cont gabapentin
DNR
DVT ppx: Eliquis
Palliative care involved. Patient's , Chelsea, confirms CODE STATUS is DNR, does not want to pursue feeding tubes if needed, goals of care restorative for now, not yet ready to pursue hospice care
DNR/DNI
Total time spent with patient encounter 52 minutes.
Anticipated Discharge: > 48 hours
Subjective/Interval History
-
Date of Service: December 01, 2024
Patient was seen and examined at bedside this morning. No acute events overnight.
Objective Data
-
Labs:
Laboratory Results
12/01/24
12:48
Sodium 131 L
Potassium 4.0
Chloride 98
Carbon Dioxide 30
Vital Signs:
Vital Signs
Temp Pulse Resp BP Pulse Ox
97.7 F 119 15 98/68 99
12/01/24 11:13 12/01/24 10:00 12/01/24 10:00 12/01/24 10:00 12/01/24 08:00
I&O
11/30/24 12/01/24 12/02/24
06:59 06:59 06:59
Intake Total 230 / 230 290 / 290
Balance 230 / 230 290 / 290
Review of Systems
-
History Source: Patient
All other systems: Reviewed and negative
Physical Exam
-
General: No Apparent Distress
--- NOTE | 2024-12-01 15:10 | W.PN.NEPH.HD ---
Assessment
-
pt seen during HD
vitals stable with midodrine
UF as tolerated to EDW, all edema may not be amenable for UF
possible palpable trasnplant kidney right lower abd-non tender
CVC functions well
Progress Note - Hemodialysis
-
Date of Service: December 01, 2024
Duration: 30 minutes and 3 hours
Potassium Bath: 3
Calcium Bath: 2.5
Opti-Dialyzer: 160
Ultrafiltration: Other (1.5-2.5kg)
Blood Flow: 400
Dialysate Flow: 600
Heparin: no
EPO: [id number]
--- NOTE | 2024-12-01 15:43 | CM ---
Following up on Patient.
RN stated that patient suppose to have cardioversion so Medical Attending/ Team reached out to the ex- to bring Medical Power of Plate Slitter And Inspector paperwork then she will give the blessing for this procedure then make him a FULL Code temporarily.
Patient is from [place].
PLAN: Return to [place]
[2024-12-01] MEDS: HEPARIN 4300 UNITS INTRACATH (16:05)
[2024-12-01] MEDS: TOPROL XL PO (16:41)
[2024-12-01] MEDS: RENVELA PO (16:42)
--- NOTE | 2024-12-01 21:43 | PTCARENOTE ---
Assumed care of Pt from dayshift RN after change of shift report. Pt is arousable to verbal stimuli, engaging in conversation, forgetful at times. Took HS pills in apple sauce, tolerated without coughing. HR 102 BPM on monitor, aflutter. Q2T
maintained. Assessment as documented. call light in reach.
[2024-12-01] MEDS: LIPITOR 40 MG PO (23:22)
[2024-12-01] MEDS: MELATONIN 6 MG PO (23:23)
[2024-12-02] VITALS (11 sets, daily range): BP systolic 101–157; BP diastolic 55–141; BMI 21.2
[2024-12-02 03:42] LABS: Hematocrit 25.2 % (39.0-52.0); Hemoglobin 8.0 g/dL (13.0-18.0); Mean Corp Hgb Conc. 31.7 g/dL (33.0-37.0); Mean Corpuscular Volume 95.5 fL (80.0-94.0); Nucleated Red Blood Cells % 0 % (-); Platelet Count 251 10^3/uL (130-400); Red Cell Dist. Width 21.8 % (11.5-14.5)
[2024-12-02 04:24] LABS: Blood Urea Nitrogen 13 mg/dl (9-20); Calcium 8.1 mg/dl (8.4-10.2); Carbon Dioxide 31 mmol/L (22-30); Chloride 98 mmol/L (98-107); Estimated Creatinine Clearance 29 ml/min; Glucose 87 mg/dl (70-99); Potassium 3.6 mmol/L (3.5-5.1); Sodium 132 mmol/L (135-145); eGFR 30.28
[2024-12-02] MEDS: ZOSYN 50 IV ×3 (04:29→21:13)
[2024-12-02] MEDS: ELIQUIS 10 MG PO ×2 (07:36→21:13)
[2024-12-02] MEDS: NEURONTIN 100 MG PO ×2 (07:37→21:14)
[2024-12-02] MEDS: MAGNESIUM OXIDE 400 MG PO ×2 (07:37→21:14)
[2024-12-02] MEDS: PACERONE 400 MG PO ×2 (07:38→21:13)
[2024-12-02] MEDS: PEPCID 20 MG PO (07:39)
[2024-12-02] MEDS: RENVELA 800 MG PO ×2 (07:40→17:20)
[2024-12-02] MEDS: PROGRAF 2 MG PO (07:40)
[2024-12-02] MEDS: SANTYL OINTMENT 1 APPLIC TOPICAL (07:40)
[2024-12-02] MEDS: TOPROL XL 25 MG PO (07:41)
[2024-12-02] MEDS: ULORIC 40 MG PO (07:41)
--- NOTE | 2024-12-02 11:54 | WOUNDNOTE ---
[facility] RN NOTE: Followed up with patient for multiple wounds with RNFly. Patient with multiple comorbidities, pain and lethargy. Patient admitted with multiple DTI's and unstageable PI. LE edematous with multiple DTI of left lateral ankle and foot
and right leg. The DTI of left LE appear stable when compared with visit on 11/23. The right leg DTI is now open and shallow with some sanguinous drainage. Will add adaptic to wound care order and change daily. The right proximal wound continues to be
covered with 100% slough. Will recommend use of Hydrogel to this wound daily. Sacral wound is 90% covered with adherent eschar with some open areas and non-blanchable skin around wound. The buttocks has multiple open areas likely as the result of
MASD as patient is frequently incontinent of loose stools. TT Dr. Lange to plan wound care around goals of care. Per Dr Lange, his plan is to talk to and patient regarding goals of care to determine if a surgical consult is
warranted for sacral wound. Until a decision is made the plan is to continue use of Santyl for sacral wound. Due to pain of LE, fiberfilled boots not ordered for patient, as he wound not be able to tolerate. Patient's heels were blanchable red and
adhesive foams were reapplied. Heels off-loaded with pillows under calves. Continue all off-loading measures including use of additional air cushion when positioning patient. Patient demonstrates poor mobility and is currently NPO due to planned
procedure. He is on a [facility] [employer] and turning schedule. ZAFAR Cortes given update. Patient has several comorbidities including ESRD. Wounds may worsen and new wounds may develop even with optimal care. Will update order and follow as needed.
--- NOTE | 2024-12-02 11:55 | PTCARENOTE ---
Report called to Visual Developer RN. Pt to sugar laboratory assistant via bed.
[2024-12-02] MEDS: RENVELA PO (12:10)
--- NOTE | 2024-12-02 12:29 | W.PN.HOSP.TC ---
Today's Communication/Plan
-
Assessment / Plan
Assessment / Plan
General: No Apparent Distress, chronically ill-appearing
HEENT: NormoCephalic, Moist mucous membranes, Atraumatic
Respiratory: Clear and Non Labored Respirations
Cardiac: regular rhythm, heart rate around 120
GI: Soft, Non Tender, Non Distended, right lower quadrant renal transplant site nontender
Musculoskeletal: Bilateral lower extremity edema greater than left, right chest PermCath
Skin: Significant sacral wound with dressing in place
: NO Jacob
Neuro: Awake, Alert, intermittently confused
Psych: Calm and cooperative
#chest pain
Asymptomatic now
- Likely multifactorial due to rapid ventricular rate, PE, right pleural effusion with pneumonia
-Continue with amiodarone for rapid ventricular rate
-Continue anticoagulation with Eliquis for DVT/PE
#Atrial flutter with RVR
-unknown duration
-noted in the post renal transplant situation per cardiology note.
-[id number] score is at least 3 with hypertension and age.
- Persistent supraventricular rhythm with heart rate around 120
- Have transitioned IV amiodarone to oral 400 mg twice daily, continuing Toprol-XL 25 mg daily, although heart rate still poorly controlled
- Goals of care are currently restorative although CODE STATUS confirmed DNR
- Tentatively planning NUBIA/cardioversion during this admission
# Sepsis
- Possibilities include right lung pneumonia and sacral decubitus ulcer
- Remains tachycardic and borderline hypotensive
- Leukocytosis resolved, afebrile since 11/26
- Continue local wound care
- Not bacteremic and MRSA screen negative. Continue with Zosyn
- Will need to further clarify goals of care after which we will pursue surgical evaluation if in line with goals of care
# Extensive right leg DVT with PE.
- No right ventricular strain on the CT chest.
- Spoke with patient's who is aware of the seriousness of the patient's condition but not ready to pursue hospice care, goals are still restorative, CODE STATUS confirmed DNR
- Anticoagulation switched to Eliquis 11/30
# Large right pleural effusion
-unclear if secondary to underlying pneumonia or PE. Exudative by protein criteria . CX neg and PH doesn't suggest empyema. Follow for now
#New cardiomyopathy
- Echocardiogram on 11/23/2024 reveals severely reduced LVEF of 29% with global hypokinesis
- Unclear etiology
- Continue with fluid management with hemodialysis.
- No plans for cardiac catheterization. Will not change outcomes
- GDMT as tolerated
#Large sacral decubitus ulcer
- unstageable
- continue with wound care
- Will need to further clarify goals of care after which we will pursue surgical evaluation if in line with goals of care
# Anemia of chronic disease
- Initial hemoglobin was 10 and down in 8s which has been stable
- No obvious external bleeding. Heme test still pending.Stool brown.
- Iron studies suggest anemia of chronic disease
- Continue to follow H&H for now and aim to keep it more than 7.
#chronic hyponatremia
#ESRD on Dialysis.
# History of kidney transplant
- Continue with hemodialysis support
- Continue with his home regimen and fluid restriction.
- Per history failed renal transplant
--on tacrolimus, continue per renal
# Transient staring spell
- CT head shows small transcortical infarct in right frontal lobe which is new from 2022.
- He has intracranial arterial atherosclerosis which is expected with his renal disease.
- Continue with statins.
# Essential Hypertension - stable, Continue metoprolol, Norvasc
#Insomnia - chronic, continue melatonin
# Hyperlipidemia - Chronic - continue statin
# Gout - chronic - continue Febuxostat
#neuropathy - chronic - Cont gabapentin
DNR
DVT ppx: Eliquis
Palliative care involved. Patient's , Chelsea, confirms CODE STATUS is DNR, does not want to pursue feeding tubes if needed, goals of care restorative for now, not yet ready to pursue hospice care
DNR/DNI
Total time spent with patient encounter 56 minutes.
Anticipated Discharge: > 48 hours
Subjective/Interval History
-
Date of Service: December 02, 2024
Patient was seen and examined at bedside this morning. Heart rate remains persistently around 120. Tentative plan for NUBIA/cardioversion.
Objective Data
-
Labs:
Laboratory Results
12/02/24
03:25
WBC 10.0
Hgb 8.0 L
Hct 25.2 L
Plt Count 251
Sodium 132 L
Potassium 3.6
Chloride 98
Carbon Dioxide 31 H
BUN 13
Creatinine 2.2 H
Glucose 87
Calcium 8.1 L
Vital Signs:
Vital Signs
Temp Pulse Resp BP Pulse Ox
97.9 F 112 20 109/69 98
12/02/24 11:00 12/02/24 10:00 12/02/24 10:00 12/02/24 10:00 12/02/24 10:56
I&O
12/01/24 12/02/24 12/03/24
06:59 06:59 06:59
Intake Total 290 / 290 575 / 575
Balance 290 / 290 575 / 575
Review of Systems
-
History Source: Patient
All other systems: Reviewed and negative
Skin: Reports Sores (Painful sacral wound)
Physical Exam
-
General: Appears Chronically Ill
--- NOTE | 2024-12-02 13:51 | PTCARENOTE ---
Pt returned from [place]. Drowsy but arousable. NSR with rates in the 60-70's.
--- NOTE | 2024-12-02 13:52 | W.PN.NEPH.PH ---
Today's Communication / Plan
-
HD tomorrow
Assessment/Plan
-
Impression:
Chest pain tachycardia hypoxia
Right lower leg DVT
ESRD MWF ([facility] ?)
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
Hypertension
History of failed renal transplant from 2021 (remains on low-dose tacrolimus)
Hyperphosphatemia
Anemia
Plan:
Bp labile on midodrine
AVF not functional, CVC functioning
suspect palpable transplant kidney on exam
renal diet and FR
HD tomorrow
transfuse prn
-
-
Date of Service: December 02, 2024
CC / HPI / ROS
-
Chief Complaint:
ESRD, failed KTP
History of Present Illness:
ESRD Jose day Friday
tolerated HD yesterday
no fever
BP labile on midodrine
hgb low 8
Review of Systems:
offers no complaints
no sob or cp
no fever
Labs
-
Labs:
WBC 10.0 10^3/uL (4.8-10.8) 12/02/24 03:25
RBC 2.64 10^6/uL (4.70-6.10) L 12/02/24 03:25
Hgb 8.0 g/dL (13.0-18.0) L 12/02/24 03:25
Hct 25.2 % (39.0-52.0) L 12/02/24 03:25
Plt Count 251 10^3/uL (130-400) 12/02/24 03:25
Sodium 132 mmol/L (135-145) L 12/02/24 03:25
Potassium 3.6 mmol/L (3.5-5.1) 12/02/24 03:25
Chloride 98 mmol/L (98-107) 12/02/24 03:25
Carbon Dioxide 31 mmol/L (22-30) H 12/02/24 03:25
BUN 13 mg/dl (9-20) 12/02/24 03:25
Creatinine 2.2 mg/dL (0.7-1.3) H 12/02/24 03:25
eGFR 30.28 12/02/24 03:25
Glucose 87 mg/dl (70-99) 12/02/24 03:25
Calcium 8.1 mg/dl (8.4-10.2) L 12/02/24 03:25
Albumin 2.6 g/dl (3.5-5.0) L 11/21/24 14:05
Physical Exam
-
Vital Signs:
Vital Signs
Temp Pulse Resp BP Pulse Ox
97.9 F 112 20 109/69 98
12/02/24 11:00 12/02/24 10:00 12/02/24 10:00 12/02/24 10:00 12/02/24 10:56
Cardiovascular:: Regular rate and rhythm
Respiratory:: Bilateral: CTA (decreased BS)
Lung Excursion:: Normal
Abdomen:: Nontender and Soft (palpable transplant kidney right LQ)
Bowel Sounds:: Normal
Extremity Edema:: +2: Bilateral:
Jacob Catheter: No
--- NOTE | 2024-12-02 14:19 | W.PN.CD ---
Today's Communication / Plan
-
S/p DCCV in SR
Amio to be changed to 200 mg daily on d/c
metop 25 cont
cont Eliquis
Impression / Plan
-
Impression/Plan: 74 y/o male with ESRD s/p failed renal TX, now on HD, AF, HTN, dementia with profound clinical decline and a sacral decubitus ulcer admitted from [facility] with 'chest pain' but now asymptomatic, but found to meet SIRS/sepsis
criteria, subsequently diagnosed with acute PE.
#Atrial flutter s/p DCCV
-Duration unknown.
-Remain in SR
- Cont amio until D/c then go to amio 200 daily
- cont metop 25 mg
-[id number] = 3 (HTN and age x 2).
-cont po Eliquis
-d/w Dr Lange --family not ready to pursue hospice, he is DNR/DNI/No feeding tube
-in SR
#Cardiomyopathy
-New diagnosis.
-LVEF 29%.
-Etiology uncertain with multiple potential sources.
-No role for cardiac catheterization.
-GDMT as hemodynamics/BP will tolerate:
-Diuretics: Volume managed with RECONCILER.
-Beta debbie: Metoprolol succinate 25 mg daily.
-ACEI/ARB/ARNi: On hold due to ESRD,
-MRA: On hold due to ESRD,
-SGLT2i: On hold due to ESRD.
-ICD: Not currently indicated.
#Presumed Sepsis
-Acute, threat to life.
-Etiology uncertain with multiple potential sources of infection (tunneled line, sacral decubitus ulcer, PNA with pleural effusion).
-Thoracentesis for 1100 mL of straw colored fluid (borderline positive Light's criteria: protein ratio = 0.5; LDH ratio = 0.52).
-Abx per primary team
-Improving?
#PE/RLE DVT
-Acute, threat to life.
-now on Eliquis
#Chest pain he was initially seen for atypical chest pain.
-resolved
#ESRD
#Progressive functional decline
#Progressive memory decline
#Long standing HTN
#Hx of ETOH, heavy in past
#Sacral Decub
Subjective/Interval History:
Confused
DATA:
TTE, 11/23/2024:
SUMMARY
1. Severely reduced left ventricular systolic function with global hypokinesis. LVEF 29%.
2. Moderate concentric left ventricular hypertrophy.
3. Low-flow low gradient aortic stenosis (peak/mean 28/18 mmHg, EDDIE 0.9 cm², DVI 0.3 cm).
4. Mild mitral stenosis.
5. Mild mitral regurgitation.
6. No prior study available for comparison.
Physical Exam
Vital Signs/Labs
Vital Signs
Temp Pulse Resp BP Pulse Ox
97.9 F 74 20 109/64 99
12/02/24 11:00 12/02/24 14:00 12/02/24 14:00 12/02/24 14:00 12/02/24 14:00
12/01/24 12/02/24 12/03/24
06:59 06:59 06:59
Actual Weight 155 lb 10.342 oz 156 lb 7 oz
12/02/24 03:25
12/02/24 03:25
APTT Cancelled 11/30/24 20:34
Magnesium 2.2 mg/dl (1.6-2.3) 11/23/24 06:10
Physical Exam
Constitutional: No acute distress and Confusion
EENT: Anicteric
Cardiovascular: Rhythm/rate is irregular
Respiratory: Respiratory effort normal and Lungs clear to auscul.
GI: Soft
Neuro/Psych: Other (oriented to place and name )
Data Reviewed
-
Date of Service: December 02, 2024
Medical Decision Making: Reviewed Test Results
EKG: Tracing Personally Visualized and interpreted (sr)
Echo: Tracing Personally Visualized and interpreted
Labs: Labs Reviewed by me
--- NOTE | 2024-12-02 15:04 | W.PN.UPDATE ---
Update Note
Progress Note Update
Spoke with patient's , Chelsea, regarding the successful cardioversion today with much improved heart rate. We also discussed his progressively worsening sacral wound and the need for potential surgical intervention if goals of care remain
restorative. We revisited the idea that he is certainly appropriate for hospice care at this point although Chelsea has not been ready to make that transition yet. However, considering the patient's multiple comorbidities and the ongoing pain he has
been experiencing due to multiple issues, not the least of which is his worsening sacral wound, she is now more open to the idea of transitioning to hospice care. She would like to think about this overnight and we will discuss it further tomorrow.
--- NOTE | 2024-12-02 15:23 | CM ---
Following up on Patient.
Patient has cardioversion this morning so now surgery is consulted and may proceed with some procedure with the sacral wound or not. Liaison Avirl updated that discharge could be soon.
PLAN: Return to [place].
[2024-12-02] MEDS: MELATONIN 6 MG PO (21:14)
[2024-12-02] MEDS: LIPITOR 40 MG PO (21:14)
[2024-12-03] VITALS (44 sets, daily range): BP systolic 52–234; BP diastolic 24–202; BMI 21.1
[2024-12-03] MEDS: ZOSYN 50 IV (04:29)
[2024-12-03 04:53] LABS: Hematocrit 25.6 % (39.0-52.0); Hemoglobin 7.9 g/dL (13.0-18.0); Mean Corp Hgb Conc. 30.9 g/dL (33.0-37.0); Mean Corpuscular Volume 96.6 fL (80.0-94.0); Nucleated Red Blood Cells % 0 % (-); Platelet Count 238 10^3/uL (130-400); Red Cell Dist. Width 21.6 % (11.5-14.5)
[2024-12-03 05:33] LABS: Blood Urea Nitrogen 16 mg/dl (9-20); Calcium 7.9 mg/dl (8.4-10.2); Carbon Dioxide 30 mmol/L (22-30); Chloride 98 mmol/L (98-107); Estimated Creatinine Clearance 20 ml/min; Glucose 97 mg/dl (70-99); Potassium 3.6 mmol/L (3.5-5.1); Sodium 131 mmol/L (135-145); eGFR 20.07
[2024-12-03] MEDS: SANTYL OINTMENT 1 APPLIC TOPICAL (08:08)
[2024-12-03] MEDS: NEURONTIN 100 MG PO ×2 (08:11→20:03)
[2024-12-03] MEDS: ELIQUIS 10 MG PO ×2 (08:11→20:04)
[2024-12-03] MEDS: MAGNESIUM OXIDE 400 MG PO ×2 (08:12→20:03)
[2024-12-03] MEDS: RENVELA PO ×3 (08:14→16:45)
[2024-12-03] MEDS: PROGRAF 2 MG PO (08:14)
[2024-12-03] MEDS: RETACRIT 10000 UNITS IV (09:21)
--- NOTE | 2024-12-03 10:22 | W.PN.CD ---
Today's Communication / Plan
-
Remains in SR
Amio to 200 mg daily on d/c
Cont metop 25
On Eliquis
We will sign off please call w/ questions/concerns.
Impression / Plan
-
Impression/Plan: 74 y/o male with ESRD s/p failed renal TX, now on HD, AF, HTN, dementia with profound clinical decline and a sacral decubitus ulcer admitted from [facility] with 'chest pain' but now asymptomatic, but found to meet SIRS/sepsis
criteria, subsequently diagnosed with acute PE.
#Atrial flutter s/p DCCV
-Remain in SR
- Cont amio until D/c then go to amio 200 daily
- cont metop 25 mg
-[id number] = 3 (HTN and age x 2).
-cont po Eliquis
-d/w Dr Lange --family not ready to pursue hospice, he is DNR/DNI/No feeding tube
#Cardiomyopathy
-New diagnosis.
-LVEF 29%.
-Etiology uncertain with multiple potential sources.
-No role for cardiac catheterization.
-GDMT as hemodynamics/BP will tolerate:
-Diuretics: Volume managed with PROMOTIONS PRODUCER.
-Beta debbie: Metoprolol succinate 25 mg daily.
-ACEI/ARB/ARNi: On hold due to ESRD,
-MRA: On hold due to ESRD,
-SGLT2i: On hold due to ESRD.
-ICD: Not currently indicated.
#Presumed Sepsis
-per primary
#PE/RLE DVT
-Acute, threat to life.
-now on Eliquis
#Chest pain he was initially seen for atypical chest pain.
-resolved
#ESRD
#Progressive functional decline
#Progressive memory decline
#Long standing HTN
#Hx of ETOH, heavy in past
#Sacral Decub
Subjective/Interval History:
Better mentation today; mentation appears to waxes/wanes
DATA:
TTE, 11/23/2024:
SUMMARY
1. Severely reduced left ventricular systolic function with global hypokinesis. LVEF 29%.
2. Moderate concentric left ventricular hypertrophy.
3. Low-flow low gradient aortic stenosis (peak/mean 28/18 mmHg, EDDIE 0.9 cm², DVI 0.3 cm).
4. Mild mitral stenosis.
5. Mild mitral regurgitation.
6. No prior study available for comparison.
Physical Exam
Vital Signs/Labs
Vital Signs
Temp Pulse Resp BP Pulse Ox
98.8 F 78 15 99/80 96
12/03/24 07:00 12/03/24 09:10 12/03/24 09:10 12/03/24 09:10 12/03/24 08:00
12/02/24 12/03/24 12/04/24
06:59 06:59 06:59
Actual Weight 156 lb 7 oz 155 lb 6 oz
12/03/24 04:36
12/03/24 04:36
APTT Cancelled 11/30/24 20:34
Magnesium 2.2 mg/dl (1.6-2.3) 11/23/24 06:10
Physical Exam
Constitutional: No acute distress and Confusion (mild)
EENT: Anicteric
Cardiovascular: Rhythm & rate is regular
Respiratory: Respiratory effort normal
GI: Soft
Neuro/Psych: Alert and Oriented
Data Reviewed
-
Date of Service: December 03, 2024
Medical Decision Making: Reviewed Test Results
EKG: Tracing Personally Visualized and interpreted (sr)
Echo: Tracing Personally Visualized and interpreted
Labs: Labs Reviewed by me
--- NOTE | 2024-12-03 11:19 | W.PN.HOSP.TC ---
Today's Communication/Plan
-
Assessment / Plan
Assessment / Plan
General: No Apparent Distress, chronically ill-appearing
HEENT: NormoCephalic, Moist mucous membranes, Atraumatic
Respiratory: Clear and Non Labored Respirations
Cardiac: regular rhythm, heart rate around 70
GI: Soft, Non Tender, Non Distended, right lower quadrant renal transplant site nontender
Musculoskeletal: Bilateral lower extremity edema greater than left, right chest PermCath
Skin: Significant sacral wound with dressing in place
: NO Jacob
Neuro: Awake, Alert, intermittently confused
Psych: Calm and cooperative
# Sepsis
- Possibilities include right lung pneumonia and sacral decubitus ulcer
- Heart rate now well-controlled after cardioversion, remains borderline hypotensive requiring midodrine
- Leukocytosis resolved, afebrile since 11/26
- Continue local wound care
- Not bacteremic and MRSA screen negative.
- Will transition to oral antibiotic regimen to complete a total 14-day course
- Patient is certainly hospice appropriate, have been discussing this with with the patient and his (Chelsea) who are considering this possibility
- Will need to further clarify goals of care prior to pursuing surgical evaluation if in line with goals of care
#Large sacral decubitus ulcer
- unstageable
- continue with wound care
- Will need to further clarify goals of care prior to pursuing surgical evaluation if in line with goals of care
# Extensive right leg DVT with PE.
- No right ventricular strain on the CT chest.
- Patient is certainly hospice appropriate, have been discussing this with with the patient and his (Chelsea) who are considering this possibility
- Anticoagulation switched to Eliquis 11/30
#chest pain
- Asymptomatic now, heart rate currently controlled
- Likely multifactorial due to rapid ventricular rate, PE, right pleural effusion with pneumonia
-Continue with amiodarone
-Continue anticoagulation with Eliquis for DVT/PE
#Atrial flutter with RVR
- unknown duration, noted in the post renal transplant situation per cardiology note
- [id number] score is at least 3 with hypertension and age
- Now in sinus rhythm with heart rate now well-controlled around 70 bpm after cardioversion 12/02
- Continue amiodarone for 100 mg p.o. twice daily and Toprol-XL 25 mg p.o. daily
# Large right pleural effusion
-unclear if secondary to underlying pneumonia or PE. Exudative by protein criteria . CX neg and PH doesn't suggest empyema. Follow for now
#New cardiomyopathy
- Echocardiogram on 11/23/2024 reveals severely reduced LVEF of 29% with global hypokinesis
- Unclear etiology
- Continue with fluid management with hemodialysis.
- No plans for cardiac catheterization. Will not change outcomes
- GDMT as tolerated
- Patient is certainly hospice appropriate, have been discussing this with with the patient and his (Chelsea) who are considering this possibility
# Anemia of chronic disease
- Initial hemoglobin was 10 and down in 8s which has been stable
- No obvious external bleeding. Heme test still pending.Stool brown.
- Iron studies suggest anemia of chronic disease
- Continue to follow H&H for now and aim to keep it more than 7.
#chronic hyponatremia
#ESRD on Dialysis.
# History of kidney transplant
- Continue with hemodialysis support
- Continue with his home regimen and fluid restriction.
- Per history failed renal transplant
- on tacrolimus, continue per renal
# Transient staring spell
- CT head shows small transcortical infarct in right frontal lobe which is new from 2022.
- He has intracranial arterial atherosclerosis which is expected with his renal disease.
- Patient is intermittently confused, he reports he has been unable to maintain his train of thought for many months now
- Continue with statins.
# Essential Hypertension - stable, Continue metoprolol, Norvasc
#Insomnia - chronic, continue melatonin
# Hyperlipidemia - Chronic - continue statin
# Gout - chronic - continue Febuxostat
#neuropathy - chronic - Cont gabapentin
DNR
DVT ppx: Eliquis
Patient's , Chelsea, confirms CODE STATUS is DNR, does not want to pursue feeding tubes if needed, goals of care restorative for now
- Patient is certainly hospice appropriate, have been discussing this with with the patient and his (Chelsea) who are considering this possibility
DNR/DNI
Total time spent with patient encounter 58 minutes.
Anticipated Discharge: 24 - 48 hours
Subjective/Interval History
-
Date of Service: December 03, 2024
Patient was seen and examined at bedside this morning. Receiving dialysis. Reports ongoing pain especially from his sacral wound. Is conversant but says he is unable to maintain his train of thought he would about simple things, which has been
going on for many months now.
Objective Data
-
Labs:
Laboratory Results
12/03/24
04:36
WBC 10.8
Hgb 7.9 L
Hct 25.6 L
Plt Count 238
Sodium 131 L
Potassium 3.6
Chloride 98
Carbon Dioxide 30
BUN 16
Creatinine 3.1 H
Glucose 97
Calcium 7.9 L
Vital Signs:
Vital Signs
Temp Pulse Resp BP Pulse Ox
98.8 F 78 15 99/80 96
12/03/24 11:01 12/03/24 09:10 12/03/24 09:10 12/03/24 09:10 12/03/24 08:00
I&O
12/02/24 12/03/24 12/04/24
06:59 06:59 06:59
Intake Total 575 / 575 50 / 50
Balance 575 / 575 50 / 50
Review of Systems
-
History Source: Patient
All other systems: Reviewed and negative
Skin: Reports Sores (Painful sacral wound)
Physical Exam
-
General: Appears Chronically Ill
--- NOTE | 2024-12-03 12:26 | CM ---
Following up on Patient.
No change, still will work on the tasks from the ethics committee yesterday. LIBORIO Edmondson met with the dispenser operator who stated that even though the would was debrided the other day, it looks worse to her.
PLAN: DADA, KAVYA.
--- NOTE | 2024-12-03 12:38 | W.PN.NEPH.HD ---
Assessment
-
Seen on HD. no new complaints. VSS, access ok
Progress Note - Hemodialysis
-
Date of Service: December 03, 2024
Duration: 30 minutes and 3 hours
Potassium Bath: 3
Calcium Bath: 2.5
Opti-Dialyzer: 160
Ultrafiltration: Other (2kg)
Blood Flow: 400
Dialysate Flow: 600
Heparin: 0
EPO: [id number] units
[2024-12-03] MEDS: TOPROL XL PO (13:07)
[2024-12-03] MEDS: ULORIC 40 MG PO (13:08)
[2024-12-03] MEDS: AUGMENTIN 500 MG/125 MG 1 TABLET PO ×2 (13:08→20:04)
[2024-12-03] MEDS: PACERONE 400 MG PO ×2 (13:09→20:04)
--- NOTE | 2024-12-03 14:46 | CM ---
Addendum entered by Debo Hernandez 12/03/24 17:55:
Medical Attending reached out to LIBORIO Edmondson to say that he had a long conversation with the (ex?) who is not agreeable to for hospice.
LIBORIO Edmondson reached out to [facility] liaalecia Lozano about the process of hospice. Marta will obtain the hospice company for LIBORIO Rogelioleon and work out the logistics for this to happen for this patient, but shared that this will not take
place over the weekend re: a discharge back to [facility]. There is getting consents signed, scheduled a RN from the hospice agency before the patient returns, etc.
This process is initiated and LIBORIO Edmondson will continue on Friday. LIBORIO Edmondson will be speak to the on Friday about next steps.
PLAN: Hospice at [facility].
Original Note:
Following up on Patient. RN stated that the Medical Team is still working on if he will have a wound debridement or not, thus not near ready for discharge.
PLAN: Return to [facility] when ready.
--- NOTE | 2024-12-03 16:35 | W.PN.UPDATE ---
Update Note
Progress Note Update
Spoke at length with the patient's about goals of care and patient's poor recent quality of life including multiple prolonged hospitalizations. The patient does not have the capacity to make medical decisions for himself. The patient's ,
Chelsea, would like to pursue hospice care at this time. Preferably this would be arranged at his previous living facility. Case management has been consulted for hospice care arrangements.
[2024-12-03] MEDS: MELATONIN 6 MG PO (20:03)
[2024-12-03] MEDS: LIPITOR 40 MG PO (20:03)
[2024-12-04] VITALS (12 sets, daily range): BP systolic 106–129; BP diastolic 59–104; BMI 21.1
[2024-12-04 04:10] LABS: Hematocrit 26.8 % (39.0-52.0); Hemoglobin 8.3 g/dL (13.0-18.0); Mean Corp Hgb Conc. 31.0 g/dL (33.0-37.0); Mean Corpuscular Volume 94.0 fL (80.0-94.0); Nucleated Red Blood Cells % 0 % (-); Platelet Count 254 10^3/uL (130-400); Red Cell Dist. Width 21.5 % (11.5-14.5)
[2024-12-04 04:35] LABS: Blood Urea Nitrogen 12 mg/dl (9-20); Calcium 7.8 mg/dl (8.4-10.2); Carbon Dioxide 30 mmol/L (22-30); Chloride 100 mmol/L (98-107); Estimated Creatinine Clearance 26 ml/min; Glucose 100 mg/dl (70-99); Potassium 3.6 mmol/L (3.5-5.1); Sodium 132 mmol/L (135-145); eGFR 27.28
[2024-12-04] MEDS: PROGRAF 2 MG PO (09:28)
[2024-12-04] MEDS: AUGMENTIN 500 MG/125 MG 1 TABLET PO ×2 (09:29→21:04)
[2024-12-04] MEDS: PEPCID 20 MG PO (09:30)
[2024-12-04] MEDS: RENVELA PO ×3 (09:30→17:05)
[2024-12-04] MEDS: TOPROL XL PO (09:30)
[2024-12-04] MEDS: SANTYL OINTMENT 1 APPLIC TOPICAL (09:30)
[2024-12-04] MEDS: PACERONE 400 MG PO ×2 (09:31→21:05)
[2024-12-04] MEDS: ELIQUIS 10 MG PO ×2 (09:32→21:07)
[2024-12-04] MEDS: ULORIC 40 MG PO (09:32)
[2024-12-04] MEDS: NEURONTIN 100 MG PO ×2 (09:32→21:04)
[2024-12-04] MEDS: MAGNESIUM OXIDE 400 MG PO ×2 (09:32→21:04)
--- NOTE | 2024-12-04 11:19 | W.PN.NEPH.PH ---
Today's Communication / Plan
-
hospice
Assessment/Plan
-
Impression:
Chest pain tachycardia hypoxia
Right lower leg DVT
ESRD MWF ([facility] ?)
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
Hypertension
History of failed renal transplant from 2021 (remains on low-dose tacrolimus)
Hyperphosphatemia
Anemia
Plan:
continue midodrine
AVF nonfunctional, CVC functioning
for hospice
no further HD
-
-
Date of Service: December 04, 2024
CC / HPI / ROS
-
Chief Complaint:
ESRD, failed KTP
History of Present Illness:
ESRD Friday
tolerated HD yesterday
no fever
BP labile on midodrine
Review of Systems:
offers no complaints
no sob or cp
no fever
Labs
-
Labs:
WBC 11.4 10^3/uL (4.8-10.8) H 12/04/24 03:57
RBC 2.85 10^6/uL (4.70-6.10) L 12/04/24 03:57
Hgb 8.3 g/dL (13.0-18.0) L 12/04/24 03:57
Hct 26.8 % (39.0-52.0) L 12/04/24 03:57
Plt Count 254 10^3/uL (130-400) 12/04/24 03:57
Sodium 132 mmol/L (135-145) L 12/04/24 03:57
Potassium 3.6 mmol/L (3.5-5.1) 12/04/24 03:57
Chloride 100 mmol/L (98-107) 12/04/24 03:57
Carbon Dioxide 30 mmol/L (22-30) 12/04/24 03:57
BUN 12 mg/dl (9-20) 12/04/24 03:57
Creatinine 2.4 mg/dL (0.7-1.3) H 12/04/24 03:57
eGFR 27.28 12/04/24 03:57
Glucose 100 mg/dl (70-99) H 12/04/24 03:57
Calcium 7.8 mg/dl (8.4-10.2) L 12/04/24 03:57
Albumin 2.6 g/dl (3.5-5.0) L 11/21/24 14:05
Physical Exam
-
Vital Signs:
Vital Signs
Temp Pulse Resp BP Pulse Ox
98.9 F 83 11 113/68 94
12/04/24 07:56 12/04/24 10:00 12/04/24 10:00 12/04/24 10:00 12/03/24 20:51
Cardiovascular:: Regular rate and rhythm
Respiratory:: Bilateral: Coarse
Lung Excursion:: Normal
Abdomen:: Nontender and Soft
Bowel Sounds:: Normal
Extremity Edema:: None: Bilateral:
--- NOTE | 2024-12-04 14:35 | W.PN.HOSP.TC ---
Today's Communication/Plan
-
Assessment / Plan
Assessment / Plan
General: No Apparent Distress, chronically ill-appearing
HEENT: NormoCephalic, Moist mucous membranes, Atraumatic
Respiratory: Clear and Non Labored Respirations
Cardiac: regular rhythm, heart rate around 80
GI: Soft, Non Tender, Non Distended, right lower quadrant renal transplant site nontender
Musculoskeletal: Bilateral lower extremity edema greater than left, right chest PermCath
Skin: Significant sacral wound with dressing in place
: NO Jacob
Neuro: Somnolent but arousable, intermittently confused
Psych: Calm and cooperative
# Sepsis
- Possibilities include right lung pneumonia and sacral decubitus ulcer
- Heart rate now well-controlled after cardioversion, remains borderline hypotensive requiring midodrine
- Leukocytosis resolved, afebrile since 11/26
- Continue local wound care
- Not bacteremic and MRSA screen negative.
- Transitioned to oral antibiotic regimen to complete a total 14-day course
- Patient is certainly hospice appropriate, have been discussing this with with the patient and his (Chelsea) who are now agreeable to hospice care
- Hospice arrangements pending, plan to initiate hospice care at his living facility
#Large sacral decubitus ulcer
- unstageable
- continue with wound care
- Hospice arrangements pending
# Extensive right leg DVT with PE.
- No right ventricular strain on the CT chest.
- Anticoagulation switched to Eliquis 11/30
#chest pain
- Asymptomatic now, heart rate currently controlled
- Likely multifactorial due to rapid ventricular rate, PE, right pleural effusion with pneumonia
-Continue with amiodarone
-Continue anticoagulation with Eliquis for DVT/PE
#Atrial flutter with RVR
- unknown duration, noted in the post renal transplant situation per cardiology note
- [id number] score is at least 3 with hypertension and age
- Now in sinus rhythm with heart rate now well-controlled after cardioversion 12/02
- Continue amiodarone 400 mg p.o. twice daily and Toprol-XL 25 mg p.o. daily
# Large right pleural effusion
-unclear if secondary to underlying pneumonia or PE. Exudative by protein criteria . CX neg and PH doesn't suggest empyema. Follow for now
#New cardiomyopathy
- Echocardiogram on 11/23/2024 reveals severely reduced LVEF of 29% with global hypokinesis
- Unclear etiology
- Continue with fluid management with hemodialysis.
- No plans for cardiac catheterization. Will not change outcomes
- Hospice arrangements pending
# Anemia of chronic disease
- Initial hemoglobin was 10 and down in 8s which has been stable
- No obvious external bleeding. Heme test still pending.Stool brown.
- Iron studies suggest anemia of chronic disease
- Continue to follow H&H for now and aim to keep it more than 7.
#chronic hyponatremia
#ESRD on Dialysis.
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
- Hospice appropriate, arrangements pending for initiating hospice at his living facility
- Discontinuing dialysis
# Transient staring spell
- CT head shows small transcortical infarct in right frontal lobe which is new from 2022.
- He has intracranial arterial atherosclerosis which is expected with his renal disease.
- Patient is intermittently confused, he reports he has been unable to maintain his train of thought for many months now
- Continue with statins.
# Essential Hypertension - stable, Continue metoprolol, Norvasc
#Insomnia - chronic, continue melatonin
# Hyperlipidemia - Chronic - continue statin
# Gout - chronic - continue Febuxostat
#neuropathy - chronic - Cont gabapentin
DNR
DVT ppx: Eliquis
-Patient is hospice appropriate, have been discussing this with with the patient and his (Chelsea) who are now agreeable to hospice care
Hospice arrangements pending, plan to initiate hospice care at his living facility
Total time spent with patient encounter 54 minutes.
Anticipated Discharge: 24 - 48 hours
Subjective/Interval History
-
Date of Service: December 04, 2024
Patient was seen and examined at bedside this morning. Somnolent but arousable. Awaiting hospice arrangements at his living facility.
Objective Data
-
Labs:
Laboratory Results
12/04/24
03:57
WBC 11.4 H
Hgb 8.3 L
Hct 26.8 L
Plt Count 254
Sodium 132 L
Potassium 3.6
Chloride 100
Carbon Dioxide 30
BUN 12
Creatinine 2.4 H
Glucose 100 H
Calcium 7.8 L
Vital Signs:
Vital Signs
Temp Pulse Resp BP Pulse Ox
98.4 F 83 11 113/68 94
12/04/24 11:00 12/04/24 10:00 12/04/24 10:00 12/04/24 10:00 12/03/24 20:51
I&O
12/03/24 12/04/24 12/05/24
06:59 06:59 06:59
Intake Total 50 / 50
Balance 50 / 50
Review of Systems
-
History Source: Patient
All other systems: Reviewed and negative
Skin: Reports Sores (Painful sacral wound)
Physical Exam
-
General: Appears Chronically Ill
[2024-12-04] MEDS: LIPITOR 40 MG PO (21:05)
[2024-12-04] MEDS: MELATONIN 6 MG PO (21:05)
[2024-12-05] VITALS (11 sets, daily range): BP systolic 115–138; BP diastolic 60–93; BMI 21.0
--- NOTE | 2024-12-05 05:24 | PTCARENOTE ---
no acute events overnight. assessment and vital signs as documented. patient took pills crushed in applesauce without issue. changed linens and down. G bath done. call gilmore in reach.
[2024-12-05] MEDS: SANTYL OINTMENT 1 APPLIC TOPICAL (08:40)
[2024-12-05] MEDS: RENVELA PO ×3 (08:41→18:35)
[2024-12-05] MEDS: AUGMENTIN 500 MG/125 MG 1 TABLET PO (08:41)
[2024-12-05] MEDS: PACERONE 400 MG PO ×2 (08:42→21:36)
[2024-12-05] MEDS: ULORIC 40 MG PO (08:42)
[2024-12-05] MEDS: PROGRAF 2 MG PO (08:43)
[2024-12-05] MEDS: NEURONTIN 100 MG PO ×2 (08:45→21:45)
[2024-12-05] MEDS: MAGNESIUM OXIDE 400 MG PO ×2 (08:45→21:45)
[2024-12-05] MEDS: ELIQUIS 10 MG PO ×2 (08:45→21:36)
[2024-12-05] MEDS: TOPROL XL PO (08:45)
--- NOTE | 2024-12-05 11:12 | W.PN.NEPH.PH ---
Today's Communication / Plan
-
HD tomorrow
Assessment/Plan
-
Impression:
Chest pain tachycardia hypoxia
Right lower leg DVT
ESRD MWF ([facility] ?)
Left upper extremity AV fistula with infiltration and pseudoaneurysm now with HD catheter
Hypertension
History of failed renal transplant from 2021 (remains on low-dose tacrolimus)
Hyperphosphatemia
Anemia
Plan:
continue midodrine
AVF nonfunctional, CVC functioning
for hospice (pt has no recollection of any of those conversations)
HD tomorrow
-
-
Date of Service: December 05, 2024
CC / HPI / ROS
-
Chief Complaint:
ESRD, failed KTP
History of Present Illness:
ESRD Friday
tolerated HD friday
no fever
BP labile on midodrine
Review of Systems:
offers no complaints
no sob or cp
no fever
Labs
-
Labs:
WBC 11.4 10^3/uL (4.8-10.8) H 12/04/24 03:57
RBC 2.85 10^6/uL (4.70-6.10) L 12/04/24 03:57
Hgb 8.3 g/dL (13.0-18.0) L 12/04/24 03:57
Hct 26.8 % (39.0-52.0) L 12/04/24 03:57
Plt Count 254 10^3/uL (130-400) 12/04/24 03:57
Sodium 132 mmol/L (135-145) L 12/04/24 03:57
Potassium 3.6 mmol/L (3.5-5.1) 12/04/24 03:57
Chloride 100 mmol/L (98-107) 12/04/24 03:57
Carbon Dioxide 30 mmol/L (22-30) 12/04/24 03:57
BUN 12 mg/dl (9-20) 12/04/24 03:57
Creatinine 2.4 mg/dL (0.7-1.3) H 12/04/24 03:57
eGFR 27.28 12/04/24 03:57
Glucose 100 mg/dl (70-99) H 12/04/24 03:57
Calcium 7.8 mg/dl (8.4-10.2) L 12/04/24 03:57
Albumin 2.6 g/dl (3.5-5.0) L 11/21/24 14:05
Physical Exam
-
Vital Signs:
Vital Signs
Temp Pulse Resp BP Pulse Ox
98.2 F 74 18 125/91 94
12/05/24 11:03 12/05/24 06:00 12/05/24 06:00 12/05/24 06:00 12/04/24 22:51
Cardiovascular:: Regular rate and rhythm
Respiratory:: Bilateral: Coarse
Lung Excursion:: Normal
Abdomen:: Nontender and Soft
Bowel Sounds:: Normal
Extremity Edema:: +2: Bilateral:
--- NOTE | 2024-12-05 13:52 | W.PN.HOSP.TC ---
Today's Communication/Plan
-
Assessment / Plan
Assessment / Plan
General: No Apparent Distress, chronically ill-appearing
HEENT: NormoCephalic, Moist mucous membranes, Atraumatic
Respiratory: Clear and Non Labored Respirations
Cardiac: regular rhythm, heart rate around 75
GI: Soft, Non Tender, Non Distended, right lower quadrant renal transplant site nontender
Musculoskeletal: Bilateral lower extremity edema greater than left, right chest PermCath
Skin: Significant sacral wound with dressing in place
: NO Jacob
Neuro: Somnolent but arousable, intermittently confused
Psych: Calm and cooperative
# Sepsis
- Possibilities include right lung pneumonia and sacral decubitus ulcer
- Heart rate now well-controlled after cardioversion, remains borderline hypotensive requiring midodrine
- Leukocytosis resolved, afebrile since 11/26
- Continue local wound care
- Not bacteremic and MRSA screen negative.
- Transitioned to oral antibiotic regimen to complete a total 14-day course today 12/05
- Patient is certainly hospice appropriate, have been discussing this with with the patient and his (Chelsea) who are now agreeable to hospice care
- Hospice arrangements pending, plan to initiate hospice care at his living facility
#Large sacral decubitus ulcer
- unstageable
- continue with wound care
- Hospice arrangements pending
# Extensive right leg DVT with PE.
- No right ventricular strain on the CT chest.
- Anticoagulation switched to Eliquis 11/30
#chest pain
- Asymptomatic now, heart rate currently controlled
- Likely multifactorial due to rapid ventricular rate, PE, right pleural effusion with pneumonia
-Continue with amiodarone
-Continue anticoagulation with Eliquis for DVT/PE
#Atrial flutter with RVR
- unknown duration, noted in the post renal transplant situation per cardiology note
- [id number] score is at least 3 with hypertension and age
- Now in sinus rhythm with heart rate now well-controlled after cardioversion 12/02
- Continue amiodarone 400 mg p.o. twice daily and Toprol-XL 25 mg p.o. daily
# Large right pleural effusion
-unclear if secondary to underlying pneumonia or PE. Exudative by protein criteria . CX neg and PH doesn't suggest empyema. Follow for now
#New cardiomyopathy
- Echocardiogram on 11/23/2024 reveals severely reduced LVEF of 29% with global hypokinesis
- Unclear etiology
- Continue with fluid management with hemodialysis.
- No plans for cardiac catheterization. Will not change outcomes
- Hospice arrangements pending
# Anemia of chronic disease
- Initial hemoglobin was 10 and down in 8s which has been stable
- No obvious external bleeding. Heme test still pending.Stool brown.
- Iron studies suggest anemia of chronic disease
- Continue to follow H&H for now and aim to keep it more than 7.
#chronic hyponatremia
#ESRD on Dialysis.
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
- Hospice appropriate, arrangements pending for initiating hospice at his living facility
- Will discontinue dialysis once arrangements finalized
# Transient staring spell
- CT head shows small transcortical infarct in right frontal lobe which is new from 2022.
- He has intracranial arterial atherosclerosis which is expected with his renal disease.
- Patient is intermittently confused, he reports he has been unable to maintain his train of thought for many months now
- Continue with statins.
# Essential Hypertension - stable, Continue metoprolol, Norvasc
#Insomnia - chronic, continue melatonin
# Hyperlipidemia - Chronic - continue statin
# Gout - chronic - continue Febuxostat
#neuropathy - chronic - Cont gabapentin
DNR
DVT ppx: Eliquis
-Patient is hospice appropriate, have been discussing this with with the patient and his (Chelsea) who are now agreeable to hospice care
Hospice arrangements pending, plan to initiate hospice care at his living facility
Total time spent with patient encounter 53 minutes.
Anticipated Discharge: 24 - 48 hours
Subjective/Interval History
-
Date of Service: December 05, 2024
Patient was seen and examined at bedside this morning. Says he is hungry. Awaiting hospice arrangements.
Objective Data
-
Vital Signs:
Vital Signs
Temp Pulse Resp BP Pulse Ox
98.2 F 74 18 125/91 94
12/05/24 11:03 12/05/24 06:00 12/05/24 06:00 12/05/24 06:00 12/04/24 22:51
Review of Systems
-
Skin: Reports Sores (Painful sacral wound)
Physical Exam
-
General: No Apparent Distress and Appears Chronically Ill
[2024-12-05] MEDS: MELATONIN 6 MG PO (21:45)
[2024-12-05] MEDS: LIPITOR 40 MG PO (21:45)
[2024-12-05] MEDS: TYLENOL 650 MG PO (23:29)
[2024-12-06] VITALS (35 sets, daily range): BP systolic 79–155; BP diastolic 29–140; BMI 20.9
--- NOTE | 2024-12-06 04:03 | PTCARENOTE ---
Pt disoriented to time and place, pt drowsy and lethargic. Pt arousable to verbal stimuli. NSR on the monitor HR 70. Pt experiencing pain/discomfort while turning. PRN Tylenol administered, see MAR. Wound care cleansed and redressed as per order. Pt
incontinent of stool. Full CHG and linens changed. Frequent turning and repositioning.
[2024-12-06] MEDS: TOPROL XL PO (07:49)
--- NOTE | 2024-12-06 07:56 | W.PN.HOSP.TC ---
Today's Communication/Plan
-
see A/P
Assessment / Plan
Assessment / Plan
A/P:
# Sepsis
Possibilities include right lung pneumonia and sacral decubitus ulcer
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
Leukocytosis resolved, afebrile since 11/26
Continue local wound care
Not bacteremic and MRSA screen negative.
Transitioned to oral antibiotic regimen to complete a total 14-day course
Patient is hospice appropriate, this was discussed with the patient and his (Chelsea) who are now agreeable to hospice care
Hospice arrangements pending, plan to initiate hospice care at his living facility
# Large sacral decubitus ulcer, unstageable
continue with wound care
Hospice arrangements pending
# Extensive right leg DVT with PE.
No right ventricular strain on the CT chest.
Anticoagulation switched to Eliquis 11/30
# Chest pain
Asymptomatic now, heart rate currently controlled
Likely multifactorial due to rapid ventricular rate, PE, right pleural effusion with pneumonia
Continue with amiodarone
Continue anticoagulation with Eliquis for DVT/PE
# Atrial flutter with RVR
unknown duration
[id number] score is at least 3 with hypertension and age
Now in sinus rhythm with heart rate now well-controlled after cardioversion 12/02
Continue amiodarone 400 mg p.o. twice daily and Toprol-XL 25 mg p.o. daily
# Large right pleural effusion
unclear if secondary to underlying pneumonia or PE. Exudative by protein criteria.
# New cardiomyopathy
Echocardiogram on 11/23/2024 reveals severely reduced LVEF 29% with global hypokinesis
Unclear etiology
fluid management with hemodialysis.
No plans for cardiac catheterization. Will not change outcomes
Hospice arrangements pending
# Anemia of chronic disease
Initial hemoglobin was 10 and down in 8s which has been stable
No obvious external bleeding.
Iron studies suggest anemia of chronic disease
# Chronic hyponatremia
# ESRD on Dialysis.
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
Hospice appropriate, arrangements pending for initiating hospice at his living facility
Will discontinue dialysis once arrangements finalized
# Transient staring spell
CT head shows small transcortical infarct in right frontal lobe which is new from 2022.
He has intracranial arterial atherosclerosis which is expected with his renal disease.
Patient is intermittently confused, he reports he has been unable to maintain his train of thought for many months now
Continue with statins.
# Essential Hypertension
stable,
Continue metoprolol
# Insomnia, chronic
continue melatonin
# Hyperlipidemia, chronic
continue statin
# Gout, chronic
continue Febuxostat
# neuropathy, chronic
cont gabapentin
DNR
DVT ppx: Eliquis
Disp: Hospice at facility
called twice, calls not answered
Anticipated Discharge: 24 - 48 hours
Subjective/Interval History
-
Date of Service: December 06, 2024
Objective Data
-
Vital Signs:
Vital Signs
Temp Pulse Resp BP Pulse Ox
36.8 C 62 17 117/96 95
12/06/24 03:00 12/06/24 06:00 12/06/24 06:00 12/06/24 06:00 12/06/24 03:10
I&O
12/05/24 12/06/24 12/07/24
06:59 06:59 06:59
Intake Total 240 / 240
Balance 240 / 240
Review of Systems
-
Unable to obtain full review of systems at this time due to: Acuity
Physical Exam
-
General: No Apparent Distress, Comfortable and Appears Chronically Ill
Respiratory: Non Labored Respirations; Negative Accessory Resp Muscle Use
Cardiac: Regular Rhythm and S1/S2
GI: Soft, Nontender and Nondistended
Musculoskeletal: Edema, Right Lower Extrem and Edema, Left Lower Extrem
Neuro: Awake
Psych: Calm; Negative Intact Judgement/Insight
[2024-12-06 08:27] LABS: Hematocrit 29.4 % (39.0-52.0); Hemoglobin 9.0 g/dL (13.0-18.0)
[2024-12-06 08:40] LABS: Carbon Dioxide 31 mmol/L (22-30); Chloride 99 mmol/L (98-107); Potassium 4.1 mmol/L (3.5-5.1); Sodium 132 mmol/L (135-145)
[2024-12-06] MEDS: RETACRIT 10000 UNITS IV (09:03)
[2024-12-06] MEDS: PACERONE PO (09:04)
[2024-12-06] MEDS: RENVELA PO ×2 (09:24→12:26)
[2024-12-06] MEDS: SANTYL OINTMENT 1 APPLIC TOPICAL (09:38)
[2024-12-06] MEDS: PEPCID 20 MG PO (09:38)
[2024-12-06] MEDS: ELIQUIS 10 MG PO (09:38)
[2024-12-06] MEDS: NEURONTIN 100 MG PO (09:38)
[2024-12-06] MEDS: PROGRAF 2 MG PO (09:39)
[2024-12-06] MEDS: MAGNESIUM OXIDE 400 MG PO (09:39)
[2024-12-06] MEDS: ULORIC 40 MG PO (09:39)
[2024-12-06] MEDS: FLEXBUMIN 25% FOR HEMODIALYSIS 12.5 GRAMS IV ×2 (10:02→11:03)
[2024-12-06] MEDS: MANNITOL 25% 12.5 GRAMS IV (10:02)
--- NOTE | 2024-12-06 10:06 | W.PN.NEPH.HD ---
Assessment
-
seen on hd curly
Progress Note - Hemodialysis
-
Date of Service: December 06, 2024
Duration: 30 minutes and 3 hours
Potassium Bath: 3
Calcium Bath: 2.5
Opti-Dialyzer: 160
Ultrafiltration: Other (2kg)
Blood Flow: 400
Dialysate Flow: 600
Heparin: 0
EPO: [id number] units
--- NOTE | 2024-12-06 14:16 | W.DCSUMMARY ---
Discharge Summary
Discharge Data
Date of Admission: 11/21/24
Date of Discharge: 12/06/24
Total time spent discharging patient (in min): 40
-
Pending Results: No
Hospital Course
Principal Diagnosis:
Chest pain, likely multifactorial due to rapid ventricular rate, pulm embolism, right pleural effusion with pneumonia.
Sepsis, likely due to right lung pneumonia and sacral decubitus ulcer.
Extensive right leg DVT with PE.
Severe clinical deconditioning, with transitioning to hospice care
Chronic Diagnoses:�
Essential Hypertension
Insomnia, chronic
Hyperlipidemia
Gout on Febuxostat
Neuropathy on gabapentin
Anemia of chronic disease
Chronic hyponatremia
ESRD on Dialysis.
History of kidney transplant which has now failed
Consultations:�
Cardiology
Nephrology
Procedures:�
None
Clinical course:�
This is a 74-year-old clinically deconditioned male, with past medical history as stated above, who presented from his assisted with chest pain.
Problem 1:
Chest pain, likely multifactorial due to rapid ventricular rate, pulm embolism, right pleural effusion with pneumonia.
He underwent cardioversion which converted him back to normal sinus rhythm.
He was started with amiodarone this admission which was not continued as he was discharged to start hospice at his facility.
His echocardiogram revealed severely reduced LVEF at 29% with global hypokinesis.
Problem 2:
Sepsis, likely due to right lung pneumonia and sacral decubitus ulcer.
The patient initially received antibiotic while in the hospital, but no further antibiotic was continued following discharge with the plan to start hospice back at his facility.
Problem 3:
Extensive right leg DVT with PE.
He was started with Eliquis therapeutic dose, but this was not continued following discharge with the plan to start hospice at his facility.
Discharge Plan
-
Patient Disposition: Home with Hospice
Discharge Diagnosis/Procedures: Sepsis likely due to right lung pneumonia and sacral decubitus ulcer;
Extensive right leg DVT with PE;
End-stage renal disease on hemodialysis;
History of kidney transplant which has now failed;
Severe clinical deconditioning
Condition: Critical
Diet: As tolerated
Additional Diets: for comfort
Driving Restrictions: No driving
Other Services: Hospice
Wound Care: Wound Care Instructions
Sacral Wound- Clean with saline, apply a thin layer of barrier ointment to surrounding open areas. Apply gifty thick layer of Santyl to necrotic areas and cover with adaptic and dry dressing. Change daily and PRN drainage.
Multiple areas of DTI on left foot, ankle toes- Keep covered with silicone border foam dressing and change Q 3 days and PRN.
Right Lower Leg Proximal Wound- Clean with saline, apply Hydrogel and cover with adaptic. Change daily and PRN drainage.
Right Lower Leg Distal wound- Clean with normal saline and apply adaptic and silicone border foam. Change daily and PRN drainage.
Bilateral Heels- No-sting barrier and adhesive foam to heels. Change Q 3 days.
Air bed
Turning schedule
Keep heels off-loaded with pillow or air cushion under calves
Turning wedge as tolerated to off-load sacrum
Referrals:
Tone Arreguin MD [Family Provider, Family Practice] - in less than 1 week
Additional Discharge Medication Instructions: Majority of therapeutic medications can be stopped with transitioning to hospice care.
Hemodialysis can be stopped with transitioning to hospice care
Prescriptions:
Continued
acetaminophen [Tylenol] 325 mg Tablet
650 mg PO Q6HPRN PRN (Reason: mild pain)
magnesium hydroxide [Milk of Magnesia] 400 mg/5 mL Suspension
2,400 mg PO DAILYPRN PRN (Reason: if no bm by 3rd day)
bisacodyl [Dulcolax (bisacodyl)] 10 mg Suppository
10 mg MD DAILYPRN PRN (Reason: if no bm aftr mom)
gabapentin 100 mg Capsule
100 mg PO HS Qty: 14 0RF
tacrolimus [Prograf] 1 mg Capsule
2 mg PO DAILY Qty: 14 0RF
febuxostat 40 MG tablet
40 mg PO DAILY Qty: 14 0RF
sevelamer HCl 800 mg Tablet
800 mg PO TID
midodrine 5 mg Tablet
5 mg PO TID
famotidine 20 mg Tablet
20 mg PO DAILY
gabapentin 100 mg Tablet
100 mg PO TID
melatonin 3 mg tablet
6 mg PO HS
Discontinued
magnesium oxide 400 mg magnesium Tablet
400 mg PO BID
atorvastatin 40 MG tablet
40 mg PO HS Qty: 14 0RF
aspirin 81 mg Tablet,Delayed Release (Dr/Ec)
81 mg PO DAILY Qty: 14 0RF
metoprolol succinate [Toprol XL] 25 mg tablet extended release 24 hr
25 mg PO DAILY Qty: 30 0RF
amlodipine 5 mg tablet
1 mg PO DAILY
Discharge Orders:
Discharge Patient (As Directed); Ordered 12/06/24
Ordered By: Lilian Montaño
Discharge Date and Time
Print Language: PERSIAN
--- NOTE | 2024-12-06 15:02 | CM ---
Following up on Patient. LIBORIO Edmondson is working on Hospice discharge to his facility: [facility].
LIBORIO Edmondson spoke to [facility] Boiler Control Technician: Arun #[phone] who could not reach the [place] via phone [phone] so LIBORIO Edmondson immediately arranged a conference call. The plan is to get the consents to [place] via email, LIBORIO fax clinical, once
consents are signed then arrange for return tonight.
LIBORIO Edmondson learned a short time later that consents were signed, LIBORIO Edmondson faxed the clinical with the hospice order, and arranged transport for 5:30pm. An [employer] will be delivered by then. LIBORIO Edmondson informed [place] and IMM completed. Out of
Hospital DNR on the chart.
PLAN: Hospice with [facility]
Report:#[phone]
--- NOTE | 2024-12-06 15:09 | PTCARENOTE ---
Pt remains confused. 1.3kg taken off during HD today. Plan for d.c. at 1730 to [facility].
--- NOTE | 2024-12-06 17:06 | PTCARENOTE ---
Pt being d.c. to [facility] with [facility]. Report given to [facility] [place] [facility].
== END 2024-12-06 19:02 | disposition hospice, home (50) | DRG 871 ==
LOC: IMU 16:39
PROVIDERS: Emergency Medicine; Internal Medicine; Internal Medicine Cardiovascular Disease; Internal Medicine Nephrology; Radiology Vascular & Interventional Radiology; Registered Nurse; Specialist; ADMITTING PHYSICIAN Internal Medicine; ATTENDING PHYSICIAN Internal Medicine; CONSULT PHYSICIAN Internal Medicine Cardiovascular Disease; CONSULT PHYSICIAN Nurse Practitioner Gerontology; CONSULT PHYSICIAN Specialist; EMERGENCY PHYSICIAN Emergency Medicine; FAMILY PHYSICIAN Family Medicine
PROC: 5A1D70Z Performance of Urinary Filtration, Intermittent, Less than 6 Hours Per Day (ICD-10-PCS; 2024-11-22)
PROC: 0W993ZZ Drainage of Right Pleural Cavity, Percutaneous Approach (ICD-10-PCS; 2024-11-23)
PROC: 02HV33Z Insertion of Infusion Device into Superior Vena Cava, Percutaneous Approach (ICD-10-PCS; 2024-11-23)
PROC: 5A2204Z Restoration of Cardiac Rhythm, Single (ICD-10-PCS; 2024-12-02)
PROC: B24BZZ4 Ultrasonography of Heart with Aorta, Transesophageal (ICD-10-PCS; 2024-12-02)
DX: A41.9 Sepsis, unspecified organism (principal); I26.99 Other pulmonary embolism without acute cor pulmonale; J18.9 Pneumonia, unspecified organism; N18.6 End stage renal disease; J90 Pleural effusion, not elsewhere classified; I12.0 Hypertensive chronic kidney disease with stage 5 chronic kidney disease or end stage renal disease; F01.518 Vascular dementia, unspecified severity, with other behavioral disturbance; E87.1 Hypo-osmolality and hyponatremia; T86.12 Kidney transplant failure; I82.411 Acute embolism and thrombosis of right femoral vein; I82.431 Acute embolism and thrombosis of right popliteal vein; I82.451 Acute embolism and thrombosis of right peroneal vein; I82.441 Acute embolism and thrombosis of right tibial vein; I42.9 Cardiomyopathy, unspecified; I48.3 Typical atrial flutter; L89.150 Pressure ulcer of sacral region, unstageable; Z51.5 Encounter for palliative care; Z99.2 Dependence on renal dialysis; K21.9 Gastro-esophageal reflux disease without esophagitis; I48.91 Unspecified atrial fibrillation; I95.1 Orthostatic hypotension; G47.00 Insomnia, unspecified; M1A.9XX0 Chronic gout, unspecified, without tophus (tophi); D63.1 Anemia in chronic kidney disease; E83.39 Other disorders of phosphorus metabolism; R25.1 Tremor, unspecified; R60.0 Localized edema; E78.00 Pure hypercholesterolemia, unspecified; F90.9 Attention-deficit hyperactivity disorder, unspecified type; G62.9 Polyneuropathy, unspecified; M19.90 Unspecified osteoarthritis, unspecified site; Z66 Do not resuscitate; F10.10 Alcohol abuse, uncomplicated; M48.00 Spinal stenosis, site unspecified; R19.00 Intra-abdominal and pelvic swelling, mass and lump, unspecified site; Y83.0 Surgical operation with transplant of whole organ as the cause of abnormal reaction of the patient, or of later complication, without mention of misadventure at the time of the procedure; R09.02 Hypoxemia; Z74.01 Bed confinement status; Z79.82 Long term (current) use of aspirin; Z87.891 Personal history of nicotine dependence; Z79.52 Long term (current) use of systemic steroids
CPT/HCPCS: 32555; 70450; 71045; 71275; 74230; 76604; 80048; 80051; 80053; 80202; 82533; 82728; 82962; 83540; 83550; 83605; 83615; 83735; 83986; 84155; 84157; 84443; 84484; 85014; 85018; 85025; 85027; 85730; 87015; 87040; 87070; 87205; 88112; 88305; 92526; 92610; 92611; 92960; 93005; 93306; 93312; 93320; 93325; 93970; 96365; 96366; 96375; 99285; G0257; P9047; Q5106; Q9967